=== PATIENT | female | born 1970 | race Caucasian/White ===

== ENCOUNTER → 2016-09-13 | Outpatient (CLI) | payer OTHER ==
--- NOTE | 2016-09-14 08:34 | MM ---
Reason for exam: clinical finding. Last mammogram was performed 2 years and 11 months ago. History: Patient had first child at age 29. Family history of breast cancer in mother at age 50 and breast cancer in aunt. Took hormonal contraceptives for 1 year beginning at age 38. Indicated problem(s): palpable abnormality in the right breast. Physical Findings: Nurse Summary: a 1cm nodule in the right breast at 11 o'clock (nurse rm). MG 3D Diag Mammo W/Cad MEGHANA Bilateral CC and MLO view(s) were taken. Prior study comparison: October 15, 2013, bilateral MG screening mammo w CAD. November 07, 2012, right diagnostic mammogram w/CAD. There are scattered fibroglandular densities. There is no discrete abnormality including area of concern. No significant new findings when compared with previous films. These results were verbally communicated with the patient and result sheet given to the patient on 09/13/16. ASSESSMENT: Incomplete: need additional imaging evaluation, BI-RAD 0 RECOMMENDATION: Ultrasound of the right breast. Manage patient on a clinical basis.
--- NOTE | 2016-09-14 09:37 | USB ---
Reason for exam: additional evaluation requested from abnormal screening. History: Patient had first child at age 29. Family history of breast cancer in mother at age 50 and breast cancer in aunt. Took hormonal contraceptives for 1 year beginning at age 38. US Breast Limited RT Right breast ultrasound indicates a 0.7 x 0.4 x 0.4cm oval, hyperechoic superiorly with hypoechoic posteriorly lesion at 10 o'clock. These results were verbally communicated with the patient and result sheet given to the patient on 09/13/16. ASSESSMENT: Suspicious, BI-RAD 4 RECOMMENDATION: Ultrasound core biopsy of the right breast. Called Dr. Amador with mammographic findings and has scheduled an appointment for the patient for 10/14/16 at 10:[address] Presley. Ultrasound core biopsy scheduled for 09/22/16 at 1 o'clock. PRELIMINARY REPORT CALLED AND FAXED TO DR. PRESLEY ON 09/14/16 AT 300/TP.
== END | disposition home or self-care (01) ==
LOC: RADMAMWWP 14:43
PROVIDERS: ATTEND Family Medicine
DX: N63 Unspecified lump in breast (principal); R92.8 Other abnormal and inconclusive findings on diagnostic imaging of breast
CPT/HCPCS: 76642; G0204; G0279

== ENCOUNTER → 2016-09-22 | Day surgery (SDC) | payer OTHER ==
[~2016-09-22] MED LIST: ALPRAZolam 0.25 MG TAB ONE; BACITRACIN OINT 1 EACH PACKET TOPICAL ONE; LIDOCAINE 1% INJ 10MG/ML (20 ML MDV) ONE; LIDOCAINE 1%-EPI 1:100,000 20 ML VIAL ONE
--- NOTE | 2016-09-22 14:53 | USB ---
EXAMINATION TYPE: US biopsy breast VAD RT, MG diagnostic mammo RT wo CAD DATE OF EXAM: 09/22/2016 1:56 PM CLINICAL HISTORY: R92.8 Abn ultrasound. Palpable abnormality. TECHNIQUE: Ultrasound guided core biopsy of right breast with clip placement and follow-up two-view mammogram. COMPARISON: Right breast ultrasound and mammogram September 2016 FINDINGS: The procedure of ultrasound guided core biopsy was explained to the patient. Benefits, alternatives, and risks were discussed. An informed consent was then obtained. The patient was placed in supine positioning for imaging and for the procedure. Preprocedure ultrasound redemonstrates vague slightly shadowing hypoechoic area 10:00 position in right breast measuring up to 1.1 cm. The overlying skin was prepped and draped in usual sterile fashion. Lidocaine was used as anesthetic into the skin and subcutaneous tissue up to area of concern in the right breast. Lidocaine with epinephrine is used into the deeper tissue. Under ultrasound guidance, a 12-gauge vacuum assisted biopsy gun device was used to obtain 3 core samples. Following this, a biopsy clip was left in lesion. The patient tolerated the procedure well without any immediate complication. The patient was kept in the radiology department for short stay after the procedure and then discharged home in stable condition. Postprocedure mammogram shows successful deployment of clip correlating to level of palpable abnormality. IMPRESSION: Successful, uncomplicated ultrasound guided core biopsy of area of concern in the right breast, full pathology results to follow. Low to intermediate index of suspicion noted at time of procedure. Pathology Results: Benign BREAST, RIGHT, ULTRASOUND CORE BIOPSY: BENIGN BREAST WITH PROMINENT ADIPOSE TISSUE AND FOCAL FIBROCYSTIC CHANGE (STROMAL FIBROSIS AND CYST FORMATION). Recommendation Follow up ultrasound of the right breast in 6 months. HELGA
== END ==
LOC: RADUSWWP 11:45
PROVIDERS: ATTEND Surgery
DX: N60.01 Solitary cyst of right breast (principal); N60.31 Fibrosclerosis of right breast; R92.8 Other abnormal and inconclusive findings on diagnostic imaging of breast; Z88.6 Allergy status to analgesic agent; Z88.5 Allergy status to narcotic agent; Z88.0 Allergy status to penicillin
CPT/HCPCS: 88305; 19083; G0206; A4648; J2001

== ENCOUNTER 2016-12-09 16:58 | Emergency (ER) | payer OTHER ==
[2016-12-09] MEDS ORDERED: SODIUM CHLORIDE 0.9% 1,000 ML IV ONE (18:57)
--- NOTE | 2016-12-09 19:03 | ED ---
Abdominal Pain HPI - General Chief Complaint: Abdominal Pain Stated Complaint: Abd Pain Time Seen by Provider: 12/09/16 18:32 Source: patient, RN notes reviewed Mode of arrival: ambulatory Limitations: no limitations - History of Present Illness Initial Comments: Patient is a 46-year-old female presents to the emergency room for evaluation of abdominal pain. Patient states she noticed pain on the right side of her abdomen earlier this morning. Patient states she got home she noticed her abdomen appeared swollen so she came she came here to be evaluated. Patient states she had a lap band [place] [address] Presley. Patient denies nausea or vomiting. Patient denies headache or dizziness. Patient denies chest pain or shortness of breath. Patient denies any other abdominal surgical history. Patient also states that since she's been here she's had 3 episodes of diarrhea. Patient denies blood in stools or dark tarry stools. Patient denies recent travel out of the country. Patient denies new foods. Patient denies recent antibiotic use. - Related Data Home Medications Medication Instructions Recorded Confirmed Topiramate [Topamax] 50 mg PO BID 11/06/13 12/09/16 Inulin/Chromium Picolinate [Fiber 1 tab PO DAILY 12/09/16 12/09/16 Gummies Chew] Multivitamin [Multivitamins Adult 1 tab PO DAILY 12/09/16 12/09/16 Gummies] Vitamin C/Biotin [Hair, Skin and 1 tab PO DAILY 12/09/16 12/09/16 Nails] Previous Rx's Medication Instructions Recorded Dicyclomine [Bentyl] 10 mg PO TID PRN #12 capsule 12/09/16 Ondansetron Odt [Zofran Odt] 4 mg PO Q8HR PRN #12 tab 12/09/16 Sulfamethox-Tmp 800-160Mg [Bactrim 1 tab PO Q12HR 10 Days 12/09/16 DS 800-160 mg] Allergies Allergy/AdvReac Type Severity Reaction Status Date / Time codeine Allergy Swelling Verified 12/09/16 18:41 Penicillins Allergy Swelling Verified 12/09/16 18:41 aspirin AdvReac Swelling Verified 12/09/16 18:41 Review of Systems ROS Statement: Those systems with pertinent positive or pertinent negative responses have been documented in the HPI. ROS Other: All systems not noted in ROS Statement are negative. Past Medical History Past Medical History: Hypertension Additional Past Medical History / Comment(s): Migraines History of Any Multi-Drug Resistant Organisms: None Reported Past Surgical History: Uterine Ablation Additional Past Surgical History / Comment(s): gastric sleeve Past Psychological History: No Psychological Hx Reported Smoking Status: Former smoker Past Alcohol Use History: Rare Past Drug Use History: None Reported - Past Family History Mother Family Medical History: COPD (Mother is a 60-year-old has history of diabetes hypertension and emphysema), Diabetes Mellitus, Hypertension Father Family Medical History: COPD, Diabetes Mellitus, Hypertension (Father is 70-year -old has history of diabetes hypertension and COPD) Sister(s) Family Medical History: No Reported History (Patient has one sister and 3 half- sisters) Brother(s) Family Medical History: No Reported History (Patient has 2 brothers and 2 half- brothers no major medical problems) Son(s) Family Medical History: No Reported History (Patient had one stillborn at 6 months gestation, she has an adopted son.) General Exam - General Exam Comments Initial Comments: sitting in exam room, no acute distress. Limitations: no limitations General appearance: alert, in no apparent distress Head exam: Present: atraumatic, normocephalic, normal inspection Eye exam: Present: normal appearance ENT exam: Present: normal exam Neck exam: Present: normal inspection Respiratory exam: Present: normal lung sounds bilaterally. Absent: respiratory distress Cardiovascular Exam: Present: regular rate, normal rhythm, normal heart sounds GI/Abdominal exam: Present: soft, normal bowel sounds. Absent: distended, tenderness, guarding, rebound, rigid Extremities exam: Present: normal inspection Back exam: Present: normal inspection Neurological exam: Present: alert, oriented X3, CN II-XII intact, normal gait Psychiatric exam: Present: normal affect, normal mood Skin exam: Present: warm, dry, intact, normal color. Absent: rash Course Vital Signs 12/09/16 12/09/16 12/09/16 17:06 19:43 22:38 Temperature 98.5 F 97.2 F L Pulse Rate 70 63 66 Respiratory 20 18 Rate Blood Pressure 161/97 140/63 175/84 O2 Sat by Pulse 99 96 97 Oximetry 12/09/16 12/09/16 23:35 23:56 Temperature 97.9 F Pulse Rate 70 Respiratory 16 Rate Blood Pressure 153/92 O2 Sat by Pulse 99 Oximetry Medical Decision Making - Medical Decision Making Patient is a 46-year-old female since emergency room for evaluation of abdominal pain. Abdomen/pelvis CT: Wall thickening or inflammatory hoarseness of the duodenum and proximal jejunum. Differential considerations include enteritis due to infectious or inflammatory bowel disease.patient be placed on antibiotics to treat pharyngitis. Patient is sent home with Zofran and Bentyl for pain. Advised patient to follow-up with her primary care provider or general surgeon for reevaluation. Patient states she understands everything that was discussed with her. Return parameters discussed. Case discussed with Dr. Olivas. - Lab Data Result diagrams: 12/09/16 19:13 12/09/16 19:13 Lab Results 12/09/16 12/09/16 12/09/16 Range/Units 18:49 18:49 19:04 WBC (3.8-10.6) k/uL RBC (3.80-5.40) m/uL Hgb (11.4-16.0) gm/dL Hct (34.0-46.0) % MCV (80.0-100.0) fL MCH (25.0-35.0) pg MCHC (31.0-37.0) g/dL RDW (11.5-15.5) % Plt Count (150-450) k/uL Neutrophils % % Lymphocytes % % Monocytes % % Eosinophils % % Basophils % % Neutrophils # (1.3-7.7) k/uL Lymphocytes # (1.0-4.8) k/uL Monocytes # (0-1.0) k/uL Eosinophils # (0-0.7) k/uL Basophils # (0-0.2) k/uL Sodium (137-145) mmol/L Potassium (3.5-5.1) mmol/L Chloride (98-107) mmol/L Carbon Dioxide (22-30) mmol/L Anion Gap mmol/L BUN (7-17) mg/dL Creatinine (0.52-1.04) mg/dL Est GFR (MDRD) Af Amer (>60 ml/min/1.73 sqM) Est GFR (MDRD) Non-Af (>60 ml/min/1.73 sqM) Glucose (74-99) mg/dL Calcium (8.4-10.2) mg/dL Magnesium (1.6-2.3) mg/dL Total Bilirubin (0.2-1.3) mg/dL AST (14-36) U/L ALT (9-52) U/L Alkaline Phosphatase (38-126) U/L Total Protein (6.3-8.2) g/dL Albumin (3.5-5.0) g/dL Amylase (30-110) U/L Lipase (23-300) U/L Urine Color Yellow Urine Appearance Cloudy H (Clear) Urine pH 5.5 (5.0-8.0) Ur Specific [place] 1.021 (1.001-1.035) Urine Protein Negative (Negative) Urine Glucose (UA) Negative (Negative) Urine Ketones Negative (Negative) Urine Blood Trace H (Negative) Urine Nitrite Negative (Negative) Urine Bilirubin Negative (Negative) Urine Urobilinogen <2.0 (<2.0) mg/dL Ur Leukocyte Esterase Negative (Negative) Urine RBC 6 H (0-5) /hpf Urine WBC 1 (0-5) /hpf Ur Squamous Epith Cells 2 (0-4) /hpf Urine Mucus Rare H (None) /hpf Stool Occult Blood Negative (Negative) C. difficile (EIA) Intrp Negative (Negative) 12/09/16 12/09/16 Range/Units 19:13 19:13 WBC 8.3 (3.8-10.6) k/uL RBC 4.87 (3.80-5.40) m/uL Hgb 14.9 (11.4-16.0) gm/dL Hct 44.0 (34.0-46.0) % MCV 90.3 (80.0-100.0) fL MCH 30.6 (25.0-35.0) pg MCHC 33.8 (31.0-37.0) g/dL RDW 12.9 (11.5-15.5) % Plt Count 206 (150-450) k/uL Neutrophils % 56 % Lymphocytes % 36 % Monocytes % 5 % Eosinophils % 1 % Basophils % 0 % Neutrophils # 4.6 (1.3-7.7) k/uL Lymphocytes # 3.0 (1.0-4.8) k/uL Monocytes # 0.4 (0-1.0) k/uL Eosinophils # 0.1 (0-0.7) k/uL Basophils # 0.0 (0-0.2) k/uL Sodium 142 (137-145) mmol/L Potassium 4.2 (3.5-5.1) mmol/L Chloride 106 (98-107) mmol/L Carbon Dioxide 24 (22-30) mmol/L Anion Gap 12 mmol/L BUN 19 H (7-17) mg/dL Creatinine 0.80 (0.52-1.04) mg/dL Est GFR (MDRD) Af Amer >60 (>60 ml/min/1.73 sqM) Est GFR (MDRD) Non-Af >60 (>60 ml/min/1.73 sqM) Glucose 87 (74-99) mg/dL Calcium 9.2 (8.4-10.2) mg/dL Magnesium 2.0 (1.6-2.3) mg/dL Total Bilirubin 0.3 (0.2-1.3) mg/dL AST 19 (14-36) U/L ALT 31 (9-52) U/L Alkaline Phosphatase 72 (38-126) U/L Total Protein 6.8 (6.3-8.2) g/dL Albumin 4.2 (3.5-5.0) g/dL Amylase 88 (30-110) U/L Lipase 193 (23-300) U/L Urine Color Urine Appearance (Clear) Urine pH (5.0-8.0) Ur Specific [place] (1.001-1.035) Urine Protein (Negative) Urine Glucose (UA) (Negative) Urine Ketones (Negative) Urine Blood (Negative) Urine Nitrite (Negative) Urine Bilirubin (Negative) Urine Urobilinogen (<2.0) mg/dL Ur Leukocyte Esterase (Negative) Urine RBC (0-5) /hpf Urine WBC (0-5) /hpf Ur Squamous Epith Cells (0-4) /hpf Urine Mucus (None) /hpf Stool Occult Blood (Negative) C. difficile (EIA) Intrp (Negative) - Radiology Data Radiology results: report reviewed, image reviewed Disposition Clinical Impression: Enteritis Disposition: HOME SELF-CARE Condition: Good Instructions: Enteritis (ED) Additional Instructions: Taking antibiotics as directed. Take Bentyl as needed for pain. Take Zofran as needed for nausea. Please follow-up with primary care provider or general surgeon. If any new symptom arises or symptoms worsen, return to ER as soon as possible. Prescriptions: Ondansetron Odt [Zofran Odt] 4 mg PO Q8HR PRN #12 tab PRN Reason: Nausea Sulfamethox-Tmp 800-160Mg [Bactrim DS 800-160 mg] 1 tab PO Q12HR 10 Days Dicyclomine [Bentyl] 10 mg PO TID PRN #12 capsule PRN Reason: Nausea Referrals: Chino Amador MD [Primary Care Provider] - 1-2 days Time of Disposition: 23:38
[2016-12-09 19:11] LABS: Appearance,Urine Cloudy (Clear); Bilirubin,Urine Negative (Negative); Glucose,Urine (UA) Negative (Negative); Ketones,Urine Negative (Negative); Leukocyte Esterase,Urine Negative (Negative); Mucus,Urine Rare /hpf; Nitrite,Urine Negative (Negative); PH, Urine 5.5 (5.0-8.0); Particle Count 1429; Protein,Urine Negative (Negative); RBC,Urine 6 /hpf (0-5); Specific Gravity,Urine 1.021 (1.001-1.035); Squamous Epithelial Cell,Urine 2 /hpf (0-4); UA Billing (MACRO vs. MICRO) MICRO; Urobilinogen,Urine <2.0 mg/dL (<2.0); WBC,Urine 1 /hpf (0-5)
[2016-12-09 19:25] LABS: Basophils % (A) 0 %; CH 31.1; CHCM 34.5; Eosinophils # (A) 0.1 k/uL (0-0.7); Eosinophils % (A) 1 %; HDW 2.46; HGB 14.9 gm/dL (11.4-16.0); Luc # (Auto) 0.12; Luc % (Auto) 2; Lymphocytes % (A) 36 %; MCH 30.6 pg (25.0-35.0); MCHC 33.8 g/dL (31.0-37.0); MCV 90.3 fL (80.0-100.0); Mean Platelet Volume 7.7; Monocytes # (A) 0.4 k/uL (0-1.0); Monocytes % (A) 5 %; Neutrophils # (A) 4.6 k/uL (1.3-7.7); Neutrophils % (A) 56 %; RBC 4.87 m/uL (3.80-5.40); RDW 12.9 % (11.5-15.5); WBC 8.3 k/uL (3.8-10.6); WBC (Perox) 8.16
[2016-12-09 19:35] LABS: ALT 31 U/L (9-52); AST 19 U/L (14-36); Alkaline Phosphatase 72 U/L (38-126); Amylase 88 U/L (30-110); Anion Gap 12 mmol/L; Blood Urea Nitrogen 19 mg/dL (7-17); Calcium 9.2 mg/dL (8.4-10.2); Carbon Dioxide 24 mmol/L (22-30); Chloride 106 mmol/L (98-107); Glucose 87 mg/dL (74-99); Non-African American GFR(MDRD) >60 (>60 ml/min/1.73 sqM); Potassium 4.2 mmol/L (3.5-5.1); Sodium 142 mmol/L (137-145); Total Bilirubin 0.3 mg/dL (0.2-1.3); Total Protein 6.8 g/dL (6.3-8.2)
[2016-12-09] MEDS ORDERED: RX INFO: IV CONTRAST WAS GIVEN 1 EACH MISC MISCELLANE PRN (20:29)
[2016-12-09] MEDS ORDERED: IOHEXOL 350 MG/ML 25 ML BOTTLE (ORAL USE) PO PRN (20:29)
[2016-12-09] MEDS ORDERED: MORPHINE SULFATE 4 MG/ML SYRINGE IVP STA ×2 (20:31→23:31)
--- NOTE | 2016-12-09 23:10 | CT ---
EXAM: CT Abdomen and Pelvis With Intravenous Contrast CLINICAL HISTORY: Reason: Pain TECHNIQUE: Axial computed tomography images of the abdomen and pelvis with intravenous contrast. CTDI is 19.71 mGy and DLP is 1461 mGy-cm. This CT exam was performed using one or more of the following dose reduction techniques: automated exposure control, adjustment of the mA and/or kV according to patient size, and/or use of iterative reconstruction technique. COMPARISON: Noncontrast CT abdomen-pelvis 03/24/2016. FINDINGS: Lower thorax: No acute findings. ABDOMEN: Liver: Mild fatty infiltration of liver without focal lesion. Gallbladder and bile ducts: Unremarkable. No calcified stones. No ductal dilation. Pancreas: Unremarkable. No mass. No ductal dilation. Spleen: Unremarkable. No splenomegaly. Adrenals: Unremarkable. No mass. Kidneys and ureters: Unremarkable. No renal mass. No hydronephrosis. Stomach and bowel: Mild wall thickening third and fourth portions of the duodenum and proximal jejunum. Borderline wall thickening of the hepatic flexure, possibly related to underdistention. Mild sigmoid diverticulosis without evidence of acute diverticulitis. Gastric postsurgical changes. No evidence of bowel obstruction or perforation. Contrast in distal esophagus which may be related to delayed esophageal clearing or gastroesophageal reflux. Appendix: No findings to suggest acute appendicitis. PELVIS: Bladder: Unremarkable. Reproductive: Unremarkable as visualized. ABDOMEN and PELVIS: Intraperitoneal space: Unremarkable. No free air. No abnormal fluid collection. Bones/joints: No acute bony abnormalities Soft tissues: Unremarkable. Vasculature: No abdominal aortic aneurysm. Lymph nodes: No pathologically enlarged lymphadenopathy identified IMPRESSION: Mild wall thickening third and fourth portions of the duodenum and proximal jejunum. Differential considerations would include enteritis due to infectious or inflammatory bowel disease. Apparent wall thickening of the hepatic flexure, possibly related to underdistention. No evidence of bowel obstruction. Mild sigmoid diverticulosis without evidence of acute diverticulitis. Hepatic steatosis.
[2016-12-09 23:37] VITALS: BP 153/92; PULSE 70; RESP 16
[2016-12-09 23:57] VITALS: TEMP 97.9
== END 2016-12-09 23:57 | disposition home or self-care (01) ==
LOC: EC 16:58
DX: K52.9 Noninfective gastroenteritis and colitis, unspecified (principal); Z87.891 Personal history of nicotine dependence; Z79.899 Other long term (current) drug therapy; Z88.0 Allergy status to penicillin; Z88.5 Allergy status to narcotic agent; Z88.6 Allergy status to analgesic agent; Z98.84 Bariatric surgery status; Z98.890 Other specified postprocedural states
CPT/HCPCS: 99284; 96374; 96376; 96361; 36415; 80053; 82150; 83690; 83735; 85025; 82272; 81001; 87324; 87086; 89055; 74177; J2270; Q9967

== ENCOUNTER → 2017-04-29 | Outpatient (CLI) | payer OTHER ==
--- NOTE | 2017-05-03 08:10 | USB ---
Reason for exam: follow-up at short interval from prior study. History: Patient had first child at age 29. Family history of breast cancer in mother at age 50 and breast cancer in aunt. Benign US biopsy breast VAD RT of the right breast, September 22, 2016. Took hormonal contraceptives for 1 year beginning at age 38. Physical Findings: Nurse Summary:There is a 1cm round movable nodule in the right breast at 12 o'clock, and a 1cm soft lump questionable lipoma in the right breast at 2 o'clock (nurse mj). US Breast RT Right breast ultrasound includes all four quadrants, the retroareolar region and axilla. Finding demonstrates no cystic or solid lesion seen. These results were verbally communicated with the patient and result sheet given to the patient on 04/29/17. ASSESSMENT: Negative, BI-RAD 1 RECOMMENDATION: Follow-up diagnostic mammogram of both breasts in 6 months. Back on schedule.
== END | disposition home or self-care (01) ==
LOC: RADUSWWP 10:20
PROVIDERS: ATTEND Surgery
DX: R92.8 Other abnormal and inconclusive findings on diagnostic imaging of breast (principal)

== ENCOUNTER 2017-06-15 22:12 | Emergency (ER) | payer OTHER ==
[2017-06-15] MEDS ORDERED: ONDANSETRON 4 MG/2 ML VIAL IVP STA (23:06)
[2017-06-15] MEDS ORDERED: HYDROmorphone 0.5 MG/0.5 ML SYRINGE IVP STA (23:06)
[2017-06-15] MEDS ORDERED: RX INFO: IV CONTRAST WAS GIVEN 1 EACH MISC MISCELLANE PRN (23:08)
[2017-06-15 23:41] LABS: Basophils % (A) 0 %; Eosinophils # (A) 0.1 k/uL (0-0.7); Eosinophils % (A) 1 %; HCT 42.1 % (34.0-46.0); HGB 13.8 gm/dL (11.4-16.0); Lymphocytes # (A) 1.9 k/uL (1.0-4.8); Lymphocytes % (A) 27 %; MCH 29.8 pg (25.0-35.0); MCHC 32.8 g/dL (31.0-37.0); Mean Platelet Volume 7.2; Monocytes # (A) 0.4 k/uL (0-1.0); Monocytes % (A) 6 %; Neutrophils # (A) 4.4 k/uL (1.3-7.7); Neutrophils % (A) 64 %; Platelet Count 219 k/uL (150-450); RBC 4.63 m/uL (3.80-5.40); RDW 12.3 % (11.5-15.5); WBC 6.9 k/uL (3.8-10.6)
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
[2017-06-15 23:55] LABS: ALT 21 U/L (9-52); AST 16 U/L (14-36); Alcohol <10 mg/dL; Alkaline Phosphatase 66 U/L (38-126); Anion Gap 10 mmol/L; Blood Urea Nitrogen 18 mg/dL (7-17); Calcium 9.3 mg/dL (8.4-10.2); Carbon Dioxide 28 mmol/L (22-30); Chloride 102 mmol/L (98-107); Glucose 114 mg/dL (74-99); Potassium 4.3 mmol/L (3.5-5.1); Sodium 140 mmol/L (137-145); Total Bilirubin 0.3 mg/dL (0.2-1.3); Total Protein 6.6 g/dL (6.3-8.2)
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
--- NOTE | 2017-06-16 00:17 | XR ---
EXAMINATION TYPE: XR pelvis AP view DATE OF EXAM: 06/16/2017 COMPARISON: NONE HISTORY: Pain after injury TECHNIQUE: Single view FINDINGS: Pelvic ring is intact. Proximal femurs and hip joints are intact. Sacroiliac joints appear normal. IMPRESSION: Negative pelvis exam.
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
[2017-06-16 00:39] LABS: Appearance,Urine Clear (Clear); Bilirubin,Urine Negative (Negative); Blood,Urine Negative (Negative); Color,Urine Light Yellow; Glucose,Urine (UA) Negative (Negative); Ketones,Urine Negative (Negative); Leukocyte Esterase,Urine Negative (Negative); Nitrite,Urine Negative (Negative); PH, Urine 6.5 (5.0-8.0); Protein,Urine Negative (Negative); Specific Gravity,Urine 1.015 (1.001-1.035); Urobilinogen,Urine <2.0 mg/dL (<2.0)
[2017-06-16] MEDS ORDERED: ACETAMINOPHEN TAB 500 MG TAB PO STA (00:42)
[2017-06-16 00:49] LABS: Amphetamine Screen,Urine Not Detected (NotDetected); Barbiturate Screen,Urine Not Detected (NotDetected); Benzodiazepines Screen,Urine Not Detected (NotDetected); Cocaine Screen,Urine Not Detected (NotDetected); Methadone Screen, Urine Not Detected (NotDetected); Opiate Screen,Urine Not Detected (NotDetected); Oxycodone Screen, Urine Not Detected (NotDetected); Phencyclidine Screen,Urine Not Detected (NotDetected); Tricyclic Antidepressant,Urine Not Detected (NotDetected); Urn Cannabinoid Scrn Not Detected (NotDetected)
[2017-06-16 01:05] VITALS: BP 134/74; PULSE 68; RESP 18; TEMP 97.7
== END 2017-06-16 01:03 | disposition home or self-care (01) ==
LOC: EC 22:12
DX: M54.5 Low back pain (principal); M54.6 Pain in thoracic spine; M54.2 Cervicalgia; R51 Headache; R10.11 Right upper quadrant pain; Z87.891 Personal history of nicotine dependence; Z79.899 Other long term (current) drug therapy; Z88.0 Allergy status to penicillin; Z88.5 Allergy status to narcotic agent; Z88.6 Allergy status to analgesic agent; V49.49XA Driver injured in collision with other motor vehicles in traffic accident, initial encounter; Y92.410 Unspecified street and highway as the place of occurrence of the external cause
CPT/HCPCS: 36415; 93005; 80053; 85025; 80320; 99285; 96374; 96375; J2405; J1170; 70450; 71045; 71260; 72125; 72170; 74177; 80306; 81003; 86850; 86900; 86901

== ENCOUNTER 2017-10-10 21:14 | Observation (INO) | payer OTHER ==
[2017-10-10 21:39] LABS: Glucose,Whole Blood 97 mg/dL (75-99)
[2017-10-10] MEDS ORDERED: SODIUM CHLORIDE 0.9% 1,000 ML IV STA (22:06)
[2017-10-10] MEDS ORDERED: SODIUM CHLORIDE 0.9% 500 ML IV STA (22:06)
[2017-10-10] MEDS ORDERED: hydrALAZINE HCL 20 MG/ML 1 ML VIAL IVP STA (22:08)
--- NOTE | 2017-10-10 22:13 | ED ---
Syncope HPI - General Chief Complaint: Syncope Stated Complaint: syncope/head injury Time Seen by Provider: 10/10/17 21:59 Source: patient Mode of arrival: wheelchair Limitations: altered mental status - History of Present Illness Initial Comments: This 46-year-old white female presents with family with the complaint of a syncopal episode. Her nephew was present when this occurred. She apparently had an argument with one of her kids and was severely stressed out. She walked into the other room and the nephew heard her fall and hit the ground. He states that she was unconscious when he found her. She was unconscious for approximately 2 minutes. She seemed quite slow to respond afterwards so they called EMS. She apparently likely hit her head. She is complaining of a headache. She also complains of some pain to her left ankle laterally. She later relates some pain into her left knee as well. She denies any other injuries. She does not have any neck pain. She is still fairly slow to respond and her family states that she normally is fairly quick to respond. She did take some acetaminophen earlier but denies any other recent drugs. She denies any previous similar incidents. She denies feeling anxious currently. No other modifying factors. She relates that she felt dizzy prior to the incident but otherwise does not remember what happened. The nephew did not see any seizure-like activity. - Related Data Home Medications Medication Instructions Recorded Confirmed No Known Home Medications [No 10/10/17 10/10/17 Known Home Medications] Allergies Allergy/AdvReac Type Severity Reaction Status Date / Time codeine Allergy Swelling Verified 10/10/17 21:55 Penicillins Allergy Swelling Verified 10/10/17 21:55 aspirin AdvReac Swelling Verified 10/10/17 21:55 Review of Systems ROS Statement: Those systems with pertinent positive or pertinent negative responses have been documented in the HPI. ROS Other: All systems not noted in ROS Statement are negative. Past Medical History Past Medical History: Hypertension Additional Past Medical History / Comment(s): Migraines History of Any Multi-Drug Resistant Organisms: None Reported Past Surgical History: Uterine Ablation Additional Past Surgical History / Comment(s): gastric sleeve Past Psychological History: No Psychological Hx Reported Smoking Status: Former smoker Past Alcohol Use History: Rare Past Drug Use History: None Reported - Past Family History Mother Family Medical History: COPD (Mother is a 60-year-old has history of diabetes hypertension and emphysema), Diabetes Mellitus, Hypertension Father Family Medical History: COPD, Diabetes Mellitus, Hypertension (Father is 70-year -old has history of diabetes hypertension and COPD) Sister(s) Family Medical History: No Reported History (Patient has one sister and 3 half- sisters) Brother(s) Family Medical History: No Reported History (Patient has 2 brothers and 2 half- brothers no major medical problems) Son(s) Family Medical History: No Reported History (Patient had one stillborn at 6 months gestation, she has an adopted son.) General Exam - General Exam Comments Initial Comments: GENERAL: The patient is well nourished and well hydrated. VITAL SIGNS: Heart rate, blood pressure, respiratory rate reviewed as recorded in nurse's notes. EYES: Pupils are round and reactive. Extraocular movements are intact. No conjunctival / lid redness or swelling. ENT: No external evidence of injury, swelling, or ecchymosis. Airway is patent. Throat is clear. NECK: Nontender. No swelling or evidence of injury. No subcutaneous emphysema. Trachea is midline. No thyroid mass. HEART: Regular rate and rhythm. Good peripheral pulses. LUNGS/CHEST: Breath sounds clear and equal bilaterally. No rales, rhonchi, or wheezes. No ecchymosis, subcutaneous emphysema, or tenderness. ABDOMEN: Abdomen soft without tenderness. No palpable masses or organomegaly. No peritoneal signs. No abdominal wall swelling or ecchymosis. EXTREMITIES: Tenderness and mild swelling noted to the lateral aspect of the left ankle. There is mild diffuse tenderness to the left knee. Normal muscle tone and function. No thoracolumbar tenderness. NEUROLOGIC: Sensation is grossly intact. Cranial nerve exam reveals face is symmetrical, tongue is midline, speech is clear. She is slow to respond. SKIN: No abrasions or ecchymosis is noted. No induration or masses noted. PSYCHIATRIC: Alert and oriented. Appropriate behavior and judgment. Limitations: altered mental status Course Vital Signs 10/10/17 10/10/17 10/10/17 21:19 21:55 22:20 Temperature 97.8 F Pulse Rate 68 68 66 Respiratory 18 18 18 Rate Blood Pressure 217/118 182/105 174/99 O2 Sat by Pulse 97 95 95 Oximetry 10/10/17 23:44 Temperature Pulse Rate 78 Respiratory 18 Rate Blood Pressure 147/87 O2 Sat by Pulse 98 Oximetry Medical Decision Making - Medical Decision Making The patient was seen and examined. All diagnostics were reviewed. She is placed on a cardiac technologist no ectopy is identified. An IV is established. The EKG shows a normal sinus rhythm at a rate of 68. There is no acute ST-T wave changes noted. The PA intervals 158, QRS duration is 82, and the QTC intervals 444. She is mildly hydrated. She is significantly hypertensive and does receive 10 mg of hydralazine intravenously. The laboratories reviewed and is unremarkable. The left knee and left ankle x-ray are negative for any fracture. The patient also had a computed tomography scan of the brain as well as the cervical spine and this is negative for any acute process. She is doing remarkably improved on recheck. She now he is back to have a normal speech. The exact cause for syncope is not definitively determine but it is felt as though she benefit from additional observation in regard to the syncope, delayed speech, and hypertensive crisis. The case is discussed with Dr. Sexton and he is agreeable with admission. - Lab Data Result diagrams: 10/10/17 21:53 10/10/17 21:53 Lab Results 10/10/17 10/10/17 10/10/17 Range/Units 21:38 21:53 21:53 WBC 7.5 (3.8-10.6) k/uL RBC 4.96 (3.80-5.40) m/uL Hgb 14.5 (11.4-16.0) gm/dL Hct 43.5 (34.0-46.0) % MCV 87.6 (80.0-100.0) fL MCH 29.3 (25.0-35.0) pg MCHC 33.4 (31.0-37.0) g/dL RDW 12.5 (11.5-15.5) % Plt Count 197 (150-450) k/uL Neutrophils % 56 % Lymphocytes % 34 % Monocytes % 6 % Eosinophils % 1 % Basophils % 0 % Neutrophils # 4.2 (1.3-7.7) k/uL Lymphocytes # 2.5 (1.0-4.8) k/uL Monocytes # 0.5 (0-1.0) k/uL Eosinophils # 0.1 (0-0.7) k/uL Basophils # 0.0 (0-0.2) k/uL PT (9.0-12.0) sec INR (<1.2) APTT (22.0-30.0) sec Sodium (137-145) mmol/L Potassium (3.5-5.1) mmol/L Chloride (98-107) mmol/L Carbon Dioxide (22-30) mmol/L Anion Gap mmol/L BUN (7-17) mg/dL Creatinine (0.52-1.04) mg/dL Est GFR (CKD-EPI)AfAm (>60 ml/min/1.73 sqM) Est GFR (CKD-EPI)NonAf (>60 ml/min/1.73 sqM) Glucose (74-99) mg/dL POC Glucose (mg/dL) 97 (75-99) mg/dL POC Glu Ends Down Checker Betsey Mason Calcium (8.4-10.2) mg/dL Total Bilirubin (0.2-1.3) mg/dL AST (14-36) U/L ALT (9-52) U/L Alkaline Phosphatase (38-126) U/L Total Creatine Kinase 40 (30-135) U/L CK-MB (CK-2) 0.6 (0.0-2.4) ng/mL CK-MB (CK-2) Rel Index 1.5 Troponin I <0.012 (0.000-0.034) ng/mL Total Protein (6.3-8.2) g/dL Albumin (3.5-5.0) g/dL Urine Color Urine Appearance (Clear) Urine pH (5.0-8.0) Ur Specific [place] (1.001-1.035) Urine Protein (Negative) Urine Glucose (UA) (Negative) Urine Ketones (Negative) Urine Blood (Negative) Urine Nitrite (Negative) Urine Bilirubin (Negative) Urine Urobilinogen (<2.0) mg/dL Ur Leukocyte Esterase (Negative) Serum Alcohol mg/dL 10/10/17 10/10/17 10/10/17 Range/Units 21:53 21:53 23:32 WBC (3.8-10.6) k/uL RBC (3.80-5.40) m/uL Hgb (11.4-16.0) gm/dL Hct (34.0-46.0) % MCV (80.0-100.0) fL MCH (25.0-35.0) pg MCHC (31.0-37.0) g/dL RDW (11.5-15.5) % Plt Count (150-450) k/uL Neutrophils % % Lymphocytes % % Monocytes % % Eosinophils % % Basophils % % Neutrophils # (1.3-7.7) k/uL Lymphocytes # (1.0-4.8) k/uL Monocytes # (0-1.0) k/uL Eosinophils # (0-0.7) k/uL Basophils # (0-0.2) k/uL PT 9.9 (9.0-12.0) sec INR 1.0 (<1.2) APTT 21.9 L (22.0-30.0) sec Sodium 140 (137-145) mmol/L Potassium 4.4 (3.5-5.1) mmol/L Chloride 104 (98-107) mmol/L Carbon Dioxide 24 (22-30) mmol/L Anion Gap 12 mmol/L BUN 20 H (7-17) mg/dL Creatinine 0.60 (0.52-1.04) mg/dL Est GFR (CKD-EPI)AfAm >90 (>60 ml/min/1.73 sqM) Est GFR (CKD-EPI)NonAf >90 (>60 ml/min/1.73 sqM) Glucose 97 (74-99) mg/dL POC Glucose (mg/dL) (75-99) mg/dL POC Glu Ends Down Checker ID Calcium 9.4 (8.4-10.2) mg/dL Total Bilirubin 0.3 (0.2-1.3) mg/dL AST 20 (14-36) U/L ALT 27 (9-52) U/L Alkaline Phosphatase 67 (38-126) U/L Total Creatine Kinase (30-135) U/L CK-MB (CK-2) (0.0-2.4) ng/mL CK-MB (CK-2) Rel Index Troponin I (0.000-0.034) ng/mL Total Protein 6.7 (6.3-8.2) g/dL Albumin 4.2 (3.5-5.0) g/dL Urine Color Colorless Urine Appearance Clear (Clear) Urine pH 7.0 (5.0-8.0) Ur Specific [place] 1.008 (1.001-1.035) Urine Protein Negative (Negative) Urine Glucose (UA) Negative (Negative) Urine Ketones Negative (Negative) Urine Blood Negative (Negative) Urine Nitrite Negative (Negative) Urine Bilirubin Negative (Negative) Urine Urobilinogen <2.0 (<2.0) mg/dL Ur Leukocyte Esterase Negative (Negative) Serum Alcohol <10 mg/dL Disposition Clinical Impression: Syncope, Head injury, Ankle sprain, Fall from standing, Hypertensive crisis, Knee sprain, Delayed speech, Anxiety Disposition: ADMITTED IP TO THIS HOSP Condition: Fair Is patient prescribed a controlled substance at d/c from ED?: No Referrals: Chino Amador MD [Primary Care Provider] - 1-2 days Time of Disposition: 00:27 Decision Date: 10/11/17 Decision Time: 00:27
[2017-10-10 22:23] LABS: Basophils % (A) 0 %; Eosinophils # (A) 0.1 k/uL (0-0.7); Eosinophils % (A) 1 %; HCT 43.5 % (34.0-46.0); HGB 14.5 gm/dL (11.4-16.0); Lymphocytes # (A) 2.5 k/uL (1.0-4.8); Lymphocytes % (A) 34 %; MCH 29.3 pg (25.0-35.0); MCHC 33.4 g/dL (31.0-37.0); MCV 87.6 fL (80.0-100.0); Mean Platelet Volume 7.3; Monocytes # (A) 0.5 k/uL (0-1.0); Monocytes % (A) 6 %; Neutrophils # (A) 4.2 k/uL (1.3-7.7); Neutrophils % (A) 56 %; Platelet Count 197 k/uL (150-450); RBC 4.96 m/uL (3.80-5.40); RDW 12.5 % (11.5-15.5); WBC 7.5 k/uL (3.8-10.6)
[2017-10-10 22:30] LABS: ALT 27 U/L (9-52); AST 20 U/L (14-36); Albumin 4.2 g/dL (3.5-5.0); Alcohol <10 mg/dL; Alkaline Phosphatase 67 U/L (38-126); Anion Gap 12 mmol/L; Blood Urea Nitrogen 20 mg/dL (7-17); Calcium 9.4 mg/dL (8.4-10.2); Carbon Dioxide 24 mmol/L (22-30); Chloride 104 mmol/L (98-107); Glucose 97 mg/dL (74-99); Potassium 4.4 mmol/L (3.5-5.1); Sodium 140 mmol/L (137-145); Total Bilirubin 0.3 mg/dL (0.2-1.3); Total Protein 6.7 g/dL (6.3-8.2)
[2017-10-10 22:38] LABS: Partial Thromboplastin Time 21.9 sec (22.0-30.0); Prothrombin Time 9.9 sec (9.0-12.0)
[2017-10-10 22:39] LABS: Creatine Kinase 40 U/L (30-135)
[2017-10-10 22:51] LABS: Creatine Kinase MB 0.6 ng/mL (0.0-2.4); Troponin I <0.012 ng/mL (0.000-0.034)
--- NOTE | 2017-10-10 23:15 | CT ---
EXAMINATION TYPE: CT brain radha wo con DATE OF EXAM: 10/10/2017 COMPARISON: To 718 HISTORY: Syncope with head injury today CT DLP: 1306.7 mGycm Automated exposure control for dose reduction was used. TECHNIQUE: CT scan of the head and cervical spine are performed without contrast. FINDINGS: Ventricles and sulci appear normal. There is no mass effect nor midline shift. There is n o sign of intracranial hemorrhage. The calvarium is intact. Cervical vertebra have normal spacing and alignment. Posterior elements are intact. The facet joints appear normal. I see no bony destructive process. IMPRESSION: Negative CT scan of the brain. Negative CT scan of the cervical spine. No change.
[2017-10-11] LABS: Appearance,Urine Clear (Clear); Bilirubin,Urine Negative (Negative); Blood,Urine Negative (Negative); Color,Urine Colorless; Glucose,Urine (UA) Negative (Negative); Ketones,Urine Negative (Negative); Leukocyte Esterase,Urine Negative (Negative); Nitrite,Urine Negative (Negative); Protein,Urine Negative (Negative); Specific Gravity,Urine 1.008 (1.001-1.035); Urobilinogen,Urine <2.0 mg/dL (<2.0)
--- NOTE | 2017-10-11 00:03 | XR ---
EXAMINATION TYPE: XR ankle complete LT DATE OF EXAM: 10/10/2017 COMPARISON: NONE HISTORY: Ankle pain TECHNIQUE: 3 views FINDINGS: I see no fracture nor dislocation. Ankle mortise is anatomic. There are plantar and Woodrow s calcaneal spurs. IMPRESSION: Calcaneal spurring. No fracture.
--- NOTE | 2017-10-11 00:04 | XR ---
EXAMINATION TYPE: XR knee complete LT DATE OF EXAM: 10/10/2017 COMPARISON: NONE HISTORY: Knee pain TECHNIQUE: 3 views FINDINGS: I see no fracture nor dislocation. Joint spaces are normal. There is no sign of joint effus ion. IMPRESSION: Negative left knee exam.
[2017-10-11] MEDS ORDERED: ONDANSETRON 4 MG/2 ML VIAL IVP PRN (00:28)
[2017-10-11] MEDS ORDERED: NALOXONE 0.4 MG/ML 1 ML VIAL IV PRN (00:28)
[2017-10-11] MEDS ORDERED: ACETAMINOPHEN TAB 325 MG TAB PO PRN (00:28)
[2017-10-11 00:29] LABS: Amphetamine Screen,Urine Not Detected (NotDetected); Barbiturate Screen,Urine Not Detected (NotDetected); Benzodiazepines Screen,Urine Not Detected (NotDetected); Cocaine Screen,Urine Not Detected (NotDetected); Methadone Screen, Urine Not Detected (NotDetected); Opiate Screen,Urine Not Detected (NotDetected); Oxycodone Screen, Urine Not Detected (NotDetected); Phencyclidine Screen,Urine Not Detected (NotDetected); Tricyclic Antidepressant,Urine Not Detected (NotDetected); Urn Cannabinoid Scrn Not Detected (NotDetected)
[2017-10-11] MEDS ORDERED: hydrALAZINE HCL 20 MG/ML 1 ML VIAL IVP PRN (00:31)
[2017-10-11 02:02] VITALS: BMI 33.8
[2017-10-11 06:49] LABS: Creatine Kinase 39 U/L (30-135)
[2017-10-11 07:01] LABS: Creatine Kinase MB 0.4 ng/mL (0.0-2.4); Troponin I <0.012 ng/mL (0.000-0.034)
[2017-10-11] MEDS: ENOXAPARIN 40 MG/0.4 ML SYRINGE SQ SCH (08:41)
[2017-10-11] MEDS ORDERED: PANTOPRAZOLE 40 MG/10 ML VIAL IV SCH (09:00)
[2017-10-11 11:08] LABS: Basophils % (A) 0 %; Eosinophils # (A) 0.1 k/uL (0-0.7); Eosinophils % (A) 1 %; HCT 40.5 % (34.0-46.0); HGB 13.9 gm/dL (11.4-16.0); Lymphocytes # (A) 2.1 k/uL (1.0-4.8); Lymphocytes % (A) 33 %; MCH 30.2 pg (25.0-35.0); MCHC 34.2 g/dL (31.0-37.0); MCV 88.3 fL (80.0-100.0); Mean Platelet Volume 7.4; Monocytes # (A) 0.4 k/uL (0-1.0); Monocytes % (A) 7 %; Neutrophils # (A) 3.6 k/uL (1.3-7.7); Neutrophils % (A) 57 %; Platelet Count 201 k/uL (150-450); RBC 4.58 m/uL (3.80-5.40); RDW 12.6 % (11.5-15.5); WBC 6.3 k/uL (3.8-10.6)
[2017-10-11 11:25] LABS: ALT 27 U/L (9-52); AST 17 U/L (14-36); Albumin 3.7 g/dL (3.5-5.0); Alkaline Phosphatase 66 U/L (38-126); Anion Gap 9 mmol/L; Blood Urea Nitrogen 14 mg/dL (7-17); Calcium 9.2 mg/dL (8.4-10.2); Carbon Dioxide 27 mmol/L (22-30); Chloride 104 mmol/L (98-107); Glucose 100 mg/dL (74-99); Magnesium 1.9 mg/dL (1.6-2.3); Potassium 4.8 mmol/L (3.5-5.1); Sodium 140 mmol/L (137-145); Total Bilirubin 0.4 mg/dL (0.2-1.3); Total Protein 6.1 g/dL (6.3-8.2)
[2017-10-11 11:38] LABS: Creatine Kinase 37 U/L (30-135)
--- NOTE | 2017-10-11 11:38 | P.CNOR ---
History of Present Illness - [facility] Consult date: 10/11/17 Consult reason: joint pain History of present illness: Patient is a 38-year-old female who was admitted to [facility] late last night. Patient came to the ER after a syncopal episode while at home. This was not visualized episode, her nephew found her in her room. Apparently this is the first on the patient's upper had an incidence like this. She is currently admitted to the selective care unit, there are multiple medical specialties on consult. Our orthopedic services consult at with regards to left ankle and left knee pain. Patient is examined today at bedside, she is resting comfortably. She notes pain involving both left knee and ankle. She denies any pain involving the right lower extremity, bilateral upper extremities, new onset cervical, thoracic or lumbar pain. She denies any paresthesias or weakness of either the upper or lower extremities. She denies any previous orthopedic surgery, more specifically of the left lower extremity. Review of Systems Constitutional: Reports as per [facility] Past Medical History Past Medical History: Hypertension Additional Past Medical History / Comment(s): Migraines History of Any Multi-Drug Resistant Organisms: None Reported Past Surgical History: Uterine Ablation Additional Past Surgical History / Comment(s): gastric sleeve Past Psychological History: No Psychological Hx Reported Smoking Status: Former smoker Past Alcohol Use History: Rare Past Drug Use History: None Reported - Past Family History Mother Family Medical History: Chest Pain / Angina, Congestive Heart Failure (CHF), COPD, Diabetes Mellitus, Hypertension Father Family Medical History: Congestive Heart Failure (CHF), COPD, Coronary Artery Disease (CAD), Diabetes Mellitus, Hypertension, Renal Disease Sister(s) Family Medical History: No Reported History Brother(s) Family Medical History: No Reported History Son(s) Family Medical History: No Reported History Medications and Allergies Home Medications Medication Instructions Recorded Confirmed Type No Known Home Medications [No 10/10/17 10/10/17 History Known Home Medications] Allergies Allergy/AdvReac Type Severity Reaction Status Date / Time codeine Allergy Swelling Verified 10/10/17 21:55 Penicillins Allergy Swelling Verified 10/10/17 21:55 aspirin AdvReac Swelling Verified 10/10/17 21:55 Physical Examination Left ankle: No obvious open lesions or areas of ecchymosis There is mild soft tissue swelling over the lateral malleolus No obvious deformity present in the ankle She is able to wiggle the toes is minimal difficulty, plantar flexion, dorsiflexion, EHL, FHL are intact She's tender with palpation over the lateral anterior talofibular ligament, no tenderness with palpation over the dorsum or plantar aspect of the foot, including the base of the fifth metatarsal, calcaneus, or medial malleolus Her strength intact with regards to dorsiflexion, plantarflexion, inversion and eversion. Left knee: No obvious erythema, ecchymosis, soft tissue lesions or effusion There is minimal tenderness with palpation over the anterior aspect of the knee , more specifically the lateral patellar facet No tenderness along the medial lateral joint line with palpation, her valgus and varus stress tests are stable Yusef reproduces no significant instability She is able to extend and flex the knee with minimal difficulty Logroll maneuver the hip reproduces no pain Her sensation to light touch throughout the lower extremities intact, her dorsal pedis pulses 2+ Results - Labs Labs: Abnormal Lab Results - Last 24 Hours (Table) 10/10/17 10/10/17 10/11/17 Range/Units 21:53 21:53 10:48 APTT 21.9 L (22.0-30.0) sec BUN 20 H (7-17) mg/dL Glucose 100 H (74-99) mg/dL Total Protein 6.1 L (6.3-8.2) g/dL H & H 10/10/17 10/11/17 Range/Units 21:53 10:48 Hgb 14.5 13.9 (11.4-16.0) gm/dL Hct 43.5 40.5 (34.0-46.0) % Coagulation 10/10/17 Range/Units 21:53 INR 1.0 (<1.2) Result Diagrams: 10/11/17 10:48 10/11/17 10:48 - Diagnostic results Knee x-ray: report reviewed, image reviewed (No acute fractures or dislocations present, no other osseous abnormality is visualized) Ankle/Foot x-ray: report reviewed, image reviewed (No acute fractures or dislocations visualized, no other osseous abnormalities) Assessment and Plan Assessment: 1. Left lateral ankle sprain 2. Left knee contusion 3. Syncopal episode Plan: Discussed with the patient treatment options for both the left knee and ankle sprain and left knee contusion. I recommend icing, elevating and use of an anti -inflammatory for both. I advised her to continue with basic ambulation, avoiding strenuous use over the next week or so I recommended a good supportive shoe with regards to the ankle, she may also utilize an Elmer wrap or [id number] brace I recommended follow-up in the outpatient setting in the next 2-3 weeks for reevaluation, R office information will be placed in the chart We'll be available for any further recommendations, no orthopedic surgical intervention needed at this time Time with Patient: Less than 30
[2017-10-11] MEDS: traMADol 50 MG TAB PO PRN ×2 (11:40→17:52)
[2017-10-11 11:46] LABS: Creatine Kinase MB 0.4 ng/mL (0.0-2.4); Troponin I <0.012 ng/mL (0.000-0.034)
[2017-10-11] MEDS: IBUPROFEN 600 MG TAB PO PRN ×2 (12:22→20:25)
--- NOTE | 2017-10-11 15:08 | P.HPIM ---
History of Present Illness H&P Date: 10/11/17 Chief Complaint: Syncope 46-year-old female who presented to the emergency room after she had a syncopal episode at home. Patient reports that she had an argument with one of her children. Apparently the patient then walked away into another room where she passed out. She was found by her nephew who reported that she was not responsive initially. After about 1 minute the patient began to come around but her speech appeared delayed. EMS was called and the patient was transferred to the hospital for further evaluation. The patient denies chest pain or pressure. Denies shortness of breath or cough. Denies fever or chills. She denies lightheadedness or dizziness prior to her fall. The patient did complain of left knee and left ankle pain in the emergency room. Left ankle x-ray was completed which was negative for fracture or dislocation. X-ray of left knee was completed which was negative for fracture or dislocation. CT brain: Negative for acute process CT cervical spine: Negative for acute process The patient has a history of hypertension and migraines. She is a surgical history of gastric sleeve and uterine ablation. She is a former cigarette smoker. The patient states she was on medication for hypertension at one time but is unable to recall the name of the medication and does not remember why she stopped taking it. The patient's blood pressure was significantly elevated in the emergency room with a reading of 217/118. She received IV Apresoline with noted improvement in her blood pressure. Orthostatic blood pressures performed this morning reveals a blood pressure of 138/78 sitting, 112/85 standing, and 119/66 supine. Laboratory data: WBC 7.5. Hemoglobin 14.5. Platelet count 197. Sodium 140. Potassium 4.4. BUN 20. Creatinine 0.60. Troponin: Negative 3 Urinalysis was unremarkable Toxicology screen was negative. Serum alcohol less than 10 The patient was admitted to the hospital under the care of Dr. Amador. Review of Systems GENERAL: Patient denies fever. Denies chills. EYES: Denies blurred vision. Denies vision changes. Denies eye pain. EARS, NOSE, MOUTH, & THROAT: Denies headache. Denies sore throat. Denies ear pain. RESPIRATORY: Denies cough. Denies shortness of breath. Denies sputum production. Denies hemoptysis. CARDIOVASCULAR: Denies chest pain or pressure. Denies palpitations. Denies arrhythmias. GASTROINTESTINAL: Denies abdominal pain. Denies diarrhea. Denies constipation. Denies nausea. Denies vomiting. Denies heartburn. Denies blood in the stool. GENITOURINARY: Denies urinary frequency. Denies burning. Denies dysuria. Denies cloudy urine. Denies blood in the urine. MUSCULOSKELETAL: Positive for left knee and left ankle pain. INTEGUMENTARY: Denies pruitis. Denies rash. PSYCHIATRIC: Denies suicidal or homicial ideations. ENDOCRINE: Denies weight change. Denies polydipsia. Denies polyuria. HEMATOLOGIC: Denies bleeding disorders. Past Medical History Past Medical History: Hypertension Additional Past Medical History / Comment(s): Migraines History of Any Multi-Drug Resistant Organisms: None Reported Past Surgical History: Uterine Ablation Additional Past Surgical History / Comment(s): gastric sleeve Past Psychological History: No Psychological Hx Reported Smoking Status: Former smoker Past Alcohol Use History: Rare Past Drug Use History: None Reported - Past Family History Mother Family Medical History: Chest Pain / Angina, Congestive Heart Failure (CHF), COPD, Diabetes Mellitus, Hypertension Father Family Medical History: Congestive Heart Failure (CHF), COPD, Coronary Artery Disease (CAD), Diabetes Mellitus, Hypertension, Renal Disease Sister(s) Family Medical History: No Reported History Brother(s) Family Medical History: No Reported History Son(s) Family Medical History: No Reported History Medications and Allergies Home Medications Medication Instructions Recorded Confirmed Type No Known Home Medications [No 10/10/17 10/10/17 History Known Home Medications] Allergies Allergy/AdvReac Type Severity Reaction Status Date / Time codeine Allergy Swelling Verified 10/10/17 21:55 Penicillins Allergy Swelling Verified 10/10/17 21:55 aspirin AdvReac Swelling Verified 10/10/17 21:55 Physical Exam Vitals: Vital Signs Temp Pulse Pulse Pulse Pulse Resp BP 10/11/17 11:32 67 16 10/11/17 08:40 97.9 F 10/11/17 08:30 72 90 64 16 10/11/17 04:00 97.0 F L 77 77 18 10/11/17 02:17 74 93 18 10/11/17 01:54 97.6 F 68 18 10/11/17 01:03 97.9 F 82 18 135/70 06/04/18 23:44 78 18 147/87 10/10/17 22:20 66 18 174/99 10/10/17 21:55 68 18 182/105 10/10/17 21:19 97.8 F 68 18 217/118 BP BP BP Pulse Ox 10/11/17 11:32 115/72 97 10/11/17 08:40 10/11/17 08:30 138/78 112/85 119/66 95 10/11/17 04:00 117/62 95 10/11/17 02:17 161/94 133/90 96 10/11/17 01:54 161/94 133/90 147/76 95 10/11/17 01:03 96 10/10/17 23:44 98 10/10/17 22:20 95 10/10/17 21:55 95 10/10/17 21:19 97 Intake and Output 10/10/17 10/11/17 10/11/17 22:59 06:59 14:59 Intake Total 240 Balance 240 Intake: Oral 240 Other: Voiding Method Toilet Weight 83.915 kg 96 kg GENERAL: This is a 46-year-old female in no apparent distress at the time of examination. Pleasant and cooperative. HEENT: Head is atraumatic, normocephalic. Pupils are equal, round, and reactive to light. Sclerae anicteric. Conjunctivae are clear. Mucus membranes of the mouth are moist. Neck is supple. RESPIRATORY: Clear to ausculation. No wheezes, rales, or rhonchi. No use of accessory muscles. Patient maintaining oxygen saturation greater than 92%. No chest wall tenderness is noted on palpation or with deep breathing. CARDIOVASCULAR: Regular rate and rhythm. S1 and S2 noted. No systolic or diastolic murmur auscultated. No JVD noted. No S3 or S4 noted. GASTROINTESTINAL: No distention noted. Abdomen soft and round. Normal active bowel sounds auscultated x 4 quadrants. No pain or tenderness noted upon palpation. INTEGUMENTARY: No cyanosis. No jaundice. No rashes noted. No cellulitis noted. EXTREMITIES: Mild swelling to left knee and left ankle. Tenderness upon palpation. 2+ peripheral pulses. No calf tenderness noted. NEUROLOGIC: Cranial nerves II-XII intact. PSYCHIATRIC: Awake, alert, and oriented X 3. Appropriate affect. Intact judgement and insight. Results CBC & Chem 7: 10/11/17 10:48 10/11/17 10:48 Labs: Abnormal Lab Results - Last 24 Hours (Table) 10/10/17 10/10/17 10/11/17 Range/Units 21:53 21:53 10:48 APTT 21.9 L (22.0-30.0) sec BUN 20 H (7-17) mg/dL Glucose 100 H (74-99) mg/dL Total Protein 6.1 L (6.3-8.2) g/dL Thrombosis Risk Factor Assmnt - Choose All That Apply Any of the Below Risk Factors Present?: Yes Each Factor Represents 1 point: Age 41-60 years, Obesity (BMI >25) Thrombosis Risk Factor Assessment Total Risk Factor Score: 2 Thrombosis Risk Factor Assessment Level: Low Risk Assessment and Plan Plan: ASSESSMENT: Syncope with loss of consciousness, etiology unclear Hypertensive urgency, BP 217/118 in ER, improved History of hypertension Left lateral ankle sprain and left knee contusion, s/p syncopal episode PLAN: Consult cardiology to evaluate syncope Consult orthopedics secondary to left knee and ankle pain Pain control. Elevate left lower extremity. Echocardiogram ordered. Await results Home meds as appropriate Monitor labs GI prophylaxis: Protonix 40 mg PO Daily DVT prophylaxis: Lovenox 40 mg subcu daily Monitor vital signs and address as appropriate Discharge planning: Patient to return home when stable Further recommendations pending patient's course Nurse practitioner note has been reviewed by physician. Signing provider agrees with the documented findings, assessment, and plan of care.
--- NOTE | 2017-10-11 15:44 | P.CRDCN ---
History of Present Illness History of present illness: Mrs. Noel is a pleasant 46-year-old female past medical history significant for hypertension and migraine headaches. She states she was diagnosed with hypertension at one time but no longer takes any medications. She denies history of coronary artery disease, dyslipidemia or diabetes mellitus. 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 We've been asked to see her in consultation for symptoms of syncope. She states she had an argument with her son and walked into another room where she became very dizzy and then since that she passed out. Her nephew witnessed the event and says she was initially unresponsive for approximately 1 minute. When she came to she had some mild speech abnormalities and she said she had tingling in bilateral hands. She denies symptoms of chest pain or pressure, shortness of breath, palpitations, nausea, vomiting or diaphoresis. She has had no further episodes of syncope since arriving at the hospital. Telemetry tracings have been unremarkable and reveal sinus mechanism. When she arrived at the hospital her blood pressure was 217/118, 182/105. She received IV hydralazine and her blood pressure has been controlled since. EKG reveals sinus mechanism with no acute ST or T-wave abnormalities. Laboratory data reviewed, hemoglobin 13.9, platelets 201, sodium 140, potassium 4.8, creatinine 0.6, cardiac enzymes negative 3. She takes no daily medications. Review of Systems At the time of my exam: CONSTITUTIONAL: Denies fever. Denies chills. EYES: Denies blurred vision. Denies vision changes. Denies eye pain. EARS, NOSE, MOUTH & THROAT: Denies headache. Denies sore throat. Denies ear pain. CARDIOVASCULAR: Denies chest pain. Denies shortness of breath. Denies orthopnea. Denies PND. Denies palpitations. RESPIRATORY: Denies cough. GASTROINTESTINAL: Denies abdominal pain. Denies diarrhea. Denies constipation. Denies nausea. Denies vomiting. MUSCULOSKELETAL: Denies myalgias. INTEGUMENTARY: Denies pruitis. Denies rash. NEUROLOGIC: Denies numbness. Denies tingling. Denies weakness. PSYCHIATRIC: Denies anxiety. Denies depression. ENDOCRINE: Denies fatigue. Denies weight change. Denies polydipsia. Denies polyurina. GENITOURINARY: Denies burning, hematuria or urgency with micturation. HEMATOLOGIC: Denies history of anemia. Denies bleeding. Past Medical History Past Medical History: Hypertension Additional Past Medical History / Comment(s): Migraines History of Any Multi-Drug Resistant Organisms: None Reported Past Surgical History: Uterine Ablation Additional Past Surgical History / Comment(s): gastric sleeve Past Psychological History: No Psychological Hx Reported Smoking Status: Former smoker Past Alcohol Use History: Rare Past Drug Use History: None Reported - Past Family History Mother Family Medical History: Chest Pain / Angina, Congestive Heart Failure (CHF), COPD, Diabetes Mellitus, Hypertension Father Family Medical History: Congestive Heart Failure (CHF), COPD, Coronary Artery Disease (CAD), Diabetes Mellitus, Hypertension, Renal Disease Sister(s) Family Medical History: No Reported History Brother(s) Family Medical History: No Reported History Son(s) Family Medical History: No Reported History Medications and Allergies Home Medications Medication Instructions Recorded Confirmed Type No Known Home Medications [No 10/10/17 10/10/17 History Known Home Medications] Allergies Allergy/AdvReac Type Severity Reaction Status Date / Time codeine Allergy Swelling Verified 10/10/17 21:55 Penicillins Allergy Swelling Verified 10/10/17 21:55 aspirin AdvReac Swelling Verified 10/10/17 21:55 Physical Exam Vitals: Vital Signs Temp Pulse Pulse Pulse Pulse Resp BP 10/11/17 11:32 67 16 10/11/17 11:30 16 10/11/17 08:40 97.9 F 10/11/17 08:30 72 90 64 16 10/11/17 04:00 97.0 F L 77 77 18 10/11/17 02:17 74 93 18 10/11/17 01:54 97.6 F 68 18 10/11/17 01:03 97.9 F 82 18 135/70 10/10/17 23:44 78 18 147/87 10/10/17 22:20 66 18 174/99 10/10/17 21:55 68 18 182/105 10/10/17 21:19 97.8 F 68 18 217/118 BP BP BP Pulse Ox 10/11/17 11:32 115/72 97 10/11/17 11:30 10/11/17 08:40 10/11/17 08:30 138/78 112/85 119/66 95 10/11/17 04:00 117/62 95 10/11/17 02:17 161/94 133/90 96 10/11/17 01:54 161/94 133/90 147/76 95 10/11/17 01:03 96 10/10/17 23:44 98 10/10/17 22:20 95 10/10/17 21:55 95 10/10/17 21:19 97 Intake and Output 10/11/17 10/11/17 10/11/17 06:59 14:59 22:59 Intake Total 600 Balance 600 Intake: Oral 600 Other: Voiding Method Toilet Toilet Weight 96 kg Blood pressure 115/72 heart rate 67 afebrile maintaining oxygen saturation on room air GENERAL: This is a 46-year-old female in no apparent distress at the time of my examination. HEENT: Head is atraumatic, normocephalic. Pupils are equal, round. Sclerae anicteric. Conjunctivae are clear. Mucous membranes of the mouth are moist. Neck is supple. There is no jugular venous distention. No carotid bruit is heard. LUNGS: Clear to auscultation no wheezes, rales or rhonchi. No chest wall tenderness is noted on palpation or with deep breathing. HEART: Regular rate and rhythm without murmurs, rubs or gallops. S1 and S2 heard. ABDOMEN: Soft, nontender. Bowel sounds are heard. No organomegaly noted. EXTREMITIES: No evidence of peripheral edema and no calf tenderness noted. VASCULAR: Radial and dorsalis pedis pulses palpated, no evidence of clubbing. NEUROLOGIC: Patient is awake, alert and oriented x3. Results 10/11/17 10:48 10/11/17 10:48 Cardiac Enzymes 10/10/17 10/10/17 10/11/17 Range/Units 21:53 21:53 05:33 AST 20 (14-36) U/L CK-MB (CK-2) 0.6 0.4 (0.0-2.4) ng/mL Troponin I <0.012 <0.012 (0.000-0.034) ng/mL 10/11/17 10/11/17 Range/Units 10:48 10:48 AST 17 (14-36) U/L CK-MB (CK-2) 0.4 (0.0-2.4) ng/mL Troponin I <0.012 (0.000-0.034) ng/mL Coagulation 10/10/17 Range/Units 21:53 PT 9.9 (9.0-12.0) sec APTT 21.9 L (22.0-30.0) sec CBC 10/10/17 10/11/17 Range/Units 21:53 10:48 WBC 7.5 6.3 (3.8-10.6) k/uL RBC 4.96 4.58 (3.80-5.40) m/uL Hgb 14.5 13.9 (11.4-16.0) gm/dL Hct 43.5 40.5 (34.0-46.0) % Plt Count 197 201 (150-450) k/uL Comprehensive Metabolic Panel 10/10/17 10/11/17 Range/Units 21:53 10:48 Sodium 140 140 (137-145) mmol/L Potassium 4.4 4.8 (3.5-5.1) mmol/L Chloride 104 104 (98-107) mmol/L Carbon Dioxide 24 27 (22-30) mmol/L BUN 20 H 14 (7-17) mg/dL Creatinine 0.60 0.61 (0.52-1.04) mg/dL Glucose 97 100 H (74-99) mg/dL Calcium 9.4 9.2 (8.4-10.2) mg/dL AST 20 17 (14-36) U/L ALT 27 27 (9-52) U/L Alkaline Phosphatase 67 66 (38-126) U/L Total Protein 6.7 6.1 L (6.3-8.2) g/dL Albumin 4.2 3.7 (3.5-5.0) g/dL Current Medications Generic Name Dose Route Start Last Admin Trade Name Freq PRN Reason Stop Dose Admin Acetaminophen 650 mg 10/11/17 00:28 Tylenol Tab PO Q6HR PRN Mild Pain or Fever > 100.5 Enoxaparin Sodium 40 mg 10/11/17 09:00 10/11/17 08:41 Lovenox SQ 40 mg DAILY BRUNA Administration Hydralazine HCl 10 mg 10/11/17 00:31 Apresoline IVP Q4H PRN Hypertension Ibuprofen 600 mg 10/11/17 11:37 10/11/17 12:22 Motrin PO 600 mg TID PRN Administration MILD Pain Naloxone HCl 0.2 mg 10/11/17 00:28 Narcan IV Q2M PRN Opioid Reversal Ondansetron HCl 4 mg 10/11/17 00:28 Zofran IVP Q8HR PRN Nausea And Vomiting Pantoprazole Sodium 40 mg 10/12/17 07:30 Protonix PO AC-BRKFST BRUNA Tramadol HCl 50 mg 10/11/17 00:28 10/11/17 11:40 Ultram PO 50 mg Q6H PRN Administration Moderate Pain Intake and Output 10/11/17 10/11/17 10/11/17 06:59 14:59 22:59 Intake Total 600 Balance 600 Intake: Oral 600 Other: Voiding Method Toilet Toilet Weight 96 kg 10/11/17 10:48 10/11/17 10:48 Assessment and Plan Assessment: ASSESSMENT 1. Syncope 2. Hypertension, uncontrolled not on current medical therapy PLAN 2-D echocardiogram and Doppler study has been obtained and will be reviewed. Continue to monitor on telemetry for another 24 hours to assess for an acute arrhythmia. Discontinue when necessary antihypertensives to accurately assess blood pressure. Further recommendations to follow based upon clinical course. Nurse Practitioner note has been reviewed, I agree with a documented findings and plan of care. Patient was seen and examined.
[2017-10-11 23:08] VITALS: RESP 18
[2017-10-12] MEDS ORDERED: PANTOPRAZOLE 40 MG TABLET PO SCH (07:30)
[2017-10-12 08:28] VITALS: BP 117/70; PULSE 70; TEMP 97
[2017-10-12] MEDS: ENOXAPARIN 40 MG/0.4 ML SYRINGE SQ SCH (08:29)
[2017-10-12] MEDS: traMADol 50 MG TAB PO PRN (11:39)
--- NOTE | 2017-10-12 11:53 | P.PN ---
Subjective Mrs. Noel is a pleasant 46-year-old female past medical history significant for hypertension and migraine headaches. She states she was diagnosed with hypertension at one time but no longer takes any medications. She denies history of coronary artery disease, dyslipidemia or diabetes mellitus. 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 We've been asked to see her in consultation for symptoms of syncope. She states she had an argument with her son and walked into another room where she became very dizzy and then since that she passed out. Her nephew witnessed the event and says she was initially unresponsive for approximately 1 minute. When she came to she had some mild speech abnormalities and she said she had tingling in bilateral hands. She denies symptoms of chest pain or pressure, shortness of breath, palpitations, nausea, vomiting or diaphoresis. She has had no further episodes of syncope since arriving at the hospital. Telemetry tracings have been unremarkable and reveal sinus mechanism. When she arrived at the hospital her blood pressure was 217/118, 182/105. She received IV hydralazine and her blood pressure has been controlled since. EKG reveals sinus mechanism with no acute ST or T-wave abnormalities. Laboratory data reviewed, hemoglobin 13.9, platelets 201, sodium 140, potassium 4.8, creatinine 0.6, cardiac enzymes negative 3. She takes no daily medications. 10/12/2017 Mrs. Noel is seen and examined resting comfortably in bed. She has been up ambulating with no further symptoms of dizziness or syncope. Telemetry tracings have been unremarkable indicating sinus mechanism. Blood pressure 127/80 heart rate 60 afebrile. Objective - Vital Signs Vital signs: Vital Signs Temp 97.3 F L 10/12/17 04:00 Pulse 66 10/12/17 04:00 Resp 18 10/12/17 04:00 BP 127/80 10/12/17 04:00 Pulse Ox 96 10/12/17 04:00 Intake & Output 10/11/17 10/12/17 10/12/17 18:59 06:59 18:59 Intake Total 840 Balance 840 Weight 95.6 kg Intake: Oral 840 Other: Voiding Method Toilet Toilet # Voids 1 1 - Exam GENERAL: Well-appearing, well-nourished and in no acute distress. NECK: Supple without JVD or thyromegaly. LUNGS: Breath sounds clear to auscultation bilaterally. Respiration equal and unlabored. No wheezes, rales or rhonchi. HEART: Regular rate and rhythm without murmurs, rubs or gallops. S1 and S2 heard. EXTREMITIES: Normal range of motion, no edema. No clubbing or cyanosis. Peripheral pulses intact and strong. - Labs CBC & Chem 7: 10/11/17 10:48 10/11/17 10:48 Labs: Abnormal Lab Results - Last 24 Hours (Table) 10/11/17 Range/Units 10:48 Glucose 100 H (74-99) mg/dL Total Protein 6.1 L (6.3-8.2) g/dL Assessment and Plan Assessment: ASSESSMENT 1. Syncope 2. Hypertension, uncontrolled not on current medical therapy PLAN No cardiac etiology found for syncope. Stable from a cardiac perspective. Follow up with primary care physican upon discharge. Nurse Practitioner note has been reviewed, I agree with a documented findings and plan of care. Patient was seen and examined.
--- NOTE | 2017-10-12 12:30 | P.DS ---
Providers Date of admission: 10/11/17 00:29 Expected date of discharge: 10/12/17 Attending physician: Neymar Cleveland Consults: 10/11/17 09:26 Consult Physician Routine Consulting Provider: Easton Emerson Consult Reason/Comments: syncope Do you want consulting provider notified?: Yes 10/11/17 09:27 Consult Physician Routine Consulting Provider: Azar Cain Consult Reason/Comments: left knee pain Do you want consulting provider notified?: Yes Primary care physician: [facility] Course: 46-year-old female who presented to the emergency room after she had a syncopal episode at home. Patient reports that she had an argument with one of her children. Apparently the patient then walked away into another room where she passed out. She was found by her nephew who reported that she was not responsive initially. After about 1 minute the patient began to come around but her speech appeared delayed. EMS was called and the patient was transferred to the hospital for further evaluation. The patient denies chest pain or pressure. Denies shortness of breath or cough. Denies fever or chills. She denies lightheadedness or dizziness prior to her fall. The patient did complain of left knee and left ankle pain in the emergency room. Left ankle x-ray was completed which was negative for fracture or dislocation. X-ray of left knee was completed which was negative for fracture or dislocation. CT brain: Negative for acute process CT cervical spine: Negative for acute process The patient has a history of hypertension and migraines. She is a surgical history of gastric sleeve and uterine ablation. She is a former cigarette smoker. The patient states she was on medication for hypertension at one time but is unable to recall the name of the medication and does not remember why she stopped taking it. The patient's blood pressure was significantly elevated in the emergency room with a reading of 217/118. She received IV Apresoline with noted improvement in her blood pressure. Orthostatic blood pressures performed this morning reveals a blood pressure of 138/78 sitting, 112/85 standing, and 119/66 supine. Laboratory data: WBC 7.5. Hemoglobin 14.5. Platelet count 197. Sodium 140. Potassium 4.4. BUN 20. Creatinine 0.60. Troponin: Negative 3 Urinalysis was unremarkable Toxicology screen was negative. Serum alcohol less than 10 The patient was admitted to the hospital under the care of Dr. Amador. The patient was evaluated by cardiology. They recommended 24 hours of telemetry monitoring. Telemetry tracings have been unremarkable. She remains in sinus rhythm. Her blood pressure has remained stable in the 120s and 130s. She was cleared for discharge from a cardiology standpoint. She is to follow up with Dr. Emerson in 2 weeks. 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 No acute intervention per orthopedics. The patient is to follow up on an outpatient basis. The patient was deemed stable for discharge per Dr. Amador. She is to follow up on an outpatient basis with her primary care physician and all consulting providers. DISCHARGE DIAGNOSIS: Syncope with loss of consciousness, etiology unclear Hypertensive urgency, BP 217/118 in ER, improved History of hypertension Left lateral ankle sprain and left knee contusion, s/p syncopal episode Nurse practitioner note has been reviewed by physician. Signing provider agrees with the documented findings, assessment, and plan of care. Patient Condition at Discharge: Stable Plan - Discharge Summary New Discharge Prescriptions: No Action No Known Home Medications [No Known Home Medications] Discharge Medication List No Known Home Medications [No Known Home Medications] 10/10/17 [History] Follow up Appointment(s)/Referral(s): [place] Amador MD [Primary Care Provider] - 10/18/17 1:00 pm (Tuesday) Devang Iyer MD [STAFF PHYSICIAN] - 2 Weeks
--- NOTE | 2017-10-12 14:11 | ECHOF ---
Referral Reason:syncope MEASUREMENTS -------- HEIGHT: 157.5 cm WEIGHT: 95.7 kg BP: 117/62 RVIDd: 2.6 cm (< 3.3) IVSd: 1.1 cm (0.6 - 1.1) LVIDd: 3.9 cm (3.9 - 5.3) LVPWd: 1.2 cm (0.6 - 1.1) IVSs: 1.6 cm LVIDs: 2.6 cm LVPWs: 1.7 cm LAESV Index (A-L): 15.90 ml/m Ao Diam: 3.2 cm (2.0 - 3.7) AV Cusp: 1.5 cm (1.5 - 2.6) LA Diam: 3.2 cm (2.7 - 3.8) EPSS: 0.8 cm MV E Jonathan: 0.80 m/s MV DecT: 160 ms MV A Jonathan: 0.52 m/s MV E/A Ratio: 1.55 AV maxP.10 mmHg AV meanP.74 mmHg RAP: 5.00 mmHg RVSP: 16.49 mmHg MV EF SLOPE: 88.37 mm/s (70 - 150) MV EXCURSION: 1.64 cm (> 18.000) FINDINGS -------- Sinus rhythm. This was a technically adequate study. The left ventricular size is normal. There is borderline concentric left ventricular hypertrophy. Overall left ventricular systolic function is normal with, an EF between 55 - 60 %. The right ventricle is normal in size and function. Normal LA size by volume 22+/-6 ml/m2. The right atrium is normal in size. The aortic valve is trileaflet, and appears structurally normal. No aortic stenosis or regurgitation. The mitral valve is normal. There is trace to mild mitral regurgitation. Trace tricuspid regurgitation present. Right ventricular systolic pressure is normal at < 35 mmHg. There is no evidence of pulmonary hypertension. Trace/mild (physiologic) pulmonic regurgitation. The aortic root size is normal. Normal inferior vena cava with normal inspiratory collapse consistent with estimated right atrial pre ssure of 5 mmHg. There is no pericardial effusion. CONCLUSIONS -------- 1. Sinus rhythm. 2. This was a technically adequate study. 3. The left ventricular size is normal. 4. There is borderline concentric left ventricular hypertrophy. 5. Overall left ventricular systolic function is normal with, an EF between 55 - 60 %. 6. Normal LA size by volume 22+/-6 ml/m2. 7. The aortic valve is trileaflet, and appears structurally normal. No aortic stenosis or regurgitati on. 8. There is trace to mild mitral regurgitation. 9. Trace tricuspid regurgitation present. 10. Right ventricular systolic pressure is normal at < 35 mmHg. 11. Trace/mild (physiologic) pulmonic regurgitation. 12. The aortic root size is normal. 13. There is no pericardial effusion. REPAIRER KILN CAR: Kj Johnson RDCS
== END 2017-10-12 14:25 | disposition home or self-care (01) ==
LOC: EC 21:14 → 6SEL 10-11 00:29 → 3OBS 10-12 08:35
PROVIDERS: ADMIT Family Medicine; ATTEND Family Medicine
DX: R55 Syncope and collapse (principal); I16.0 Hypertensive urgency; G43.909 Migraine, unspecified, not intractable, without status migrainosus; S93.402A Sprain of unspecified ligament of left ankle, initial encounter; S80.02XA Contusion of left knee, initial encounter; Z98.84 Bariatric surgery status; Z87.891 Personal history of nicotine dependence; Z83.3 Family history of diabetes mellitus; Z82.5 Family history of asthma and other chronic lower respiratory diseases; Z82.49 Family history of ischemic heart disease and other diseases of the circulatory system; Z88.6 Allergy status to analgesic agent; Z88.5 Allergy status to narcotic agent; Z88.0 Allergy status to penicillin
CPT/HCPCS: 96375 ×2; 96361 ×3; 96372 ×2; 96374; 99285; 36415; 93005; 93306; 85379; 80053 ×2; 82550 ×2; 82553 ×2; 83735; 84484 ×2; 85025 ×2; 85610; 85730; 81003; 80306; 80320; 73562; 73610; 72125; 70450; G0378 ×3; J0360; J1650 ×2; C9113

== ENCOUNTER → 2018-01-04 | Outpatient (CLI) | payer OTHER ==
--- NOTE | 2018-01-04 10:30 | XR ---
EXAMINATION TYPE: XR thoracic spine complete DATE OF EXAM: 01/04/2018 COMPARISON: None HISTORY: Pain between shoulder blades x6 months TECHNIQUE: Three-view thoracic spine FINDINGS: There is a scoliosis present with convexity to the right. There are 12 thoracic type verteb ral bodies. The pedicles are intact. Some mid to upper thoracic spine disc space narrowing may be pre sent anteriorly. Mild spondylosis is also present. IMPRESSION: 1. Mild degenerative disc change mid thoracic spine.
[2018-01-04 10:44] LABS: Basophils % (A) 0 %; Eosinophils # (A) 0.1 k/uL (0-0.7); Eosinophils % (A) 1 %; HCT 44.5 % (34.0-46.0); HGB 14.3 gm/dL (11.4-16.0); Lymphocytes # (A) 2.9 k/uL (1.0-4.8); Lymphocytes % (A) 38 %; MCH 29.3 pg (25.0-35.0); MCHC 32.1 g/dL (31.0-37.0); MCV 91.3 fL (80.0-100.0); Mean Platelet Volume 6.9; Monocytes # (A) 0.4 k/uL (0-1.0); Monocytes % (A) 5 %; Neutrophils % (A) 53 %; Platelet Count 239 k/uL (150-450); RBC 4.88 m/uL (3.80-5.40); RDW 12.9 % (11.5-15.5); WBC 7.4 k/uL (3.8-10.6)
[2018-01-04 10:52] LABS: ALT 26 U/L (9-52); AST 21 U/L (14-36); Albumin 4.3 g/dL (3.5-5.0); Alkaline Phosphatase 72 U/L (38-126); Anion Gap 8 mmol/L; Blood Urea Nitrogen 16 mg/dL (7-17); Calcium 9.4 mg/dL (8.4-10.2); Carbon Dioxide 28 mmol/L (22-30); Chloride 103 mmol/L (98-107); Cholesterol 228 mg/dL (<200); Glucose 99 mg/dL (74-99); HDL Cholesterol 56 mg/dL (40-60); LDL Cholesterol,Calculated 147 mg/dL (0-99); Potassium 4.8 mmol/L (3.5-5.1); Sodium 139 mmol/L (137-145); Total Bilirubin 0.5 mg/dL (0.2-1.3); Total Protein 7.4 g/dL (6.3-8.2); Triglycerides 123 mg/dL (<150)
== END | disposition home or self-care (01) ==
LOC: LABWHC1 09:40
PROVIDERS: ATTEND Family Medicine
DX: Z00.00 Encounter for general adult medical examination without abnormal findings (principal); M47.814 Spondylosis without myelopathy or radiculopathy, thoracic region; I10 Essential (primary) hypertension; Z79.899 Other long term (current) drug therapy
CPT/HCPCS: 36415; 72072; 80053; 80061; 84439; 84443; 85025

== ENCOUNTER → 2018-02-14 | Outpatient (CLI) | payer OTHER ==
--- NOTE | 2018-02-14 12:28 | XR ---
EXAMINATION TYPE: XR cervical spine comp DATE OF EXAM: 02/14/2018 TECHNIQUE: Frontal, lateral, oblique, swimmers, and open mouth view of the cervical spine are obtaine d. HISTORY: M54.2 Cervicalgia neck pain. COMPARISON: CT cervical spine June 15, 2017. FINDINGS: The cervical spine is visualized in its entirety from C1 thru the top of T1 level, it is s table and straightened in alignment without evidence of acute fracture or dislocation. The pre-verte bral soft tissue appears within normal limits. The C1-C2 articulation is within normal limits on the open mouth view. Vertebral body heights and disc space heights are fairly well-maintained. Mild ante rior spurring C5 vertebra is redemonstrated. The oblique images are within normal limits. Some mild calcified plaque right carotid bulb is again seen. IMPRESSION: Straightening of cervical spine with mild mid to lower anterior spurring.
== END ==
LOC: RADXRMAIN 12:07
PROVIDERS: ATTEND Family Medicine
DX: M46.02 Spinal enthesopathy, cervical region (principal)
CPT/HCPCS: 72050

== ENCOUNTER 2018-07-07 01:03 | Emergency (ER) | payer BC, OTHER ==
--- NOTE | 2018-07-07 01:11 | ED ---
Lower Extremity Injury HPI - General Stated Complaint: L Leg Swelling/Pain Time Seen by Provider: 07/07/18 01:09 Source: RN notes reviewed, old records reviewed - History of Present Illness Initial Comments: This is a 47-year-old female the ER for evaluation. Patient resents today for multiple complaints regarding swelling and pain. States he has a long history of cramping and muscle cramps was usually are improved with hydration. Patient is noted swelling to the back of her leg the back of her neck. She has had a history of about 4 month but states is worse and left-sided titer. As well as her left leg left thigh have increased tightness and increased swelling. Patient denies shortness of breath or abdominal pain. She has been trying to go to current diuretics with no help -: days(s) Injury: Leg: Left Place: home Severity: moderate Severity scale (1-10): 5 Improves With: nothing Worsens With: weight bearing Context: other (none) Other Symptoms: other (none) Associated Symptoms: swelling - Related Data Previous Rx's Medication Instructions Recorded Acetaminophen Tab [Tylenol] 650 mg PO Q6HR PRN tab 10/12/17 Ibuprofen [Motrin] 600 mg PO TID PRN tab 10/12/17 Allergies Allergy/AdvReac Type Severity Reaction Status Date / Time codeine Allergy Swelling Verified 07/07/18 01:17 Penicillins Allergy Swelling Verified 07/07/18 01:17 aspirin AdvReac Swelling Verified 07/07/18 01:17 Review of Systems ROS Statement: Those systems with pertinent positive or pertinent negative responses have been documented in the HPI. ROS Other: All systems not noted in ROS Statement are negative. Past Medical History Past Medical History: Hypertension Additional Past Medical History / Comment(s): Migraines History of Any Multi-Drug Resistant Organisms: None Reported Past Surgical History: Uterine Ablation Additional Past Surgical History / Comment(s): gastric sleeve Past Psychological History: No Psychological Hx Reported Smoking Status: Former smoker Past Alcohol Use History: Rare Past Drug Use History: None Reported - Past Family History Mother Family Medical History: Chest Pain / Angina, Congestive Heart Failure (CHF), COPD, Diabetes Mellitus, Hypertension Father Family Medical History: Congestive Heart Failure (CHF), COPD, Coronary Artery Disease (CAD), Diabetes Mellitus, Hypertension, Renal Disease Sister(s) Family Medical History: No Reported History Brother(s) Family Medical History: No Reported History Son(s) Family Medical History: No Reported History General Exam General appearance: alert, in no apparent distress Head exam: Present: atraumatic, normocephalic, normal inspection Eye exam: Present: normal appearance, PERRL, EOMI. Absent: scleral icterus, conjunctival injection, periorbital swelling ENT exam: Present: normal exam, mucous membranes moist Neck exam: Present: normal inspection. Absent: tenderness, meningismus, lymphadenopathy Respiratory exam: Present: normal lung sounds bilaterally. Absent: respiratory distress, wheezes, rales, rhonchi, stridor Cardiovascular Exam: Present: regular rate, normal rhythm, normal heart sounds. Absent: systolic murmur, diastolic murmur, rubs, gallop, clicks GI/Abdominal exam: Present: soft, normal bowel sounds. Absent: distended, tenderness, guarding, rebound, rigid Extremities exam: Present: normal inspection, full ROM, normal capillary refill. Absent: tenderness, pedal edema, joint swelling, calf tenderness Back exam: Present: normal inspection Neurological exam: Present: alert, oriented X3, CN II-XII intact Psychiatric exam: Present: normal affect, normal mood Skin exam: Present: warm, dry, intact, normal color. Absent: rash Course Vital Signs 07/07/18 07/07/18 01:13 03:00 Temperature 97.8 F Pulse Rate 85 83 Respiratory 18 18 Rate Blood Pressure 146/97 144/76 O2 Sat by Pulse 97 98 Oximetry - Reevaluation(s) Reevaluation #1: 07/07/18 01:40 Medical record is reviewed and noncontributory Medical Decision Making - Medical Decision Making 47 female the ER with atypical swelling of left lower extremity as well as back. Labwork is normal she'll left lower extremity is negative for acute disease and patient can be discharged home - Lab Data Result diagrams: 07/07/18 02:03 07/07/18 02:03 Lab Results 07/07/18 07/07/18 07/07/18 Range/Units 02:03 02:03 02:03 WBC 7.3 (3.8-10.6) k/uL RBC 4.95 (3.80-5.40) m/uL Hgb 14.6 (11.4-16.0) gm/dL Hct 43.6 (34.0-46.0) % MCV 88.1 (80.0-100.0) fL MCH 29.5 (25.0-35.0) pg MCHC 33.5 (31.0-37.0) g/dL RDW 12.8 (11.5-15.5) % Plt Count 232 (150-450) k/uL Neutrophils % 59 % Lymphocytes % 31 % Monocytes % 7 % Eosinophils % 2 % Basophils % 0 % Neutrophils # 4.3 (1.3-7.7) k/uL Lymphocytes # 2.3 (1.0-4.8) k/uL Monocytes # 0.5 (0-1.0) k/uL Eosinophils # 0.2 (0-0.7) k/uL Basophils # 0.0 (0-0.2) k/uL PT (9.0-12.0) sec INR (<1.2) APTT (22.0-30.0) sec Sodium 139 (137-145) mmol/L Potassium 4.3 (3.5-5.1) mmol/L Chloride 108 H (98-107) mmol/L Carbon Dioxide 27 (22-30) mmol/L Anion Gap 4 mmol/L BUN 17 (7-17) mg/dL Creatinine 0.68 (0.52-1.04) mg/dL Est GFR (CKD-EPI)AfAm >90 (>60 ml/min/1.73 sqM) Est GFR (CKD-EPI)NonAf >90 (>60 ml/min/1.73 sqM) Glucose 113 H (74-99) mg/dL Calcium 8.8 (8.4-10.2) mg/dL Phosphorus 4.1 (2.5-4.5) mg/dL Magnesium 2.1 (1.6-2.3) mg/dL Total Bilirubin 0.4 (0.2-1.3) mg/dL AST 20 (14-36) U/L ALT 27 (9-52) U/L Alkaline Phosphatase 69 (38-126) U/L Creatine Kinase 58 (30-135) U/L CK-MB (CK-2) 0.8 (0.0-2.4) ng/mL Total Protein 6.1 L (6.3-8.2) g/dL Albumin 3.7 (3.5-5.0) g/dL 07/07/18 Range/Units 02:03 WBC (3.8-10.6) k/uL RBC (3.80-5.40) m/uL Hgb (11.4-16.0) gm/dL Hct (34.0-46.0) % MCV (80.0-100.0) fL MCH (25.0-35.0) pg MCHC (31.0-37.0) g/dL RDW (11.5-15.5) % Plt Count (150-450) k/uL Neutrophils % % Lymphocytes % % Monocytes % % Eosinophils % % Basophils % % Neutrophils # (1.3-7.7) k/uL Lymphocytes # (1.0-4.8) k/uL Monocytes # (0-1.0) k/uL Eosinophils # (0-0.7) k/uL Basophils # (0-0.2) k/uL PT 9.4 (9.0-12.0) sec INR 0.8 (<1.2) APTT 22.4 (22.0-30.0) sec Sodium (137-145) mmol/L Potassium (3.5-5.1) mmol/L Chloride (98-107) mmol/L Carbon Dioxide (22-30) mmol/L Anion Gap mmol/L BUN (7-17) mg/dL Creatinine (0.52-1.04) mg/dL Est GFR (CKD-EPI)AfAm (>60 ml/min/1.73 sqM) Est GFR (CKD-EPI)NonAf (>60 ml/min/1.73 sqM) Glucose (74-99) mg/dL Calcium (8.4-10.2) mg/dL Phosphorus (2.5-4.5) mg/dL Magnesium (1.6-2.3) mg/dL Total Bilirubin (0.2-1.3) mg/dL AST (14-36) U/L ALT (9-52) U/L Alkaline Phosphatase (38-126) U/L Creatine Kinase (30-135) U/L CK-MB (CK-2) (0.0-2.4) ng/mL Total Protein (6.3-8.2) g/dL Albumin (3.5-5.0) g/dL - Radiology Data Radiology results: report reviewed (Ultrasound left lower extremity negative for acute disease), image reviewed Disposition Clinical Impression: Edema, Leg edema, left Disposition: HOME SELF-CARE Condition: Good Instructions (If sedation given, give patient instructions): Leg Edema (ED) Is patient prescribed a controlled substance at d/c from ED?: No Referrals: Chino Amador MD [Primary Care Provider] - 1-2 days
[2018-07-07 01:17] VITALS: RESP 18; TEMP 97.8
[2018-07-07] MEDS: FUROSEMIDE 10 MG/ML 4 ML VIAL IV STA (02:03)
[2018-07-07] MEDS: DEXAMETHASONE SOD PHOSPHATE 10 MG/ML 1 ML VIAL IV STA (02:04)
[2018-07-07 02:31] LABS: Basophils % (A) 0 %; Eosinophils # (A) 0.2 k/uL (0-0.7); Eosinophils % (A) 2 %; HCT 43.6 % (34.0-46.0); HGB 14.6 gm/dL (11.4-16.0); Lymphocytes # (A) 2.3 k/uL (1.0-4.8); Lymphocytes % (A) 31 %; MCH 29.5 pg (25.0-35.0); MCHC 33.5 g/dL (31.0-37.0); MCV 88.1 fL (80.0-100.0); Mean Platelet Volume 7.1; Monocytes # (A) 0.5 k/uL (0-1.0); Monocytes % (A) 7 %; Neutrophils # (A) 4.3 k/uL (1.3-7.7); Neutrophils % (A) 59 %; Platelet Count 232 k/uL (150-450); RBC 4.95 m/uL (3.80-5.40); RDW 12.8 % (11.5-15.5); WBC 7.3 k/uL (3.8-10.6)
[2018-07-07 02:32] LABS: ALT 27 U/L (9-52); AST 20 U/L (14-36); Albumin 3.7 g/dL (3.5-5.0); Alkaline Phosphatase 69 U/L (38-126); Anion Gap 4 mmol/L; Blood Urea Nitrogen 17 mg/dL (7-17); Calcium 8.8 mg/dL (8.4-10.2); Carbon Dioxide 27 mmol/L (22-30); Chloride 108 mmol/L (98-107); Creatine Kinase 58 U/L (30-135); Glucose 113 mg/dL (74-99); INR 0.8 (<1.2); Magnesium 2.1 mg/dL (1.6-2.3); Partial Thromboplastin Time 22.4 sec (22.0-30.0); Phosphorus 4.1 mg/dL (2.5-4.5); Potassium 4.3 mmol/L (3.5-5.1); Prothrombin Time 9.4 sec (9.0-12.0); Sodium 139 mmol/L (137-145); Total Bilirubin 0.4 mg/dL (0.2-1.3); Total Protein 6.1 g/dL (6.3-8.2)
--- NOTE | 2018-07-07 02:58 | US ---
EXAM: US Duplex Left Lower Extremity Veins CLINICAL HISTORY: ITS.REASON US Reason: Pain TECHNIQUE: Real-time duplex ultrasound scan of the left lower extremity veins integrating B-mode two-dimensional vascular structure, Doppler spectral analysis, color flow Doppler imaging and compression. COMPARISON: No relevant prior studies available. FINDINGS: Deep veins: Unremarkable. No DVT in the visualized common femoral, femoral, proximal deep femoral or popliteal veins. The veins demonstrate normal color flow, are normally compressible, with normal phasic flow and/or augmentation response. Superficial veins: Unremarkable. No thrombus in the visualized great saphenous vein. Soft tissues: No acute findings. No popliteal cyst. IMPRESSION: Normal left lower extremity duplex venous ultrasound.
[2018-07-07 03:22] VITALS: BP 144/76; PULSE 83
== END 2018-07-07 04:08 | disposition home or self-care (01) ==
LOC: EC 01:03
DX: R60.0 Localized edema (principal); R29.898 Other symptoms and signs involving the musculoskeletal system; Z87.891 Personal history of nicotine dependence; Z88.0 Allergy status to penicillin; Z88.5 Allergy status to narcotic agent; Z88.6 Allergy status to analgesic agent; Z82.49 Family history of ischemic heart disease and other diseases of the circulatory system
CPT/HCPCS: 36415; 80053; 82550; 82553; 83735; 84100; 85025; 85610; 85730; 93971; 99284; 96374; 96375; J1100; J1940

== ENCOUNTER → 2018-07-19 | Outpatient (CLI) | payer BC ==
--- NOTE | 2018-07-19 14:36 | US ---
EXAMINATION TYPE: US venous doppler duplex LE DATE OF EXAM: 07/19/2018 2:12 PM COMPARISON: NONE CLINICAL HISTORY: R22.41 swelling r limb, R22.42 swelling L limb. cramping in legs at night and swell ing LOWER EXTREMITY VENOUS INSUFFICIENCY SIDE PERFORMED: bilateral 1) Color flow is present and patency is documented in the following vessels. No DVT or SVT is noted . EIV Common Femoral Vein Deep Femoral Vein Femoral Vein Popliteal Vein Proximal Calf Veins Greater Saph Vein Upper Small Saph Vein 2) There is venous reflux noted at the following venous levels: NO REFLUX SEEN Some bilateral valves were able to close off completely while others would not after multiple attempt s. IMPRESSION: 1. No sonographic evidence of deep venous thrombosis within the bilateral lower extremities. 2. Slight bilateral valvular incompetency without venous reflux.
== END | disposition home or self-care (01) ==
LOC: RADUSWWP 13:25
PROVIDERS: ATTEND Family Medicine
DX: I38 Endocarditis, valve unspecified (principal); Z88.0 Allergy status to penicillin; Z88.5 Allergy status to narcotic agent; Z88.6 Allergy status to analgesic agent; I83.93 Asymptomatic varicose veins of bilateral lower extremities
CPT/HCPCS: 93970

== ENCOUNTER → 2018-08-09 | Outpatient (CLI) | payer BC ==
--- NOTE | 2018-08-09 11:17 | MM ---
Reason for exam: additional evaluation requested from prior study. Last mammogram was performed 1 year and 11 months ago. History: Patient had first child at age 29. Family history of breast cancer in mother at age 50 and breast cancer in aunt. Benign US biopsy breast VAD RT of the right breast, September 22, 2016. Took hormonal contraceptives for 1 year beginning at age 38. Physical Findings: Nurse did not find any significant physical abnormalities on exam. MG Diagnostic Mammo w CAD [facility] Bilateral CC and MLO view(s) were taken. Prior study comparison: September 22, 2016, right breast MG diagnostic mammo RT wo CAD. September 13, 2016, bilateral MG 3d diag mammo w/cad [place]. There are scattered fibroglandular densities. There is chronic nodularity bilaterally, stable. No significant new findings when compared with previous films. These results were verbally communicated with the patient and result sheet given to the patient on 08/09/18. ASSESSMENT: Benign, BI-RAD 2 RECOMMENDATION: Routine screening mammogram of both breasts in 1 year.
== END | disposition home or self-care (01) ==
LOC: RADMAMWWP 09:32
PROVIDERS: ATTEND Family Medicine
DX: R92.8 Other abnormal and inconclusive findings on diagnostic imaging of breast (principal)
CPT/HCPCS: 77066

== ENCOUNTER → 2020-08-22 | Outpatient (CLI) | payer BC, OTHER ==
--- NOTE | 2020-08-26 07:30 | MM ---
Reason for exam: screening (asymptomatic). Last mammogram was performed 2 years ago. History: Patient had first child at age 29. Family history of breast cancer in mother at age 50, breast cancer in aunt, and breast cancer in sister at age 32. Benign US biopsy breast VAD RT of the right breast, September 22, 2016. Took hormonal contraceptives for 1 year beginning at age 38. Physical Findings: A clinical breast exam by your physician is recommended on an annual basis and results should be correlated with mammographic findings. MG Screening Mammo w CAD Bilateral CC, MLO, and XCCL view(s) were taken. Prior study comparison: August 09, 2018, bilateral MG diagnostic mammo w CAD [facility]NA. September 13, 2016, bilateral MG 3d diag mammo w/cad [facility]. October 15, 2013, bilateral MG screening mammo w CAD. The breast tissue is almost entirely fat. Previous mammotome biopsy in the right breast. No significant changes when compared with prior studies. ASSESSMENT: Negative, BI-RAD 1 RECOMMENDATION: Routine screening mammogram of both breasts in 1 year.
== END | disposition home or self-care (01) ==
LOC: RADMAMWWP 11:54
PROVIDERS: ATTEND Family Medicine
DX: Z12.31 Encounter for screening mammogram for malignant neoplasm of breast (principal); Z80.3 Family history of malignant neoplasm of breast
CPT/HCPCS: 77067

== ENCOUNTER 2020-12-13 20:45 | Emergency (ER) | payer BC, OTHER ==
[2020-12-13 20:57] VITALS: RESP 18; TEMP 98.3
[2020-12-13] MEDS: MORPHINE SULFATE 4 MG/ML SYRINGE IM STA (21:52)
--- NOTE | 2020-12-13 22:06 | US ---
EXAMINATION TYPE: US venous doppler duplex LE DATE OF EXAM: 12/13/2020 9:49 PM COMPARISON: NONE CLINICAL HISTORY: Bilateral calf and thigh pain; leg swelling. pain SIDE PERFORMED: Bilateral TECHNIQUE: The lower extremity deep venous system is examined utilizing real time linear array sonog [place] with graded compression, doppler sonography and color-flow sonography. VESSELS IMAGED: Common Femoral Vein Deep Femoral Vein Greater Saphenous Vein * Femoral Vein Popliteal Vein Small Saphenous Vein * Proximal Calf Veins (* superficial vessels) Right Leg: Negative for DVT Left Leg: Negative for DVT IMPRESSION: No evidence of deep vein thrombosis in both legs.
--- NOTE | 2020-12-13 22:08 | ED ---
General Adult HPI - General Chief complaint: Extremity Problem,Nontraumatic Stated complaint: pain in both legs Time Seen by Provider: 12/13/20 20:59 Source: patient Mode of arrival: ambulatory - History of Present Illness Initial comments: 50 year-old female patient presents to the emergency department for evaluation of bilateral leg pain. States the pain started in her calves and is now shooting up the middle of her thighs. Does have lymphedema to the legs and has been getting them wrapped at her lymphedema specialist. States that the pain started this morning. She was really concerned about blood clot so she came in for evaluation. She denies any redness to the legs. Denies fever or chills. Denies increase in physical activity or any injury. Denies fever or chills. Denies history of blood clot. Patient denies any recent rash, cough, shortness of breath, chest pain, abdominal pain, nausea, vomiting, diarrhea, constipation, back pain, numbness, tingling, dizziness, weakness, hematuria, dysuria, urinary urgency, urinary frequency, headache, visual changes, or any other complaints. - Related Data Home Medications Medication Instructions Recorded Confirmed Atorvastatin [Lipitor] 20 mg PO HS 12/13/20 12/13/20 Sodium Chloride 5% Ophth Soln 2 drops BOTH EYES HS 12/13/20 12/13/20 [Rosette 128] Triamterene/Hydrochlorothiazid 1 cap PO DAILY 12/13/20 12/13/20 [Dyazide 37.5-25 Capsule] Allergies Allergy/AdvReac Type Severity Reaction Status Date / Time codeine Allergy Swelling Verified 12/13/20 21:34 Penicillins Allergy Swelling Verified 12/13/20 21:34 aspirin AdvReac Swelling Verified 12/13/20 21:34 Review of Systems ROS Statement: Those systems with pertinent positive or pertinent negative responses have been documented in the HPI. ROS Other: All systems not noted in ROS Statement are negative. Past Medical History Past Medical History: Hypertension Additional Past Medical History / Comment(s): Migraines, lymphodema History of Any Multi-Drug Resistant Organisms: None Reported Past Surgical History: Uterine Ablation Additional Past Surgical History / Comment(s): gastric sleeve Past Psychological History: No Psychological Hx Reported Smoking Status: Never smoker Past Alcohol Use History: Rare Past Drug Use History: None Reported - Past Family History Mother Family Medical History: Chest Pain / Angina, Congestive Heart Failure (CHF), COPD, Diabetes Mellitus, Hypertension Father Family Medical History: Congestive Heart Failure (CHF), COPD, Coronary Artery Disease (CAD), Diabetes Mellitus, Hypertension, Renal Disease Sister(s) Family Medical History: No Reported History Brother(s) Family Medical History: No Reported History Son(s) Family Medical History: No Reported History General Exam General appearance: alert, in no apparent distress, other (This is a well- developed, well-nourished adult female patient in no acute distress. Vital signs upon presentation are temperature 98.3F, pulse 78, respirations 18, blood pressure 127/83, pulse ox 96% on room air.) Respiratory exam: Present: normal lung sounds bilaterally. Absent: respiratory distress, wheezes, rales, rhonchi, stridor Cardiovascular Exam: Present: regular rate, normal rhythm, normal heart sounds. Absent: systolic murmur, diastolic murmur, rubs, gallop, clicks GI/Abdominal exam: Present: soft, normal bowel sounds. Absent: distended, tenderness, guarding, rebound, rigid Extremities exam: Present: normal inspection, full ROM, normal capillary refill, other (Lower extremity swelling. Skin is pink, warm, dry. Cap refill less than 3 seconds. Pedal and posttibial pulses are 2+ and equal bilaterally.). Absent: tenderness, pedal edema, joint swelling, calf tenderness Neurological exam: Present: alert, oriented X3, CN II-XII intact Psychiatric exam: Present: normal affect, normal mood Skin exam: Present: warm, dry, intact, normal color. Absent: rash Course Vital Signs 12/13/20 20:52 Temperature 98.3 F Pulse Rate 78 Respiratory 18 Rate Blood Pressure 127/83 O2 Sat by Pulse 96 Oximetry Medical Decision Making - Medical Decision Making 50-year-old female patient presents to the emergency department today for evaluation of bilateral lower extremity pain. Physical examination did reveal swelling which is not new for her. Neurovascular status is intact. Bilateral venous Doppler duplex were obtained and showed no evidence for DVT. She is given CHAPO hose. She'll be discharged follow-up with the primary care physician her physical therapist for further evaluation. Return parameters were discussed in detail. She verbalizes understanding and agrees with this plan. My attending is Dr. Olivas. - Radiology Data Radiology results: report reviewed, image reviewed Disposition Clinical Impression: Leg pain Disposition: HOME SELF-CARE Condition: Good Instructions (If sedation given, give patient instructions): Leg Pain (ED) Additional Instructions: Follow-up with your primary care physician for recheck in 1-2 days. Rest. Return to the emergency department for any new, worsening, or concerning symptoms. Is patient prescribed a controlled substance at d/c from ED?: No Referrals: Chino Amador MD [Primary Care Provider] - 1-2 days Time of Disposition: 22:08
[2020-12-13] MEDS: traMADol 50 MG STARTER PACK 3 TAB BTL PO STA (22:53)
[2020-12-13 23:08] VITALS: BP 126/82; PULSE 77
== END 2020-12-13 22:58 | disposition home or self-care (01) ==
LOC: EC 20:45
DX: M79.661 Pain in right lower leg (principal); M79.662 Pain in left lower leg; M79.89 Other specified soft tissue disorders; I10 Essential (primary) hypertension; G43.909 Migraine, unspecified, not intractable, without status migrainosus; Z88.0 Allergy status to penicillin
CPT/HCPCS: 93970; 96372; 99284

== ENCOUNTER 2021-02-04 19:10 | Emergency (ER) | payer BC, OTHER ==
--- NOTE | 2021-02-04 20:13 | XR ---
EXAMINATION TYPE: XR Hip Complete LT DATE OF EXAM: 02/04/2021 COMPARISON: NONE HISTORY: Hip pain TECHNIQUE: 2 views FINDINGS: I see no fracture nor dislocation. Hip joint space is normal. There is no hip dysplasia. IMPRESSION: Negative left hip exam. No fracture.
[2021-02-04] MEDS ORDERED: HYDROmorphone 0.5 MG/0.5 ML SYRINGE IM STA (20:32)
--- NOTE | 2021-02-04 20:37 | ED ---
General Adult HPI - General Chief complaint: Fall Stated complaint: Fall/Lt Hip Pain Time Seen by Provider: 02/04/21 20:18 Source: patient, RN notes reviewed Mode of arrival: ambulatory Limitations: no limitations - History of Present Illness Initial comments: 50-year-old female with a past medical history of hypertension presents to the emergency room for a chief complaint of left hip pain. Patient was walking outside when she tripped over a board and fell onto her left leg and hip. States it is painful to walk on and move. She cannot lay on it because it is painful. Patient denies hitting her head. Denies neck pain. Denies loss of consciousness. Denies blood thinners.Patient has no other complaints at this time including shortness of breath, chest pain, abdominal pain, nausea or vomiting, headache, or visual changes. - Related Data Home Medications Medication Instructions Recorded Confirmed Atorvastatin [Lipitor] 20 mg PO HS 12/13/20 12/13/20 Sodium Chloride 5% Ophth Soln 2 drops BOTH EYES HS 12/13/20 12/13/20 [Rosette 128] Triamterene/Hydrochlorothiazid 1 cap PO DAILY 12/13/20 12/13/20 [Dyazide 37.5-25 Capsule] Previous Rx's Medication Instructions Recorded HYDROcodone/APAP 5-325MG [[place] 1 tab PO Q6HR PRN #10 tab 02/04/21 5-325] Allergies Allergy/AdvReac Type Severity Reaction Status Date / Time codeine Allergy Swelling Verified 02/04/21 19:19 Penicillins Allergy Swelling Verified 02/04/21 19:19 aspirin AdvReac Swelling Verified 02/04/21 19:19 Review of Systems ROS Statement: Those systems with pertinent positive or pertinent negative responses have been documented in the HPI. ROS Other: All systems not noted in ROS Statement are negative. Past Medical History Past Medical History: Hypertension Additional Past Medical History / Comment(s): Migraines, lymphodema History of Any Multi-Drug Resistant Organisms: None Reported Past Surgical History: Uterine Ablation Additional Past Surgical History / Comment(s): gastric sleeve Past Psychological History: No Psychological Hx Reported Smoking Status: Never smoker Past Alcohol Use History: Rare Past Drug Use History: None Reported - Past Family History Mother Family Medical History: Chest Pain / Angina, Congestive Heart Failure (CHF), COPD, Diabetes Mellitus, Hypertension Father Family Medical History: Congestive Heart Failure (CHF), COPD, Coronary Artery Disease (CAD), Diabetes Mellitus, Hypertension, Renal Disease Sister(s) Family Medical History: No Reported History Brother(s) Family Medical History: No Reported History Son(s) Family Medical History: No Reported History General Exam Limitations: no limitations General appearance: alert, in no apparent distress Head exam: Present: atraumatic Eye exam: Present: normal appearance, PERRL, EOMI. Absent: scleral icterus, conjunctival injection ENT exam: Present: normal exam, mucous membranes moist Neck exam: Present: normal inspection, full ROM. Absent: tenderness Respiratory exam: Present: normal lung sounds bilaterally. Absent: respiratory distress, wheezes Cardiovascular Exam: Present: regular rate, normal rhythm, normal heart sounds GI/Abdominal exam: Present: soft, normal bowel sounds. Absent: distended, tenderness Extremities exam: Present: tenderness (Tenderness to the mid left femur as well as lateral left hip.), normal capillary refill (Capillary refill less than 2 seconds, DP pulse 2+ left lower extremity.), other (Mild abrasion of the left hip and lateral thigh.). Absent: full ROM (15 flexion, extension to neutral position of the left hip.) Back exam: Absent: vertebral tenderness Course Vital Signs 02/04/21 19:20 Temperature 98.2 F Pulse Rate 99 Respiratory 20 Rate Blood Pressure 160/118 O2 Sat by Pulse 93 L Oximetry Medical Decision Making - Medical Decision Making X-ray of the left hip and femur are negative. CT of the hip shows no fracture as well. Possible mild subcutaneous bruising over the lateral aspect of the upper thigh noted which is clinically correlated. At this time patient will be given pain medication for home and a orthopedic follow-up. Will return for any worsening symptoms. Disposition Clinical Impression: Leg pain, left, Fall Disposition: HOME SELF-CARE Condition: Good Instructions (If sedation given, give patient instructions): Hip Pain (ED) Additional Instructions: Take Motrin and Tylenol for pain. Please follow-up with your doctor in one to 2 days. Follow-up with orthopedics as well. Return to the emergency room for any worsening symptoms. Prescriptions: HYDROcodone/APAP 5-325MG [[place] 5-325] 1 tab PO Q6HR PRN #10 tab PRN Reason: Pain Is patient prescribed a controlled substance at d/c from ED?: Yes When asked, does pt state using other controlled substances?: No If prescribed controlled substance>3 days was MAPS reviewed?: Prescribed <3 Days If opioid is for acute pain is fill amount 7 days or less?: Yes If Rx opioid, was Start Talking consent form obtained?: Yes Referrals: Chino Amador MD [Primary Care Provider] - 1-2 days Tashi Rocha DO [Doctor of Osteopathic Medicine] - 1-2 days Time of Disposition: 22:06
--- NOTE | 2021-02-04 21:10 | XR ---
EXAMINATION TYPE: XR femur LT DATE OF EXAM: 02/04/2021 COMPARISON: NONE HISTORY: Pain TECHNIQUE: 4 views FINDINGS: Knee joint and hip joint appear intact. I see no fracture nor dislocation. Sacroiliac joint appears intact. Acetabulum appears normal. There is no sign of knee joint effusion. IMPRESSION: Negative left femur exam.
--- NOTE | 2021-02-04 22:00 | CT ---
EXAMINATION TYPE: CT hip LT wo con DATE OF EXAM: 02/04/2021 COMPARISON: None HISTORY: left hip pain following fall CT DLP: 1162.6 mGycm Automated exposure control for dose reduction was used. Images obtained from the mid ileum to the mid shaft of the femur without contrast. Acetabulum is intact hip joint space is fairly normal. Proximal femur is intact. There is no hip dysp lasia. I see no focal bone destruction. Proximal femur is intact. There is no evidence of a soft tiss ue mass. There is mild subcutaneous increased density over the lateral aspect of the proximal femur t hat could be some bruising. There is no sign of free fluid in the pelvis. I see no evidence of pelvic hematoma. IMPRESSION: No fracture seen. Possible mild subcutaneous bruising over the lateral aspect of the upper thigh.
[2021-02-04 22:45] VITALS: BP 156/80; PULSE 82; RESP 19; TEMP 98.7
== END 2021-02-04 22:45 | disposition home or self-care (01) ==
LOC: EC 19:10
DX: S70.212A Abrasion, left hip, initial encounter (principal); S70.312A Abrasion, left thigh, initial encounter; I10 Essential (primary) hypertension; Z79.899 Other long term (current) drug therapy; Z82.49 Family history of ischemic heart disease and other diseases of the circulatory system; Z83.3 Family history of diabetes mellitus; Z88.0 Allergy status to penicillin; Z88.6 Allergy status to analgesic agent; W01.0XXA Fall on same level from slipping, tripping and stumbling without subsequent striking against object, initial encounter; Y93.01 Activity, walking, marching and hiking
CPT/HCPCS: 73502; 73552; 73700; 99284; 96372; J1170

== ENCOUNTER 2021-05-18 19:34 | Emergency (ER) | payer BC, OTHER ==
[2021-05-18 20:52] VITALS: BP 130/95; PULSE 88; TEMP 98.7
--- NOTE | 2021-05-18 23:19 | ED ---
Recheck HPI - General Source: patient Mode of arrival: ambulatory Limitations: no limitations <Nando Soni - Last Filed: 05/18/21 23:19> - General Source: RN notes reviewed <Vadim Weems - Last Filed: 05/19/21 01:23> - General Chief Complaint: Upper Respiratory Infection Stated Complaint: PATRICIA,N/V/D Time Seen by Provider: 05/18/21 23:12 - History of Present Illness Initial Comments: This is a pleasant 50-year-old female states she's been ill since last Tuesday. She tested positive COVID-19 on Tuesday. Complaining of cough, bodyaches, fever, chills, headache. Patient presented requesting infusion of the monoclonal antibody. [place] criteria for BMI. Also has a history of asthma. the patient was immunized last August. , no changes in vision or hearing, no sore throat or difficulty with speech, no neck pain, no chest pain or shortness of breath, no abdominal pain, no nausea or vomiting, no changes in urination or bowel movements, no numbness or tingling, no extremity pain, no skin rashes or lesions. (Vadim Weems) - Related Data Home Medications Medication Instructions Recorded Confirmed Atorvastatin [Lipitor] 20 mg PO HS 12/13/20 12/13/20 Sodium Chloride 5% Ophth Soln 2 drops BOTH EYES HS 12/13/20 12/13/20 [Rosette 128] Triamterene/Hydrochlorothiazid 1 cap PO DAILY 12/13/20 12/13/20 [Dyazide 37.5-25 Capsule] Previous Rx's Medication Instructions Recorded HYDROcodone/APAP 5-325MG [[place] 1 tab PO Q6HR PRN #10 tab 02/04/21 5-325] Allergies Allergy/AdvReac Type Severity Reaction Status Date / Time codeine Allergy Swelling Verified 05/18/21 20:46 Penicillins Allergy Swelling Verified 05/18/21 20:46 aspirin AdvReac Swelling Verified 05/18/21 20:46 Review of Systems ROS Other: All systems not noted in ROS Statement are negative. <Nando Soni - Last Filed: 05/18/21 23:19> ROS Other: All systems not noted in ROS Statement are negative. <Vadim Weems - Last Filed: 05/19/21 01:23> ROS Statement: Those systems with pertinent positive or pertinent negative responses have been documented in the HPI. Past Medical History Past Medical History: Hypertension Additional Past Medical History / Comment(s): Migraines, lymphodema History of Any Multi-Drug Resistant Organisms: None Reported Past Surgical History: Uterine Ablation Additional Past Surgical History / Comment(s): gastric sleeve Past Psychological History: No Psychological Hx Reported Smoking Status: Never smoker Past Alcohol Use History: Rare Past Drug Use History: None Reported - Past Family History Mother Family Medical History: Chest Pain / Angina, Congestive Heart Failure (CHF), COPD, Diabetes Mellitus, Hypertension Father Family Medical History: Congestive Heart Failure (CHF), COPD, Coronary Artery Disease (CAD), Diabetes Mellitus, Hypertension, Renal Disease Sister(s) Family Medical History: No Reported History Brother(s) Family Medical History: No Reported History Son(s) Family Medical History: No Reported History <Nando Soni - Last Filed: 05/18/21 23:19> General Exam Limitations: no limitations <Nando Soni - Last Filed: 05/18/21 23:19> General appearance: alert, in no apparent distress Head exam: Present: atraumatic, normocephalic, normal inspection Eye exam: Present: normal appearance, PERRL, EOMI. Absent: scleral icterus, conjunctival injection, periorbital swelling ENT exam: Present: normal exam, mucous membranes moist Neck exam: Present: normal inspection. Absent: tenderness, meningismus, lymphadenopathy Respiratory exam: Present: normal lung sounds bilaterally. Absent: respiratory distress, wheezes, rales, rhonchi, stridor Cardiovascular Exam: Present: regular rate, normal rhythm, normal heart sounds. Absent: systolic murmur, diastolic murmur, rubs, gallop, clicks GI/Abdominal exam: Present: soft, normal bowel sounds. Absent: distended, tenderness, guarding, rebound, rigid Extremities exam: Present: normal inspection, full ROM, normal capillary refill. Absent: tenderness, pedal edema, joint swelling, calf tenderness Back exam: Present: normal inspection Neurological exam: Present: alert, oriented X3, CN II-XII intact Psychiatric exam: Present: normal affect, normal mood Skin exam: Present: warm, dry, intact, normal color. Absent: rash <Vadim Weems - Last Filed: 05/19/21 01:23> - General Exam Comments Initial Comments: Patient appears to be mildly L but not toxic. Appears to be adequate hydrated, capillary refill less than 2 seconds. (DankVadim) Course Vital Signs 05/18/21 05/18/21 20:46 23:22 Temperature 98.7 F Pulse Rate 88 Respiratory 20 18 Rate Blood Pressure 130/95 O2 Sat by Pulse 98 Oximetry Medical Decision Making <Vadim Weems - Last Filed: 05/19/21 01:23> - Medical Decision Making Vital signs stable, patient afebrile. Nontoxic patient received the monoclonal antibody infusion. Patient tolerated well. No adverse events. Patient counseling quarantine measures as well as COVID-19. Work note given. Course of disease, treatment plan, and return parameters discussed in detail. Patient voiced understanding. Patient was told to return to the ER for any signs or symptoms worsen. Told to return immediately if any other problems arise. All questions answered. Treatment plan discussed. Patient in agreement (DankVadim) Disposition <Nando Soni - Last Filed: 05/18/21 23:19> Is patient prescribed a controlled substance at d/c from ED?: No <Vadim Weems - Last Filed: 05/19/21 01:23> Clinical Impression: URI (upper respiratory infection), COVID-19, Common cold Disposition: HOME SELF-CARE Condition: Good Instructions (If sedation given, give patient instructions): Coronavirus Disease 2019 (COVID-19) Additional Instructions: SELF QUARANTINE DISCHARGE: As you are at risk for symptoms due to coronavirus, please stay home and stay away from others as much as possible. Please maintain social distance of 6 feet if possible. You should not return to work until at least 3 days (72 hours) have passed since recovery of symptoms. This defined as resolution of fever without the use of fever reducing medicines and improvement in respiratory symptoms (e.g,, cough, shortness of breath) and, At least 7 days have passed since symptoms first appeared. More information about what to do if you are sick can be found on the CDC website at https://www.cdc.gov/coronavirus/2019-ncov/be-wbu-lag-sick/lfghf-hwkq-jsdx.html Expect the symptoms to last for 7-14 days from onset. Use acetaminophen (Tylenol) as needed for discomfort. You can take a maximum of 1 gram every 6 hours for discomfort, with your total dose in 24 hours not exceeding 4 grams. Be sure to maintain hydration. Drink continuous water and/or items high in vitamin C, such as orange juice and/or lemonade. For a cough you may take Mucinex or Robitussin. Also consider the use of Vicks Vapor Rub or your chest when you sleep. Use a humidifier that is cleaned frequently, in the bedroom at night. For Nausea /Vomiting/Diarrhea associated with your Illness: o Small frequent sips of room temperature liquids. o Diet: [place] Foods - If you are still experiencing discomfort and/or nausea please slowly advancing your diet using the BRAT Diet = bananas, rice, apples/apple sauce, toast. o With diarrhea avoid any dairy for 48 hours after symptoms resolved. o Continue with activity as tolerated. If your symptoms do get worse and you believe that the upper respiratory infection has developed into something else, such as pneumonia or severe dehydration, please return to the emergency department or follow-up with your primary care. But expect to be symptomatic for the days as indicated above Referrals: Chino Amador MD [Primary Care Provider] - 05/26/21
[2021-05-18 23:24] VITALS: RESP 18
[2021-05-18] MEDS ORDERED: CASIRIVIMAB (REGN10933) (EUA) 600 MG, IMDEVIMAB (REGN10987) (EUA) 600 MG in SODIUM CHLO... IVPB ONE (23:45)
[2021-05-18] MEDS ORDERED: SODIUM CHLORIDE 0.9% 50 ML IVPB ONE (23:45)
[2021-05-18] MEDS ORDERED: BAMLANIVIMAB (EUA) 700 MG, ETESEVIMAB (EUA) 1,400 MG in SODIUM CHLORIDE 0.9% 100 ML IVPB ONE (23:45)
== END 2021-05-19 09:28 | disposition home or self-care (01) ==
LOC: EC 19:34
DX: U07.1 COVID-19 (principal); J06.9 Acute upper respiratory infection, unspecified; J00 Acute nasopharyngitis [common cold]; I10 Essential (primary) hypertension; Z79.899 Other long term (current) drug therapy
CPT/HCPCS: 99283; Q0244

== ENCOUNTER 2021-06-25 14:11 | Inpatient (IN) | payer BC ==
[2021-06-25] MEDS ORDERED: ALBUTEROL NEBULIZED 2.5 MG/3 ML INHALATION STA (14:29)
[2021-06-25] MEDS ORDERED: methylPREDNISolone SOD SUCCI 125 MG/2 ML VIAL IV STA (14:29)
[2021-06-25] MEDS ORDERED: IPRATROPIUM 0.5 MG/2.5 ML NEBU INHALATION STA (14:29)
[2021-06-25 14:45] LABS: Glucose,Whole Blood 128 mg/dL (75-99)
[2021-06-25 15:15] LABS: Basophils % (A) 0 %; Eosinophils # (A) 0.1 k/uL (0-0.7); Eosinophils % (A) 1 %; HCT 44.3 % (34.0-46.0); HGB 15.6 gm/dL (11.4-16.0); Lymphocytes # (A) 3.5 k/uL (1.0-4.8); Lymphocytes % (A) 44 %; MCH 30.7 pg (25.0-35.0); MCHC 35.1 g/dL (31.0-37.0); MCV 87.4 fL (80.0-100.0); Mean Platelet Volume 7.7; Monocytes # (A) 0.5 k/uL (0-1.0); Monocytes % (A) 6 %; Neutrophils # (A) 3.7 k/uL (1.3-7.7); Neutrophils % (A) 47 %; Platelet Count 309 k/uL (150-450); RBC 5.07 m/uL (3.80-5.40); RDW 13.6 % (11.5-15.5)
[2021-06-25 15:27] LABS: ALT 37 U/L (4-34); AST 30 U/L (14-36); African American GFR (CKD) >90 (>60 ml/min/1.73 sqM); Albumin 4.4 g/dL (3.5-5.0); Alkaline Phosphatase 100 U/L (38-126); Anion Gap 15 mmol/L; Blood Urea Nitrogen 11 mg/dL (7-17); Calcium 9.8 mg/dL (8.4-10.2); Carbon Dioxide 16 mmol/L (22-30); Chloride 106 mmol/L (98-107); Glucose 124 mg/dL (74-99); Magnesium 1.8 mg/dL (1.6-2.3); Non-African American GFR(CKD) >90 (>60 ml/min/1.73 sqM); Potassium 3.4 mmol/L (3.5-5.1); Sodium 137 mmol/L (137-145); Total Bilirubin 0.5 mg/dL (0.2-1.3); Total Protein 7.2 g/dL (6.3-8.2)
[2021-06-25 15:31] LABS: INR 0.9 (<1.2); Prothrombin Time 10.2 sec (9.0-12.0)
[2021-06-25 15:36] LABS: Partial Thromboplastin Time 21.1 sec (22.0-30.0)
--- NOTE | 2021-06-25 16:41 | CT ---
EXAMINATION TYPE: CT angio chest DATE OF EXAM: 06/25/2021 4:02 PM COMPARISON: CT dated 06/15/2017 HISTORY: Difficulty breathing. CT DLP: 553.9 mGycm Automated exposure control for dose reduction was used. CONTRAST: CTA scan of the thorax is performed with IV Contrast, patient injected with 100 mL of Isovue 370, pul monary embolism protocol. MIP images were performed and reviewed. FINDINGS: Motion artifacts. No definite filling defect seen within the pulmonary trunk, main pulmonary arteries , segmental and proximal subsegmental arteries. Distal subsegmental arteries are suboptimally assesse d. The pulmonary trunk measures 2.5 cm. Cardiomegaly, please correlate with echocardiographic results . No pathologically enlarged lymph nodes in the chest. Persistent 16mm nodule at the inferior aspect of the thyroid gland, please correlate with thyroid ultrasound results. Expiratory exposure. Loss of volume of the lower lung lobes with prominent interstitial lung markings , possibly augmented by the expiratory exposure. Subsegmental atelectasis are seen in the lung bases. No sizable pleural or pericardial effusion. Hepatic steatosis. Previous gastric surgery. Thickened a drenals without definite lesion, stable. Degenerative changes of the thoracic spine. IMPRESSION: No major or central pulmonary embolism with the limitation of the artifactual images. The described p ulmonary changes could be augmented by the expiratory exposure however pulmonary edema can't be exclu ded. Increased cardiac size. Hepatic steatosis.
--- NOTE | 2021-06-25 17:56 | XR ---
EXAMINATION TYPE: XR chest 1V portable DATE OF EXAM: 06/25/2021 4:52 PM COMPARISON:Chest radiographs from 06/22/2021 TECHNIQUE: XR chest 1V portable Frontal view of the chest. CLINICAL INDICATION:Female, 50 years old with history of shauna; FINDINGS: Lungs/Pleura: There is no evidence of pleural effusion, focal consolidation, or pneumothorax. Pulmonary vascularity: Unremarkable. Heart/mediastinum: Cardiomediastinal silhouette is unremarkable. Musculoskeletal: No acute osseous pathology. IMPRESSION: No acute cardiopulmonary disease/process.
[2021-06-25] MEDS ORDERED: IPRATROPIUM-ALBUTEROL 3 ML NEB INHALATION PRN (18:31)
--- NOTE | 2021-06-25 18:37 | ED ---
General Adult HPI - General Chief complaint: Shortness of Breath Stated complaint: SOB Time Seen by Provider: 06/25/21 14:19 Source: patient, RN notes reviewed, old records reviewed Mode of arrival: wheelchair Limitations: no limitations - History of Present Illness Initial comments: 50-year-old female presents in respiratory distress. Patient was seen at the senior care provider office and sent to the emergency department for evaluation. She's been dealing with dyspnea for approximately one month. This has been quite severe at times. She's had a lot of coughing. She had coronavirus one month ago and has had these symptoms ever since. She denies central chest pain. She denies lower extremity swelling. History is somewhat limited secondary to re spiratory distress. - Related Data Home Medications Medication Instructions Recorded Confirmed Sodium Chloride 5% Ophth Soln 2 drops BOTH EYES HS 12/13/20 06/25/21 [Rosette 128] Albuterol Inhaler [Ventolin Hfa 2 puff INHALATION RT-Q4H PRN 06/25/21 06/25/21 Inhaler] Fluticasone Nasal [place] [Flonase 1 spray EA NOSTRIL BID PRN 06/25/21 06/25/21 Nasal [facility]] Topiramate 50 mg PO BID 06/25/21 06/25/21 Triamterene/Hydrochlorothiazid 1 tab PO DAILY 06/25/21 06/25/21 [Triamterene-Hctz 37.5-25 mg Tb] Zinc 50 mg PO DAILY 06/25/21 06/25/21 predniSONE [Deltasone] 20 mg PO DAILY 06/25/21 06/25/21 Allergies Allergy/AdvReac Type Severity Reaction Status Date / Time aspirin Allergy Severe Swelling Verified 06/25/21 15:15 throat codeine Allergy Severe Swelling Verified 06/25/21 15:15 throat Penicillins Allergy Severe Swelling Verified 06/25/21 15:15 throat Review of Systems ROS Statement: Those systems with pertinent positive or pertinent negative responses have been documented in the HPI. ROS Other: All systems not noted in ROS Statement are negative. Past Medical History Past Medical History: Hypertension Additional Past Medical History / Comment(s): Migraines, lymphodema History of Any Multi-Drug Resistant Organisms: None Reported Past Surgical History: Uterine Ablation Additional Past Surgical History / Comment(s): gastric sleeve Past Psychological History: No Psychological Hx Reported Smoking Status: Never smoker Past Alcohol Use History: Rare Past Drug Use History: None Reported - Past Family History Mother Family Medical History: Chest Pain / Angina, Congestive Heart Failure (CHF), COPD, Diabetes Mellitus, Hypertension Father Family Medical History: Congestive Heart Failure (CHF), COPD, Coronary Artery Disease (CAD), Diabetes Mellitus, Hypertension, Renal Disease Sister(s) Family Medical History: No Reported History Brother(s) Family Medical History: No Reported History Son(s) Family Medical History: No Reported History General Exam Limitations: no limitations General appearance: alert, in distress Head exam: Present: atraumatic, normocephalic Eye exam: Present: normal appearance, PERRL ENT exam: Present: normal exam Neck exam: Present: normal inspection. Absent: tenderness, meningismus Respiratory exam: Present: respiratory distress, wheezes, rhonchi, accessory muscle use, decreased breath sounds Cardiovascular Exam: Present: normal rhythm, tachycardia GI/Abdominal exam: Present: soft. Absent: distended, tenderness, guarding, rebound Extremities exam: Present: normal inspection, normal capillary refill. Absent: pedal edema, calf tenderness Neurological exam: Present: alert, oriented X3, CN II-XII intact. Absent: motor sensory deficit Psychiatric exam: Present: anxious Skin exam: Present: warm, dry, intact. Absent: cyanosis, diaphoretic Course Vital Signs 06/25/21 06/25/21 06/25/21 14:13 14:44 15:11 Temperature 97.0 F L 98.2 F Pulse Rate 112 H 68 71 Respiratory 26 H 16 20 Rate Blood Pressure 182/92 143/96 O2 Sat by Pulse 97 100 Oximetry 06/25/21 06/25/21 15:25 18:19 Temperature 98.1 F Pulse Rate 70 89 Respiratory 18 14 Rate Blood Pressure 139/78 O2 Sat by Pulse 98 Oximetry EKG Findings - EKG Comments: EKG Findings:: EKG: Sinus tachycardia question some ST segment depression in the lateral precordial leads, ventricular rate of 100, CA interval 148, QRS duration 85, QTc 412, no ST segment elevation. Medical Decision Making - Medical Decision Making 50 -year-old female presents for evaluation of cough and dyspnea. Patient is in moderate respiratory distress. Workup is initiated as well as treatment for suspected bronchospasm. Patient given albuterol, Atrovent, and steroids in the emergency department. She does have significant improvement in work of breath ing on reevaluation. She has a normal CBC. She has a mild lactic acid at 3.2. I do not suspect this is secondary to sepsis. She has a negative troponin, negative BNP. Did perform CT angiography given the recent coronavirus infection. This is negative for central pulmonary embolism. She will be admitted to Dr. Cleveland who is aware. She will be continued on steroids and albuterol as well as Atrovent. Pulmonology has been placed on consult. - Lab Data Result diagrams: 06/25/21 15:02 06/25/21 15:02 Lab Results 06/25/21 06/25/21 06/25/21 Range/Units 14:43 15:02 15:02 WBC 8.0 (3.8-10.6) k/uL RBC 5.07 (3.80-5.40) m/uL Hgb 15.6 (11.4-16.0) gm/dL Hct 44.3 (34.0-46.0) % MCV 87.4 (80.0-100.0) fL MCH 30.7 (25.0-35.0) pg MCHC 35.1 (31.0-37.0) g/dL RDW 13.6 (11.5-15.5) % Plt Count 309 (150-450) k/uL MPV 7.7 Neutrophils % 47 % Lymphocytes % 44 % Monocytes % 6 % Eosinophils % 1 % Basophils % 0 % Neutrophils # 3.7 (1.3-7.7) k/uL Lymphocytes # 3.5 (1.0-4.8) k/uL Monocytes # 0.5 (0-1.0) k/uL Eosinophils # 0.1 (0-0.7) k/uL Basophils # 0.0 (0-0.2) k/uL PT 10.2 (9.0-12.0) sec INR 0.9 (<1.2) APTT 21.1 L (22.0-30.0) sec Sodium (137-145) mmol/L Potassium (3.5-5.1) mmol/L Chloride (98-107) mmol/L Carbon Dioxide (22-30) mmol/L Anion Gap mmol/L BUN (7-17) mg/dL Creatinine (0.52-1.04) mg/dL Est GFR (CKD-EPI)AfAm (>60 ml/min/1.73 sqM) Est GFR (CKD-EPI)NonAf (>60 ml/min/1.73 sqM) Glucose (74-99) mg/dL POC Glucose (mg/dL) 128 H (75-99) mg/dL POC Glu Wax Pumper ID Ana Lilia Brandon Ac Sepsis Rflx Plasma Lactic Acid Jonatan (0.7-2.0) mmol/L Calcium (8.4-10.2) mg/dL Magnesium (1.6-2.3) mg/dL Total Bilirubin (0.2-1.3) mg/dL AST (14-36) U/L ALT (4-34) U/L Alkaline Phosphatase (38-126) U/L Troponin I (0.000-0.034) ng/mL NT-Pro-B Natriuret Pep pg/mL Total Protein (6.3-8.2) g/dL Albumin (3.5-5.0) g/dL Influenza Type A RNA (Not Detectd) Influenza Type B (PCR) (Not Detectd) 06/25/21 06/25/21 06/25/21 Range/Units 15:02 15:02 15:02 WBC (3.8-10.6) k/uL RBC (3.80-5.40) m/uL Hgb (11.4-16.0) gm/dL Hct (34.0-46.0) % MCV (80.0-100.0) fL MCH (25.0-35.0) pg MCHC (31.0-37.0) g/dL RDW (11.5-15.5) % Plt Count (150-450) k/uL MPV Neutrophils % % Lymphocytes % % Monocytes % % Eosinophils % % Basophils % % Neutrophils # (1.3-7.7) k/uL Lymphocytes # (1.0-4.8) k/uL Monocytes # (0-1.0) k/uL Eosinophils # (0-0.7) k/uL Basophils # (0-0.2) k/uL PT (9.0-12.0) sec INR (<1.2) APTT (22.0-30.0) sec Sodium 137 (137-145) mmol/L Potassium 3.4 L (3.5-5.1) mmol/L Chloride 106 (98-107) mmol/L Carbon Dioxide 16 L (22-30) mmol/L Anion Gap 15 mmol/L BUN 11 (7-17) mg/dL Creatinine 0.62 (0.52-1.04) mg/dL Est GFR (CKD-EPI)AfAm >90 (>60 ml/min/1.73 sqM) Est GFR (CKD-EPI)NonAf >90 (>60 ml/min/1.73 sqM) Glucose 124 H (74-99) mg/dL POC Glucose (mg/dL) (75-99) mg/dL POC Glu [place]umper ID Lactic Ac Sepsis Rflx Plasma Lactic Acid Jonatan 3.2 H* (0.7-2.0) mmol/L Calcium 9.8 (8.4-10.2) mg/dL Magnesium 1.8 (1.6-2.3) mg/dL Total Bilirubin 0.5 (0.2-1.3) mg/dL AST 30 (14-36) U/L ALT 37 H (4-34) U/L Alkaline Phosphatase 100 (38-126) U/L Troponin I <0.012 (0.000-0.034) ng/mL NT-Pro-B Natriuret Pep pg/mL Total Protein 7.2 (6.3-8.2) g/dL Albumin 4.4 (3.5-5.0) g/dL Influenza Type A RNA (Not Detectd) Influenza Type B (PCR) (Not Detectd) 06/25/21 06/25/21 06/25/21 Range/Units 15:02 15:08 15:37 WBC (3.8-10.6) k/uL RBC (3.80-5.40) m/uL Hgb (11.4-16.0) gm/dL Hct (34.0-46.0) % MCV (80.0-100.0) fL MCH (25.0-35.0) pg MCHC (31.0-37.0) g/dL RDW (11.5-15.5) % Plt Count (150-450) k/uL MPV Neutrophils % % Lymphocytes % % Monocytes % % Eosinophils % % Basophils % % Neutrophils # (1.3-7.7) k/uL Lymphocytes # (1.0-4.8) k/uL Monocytes # (0-1.0) k/uL Eosinophils # (0-0.7) k/uL Basophils # (0-0.2) k/uL PT (9.0-12.0) sec INR (<1.2) APTT (22.0-30.0) sec Sodium (137-145) mmol/L Potassium (3.5-5.1) mmol/L Chloride (98-107) mmol/L Carbon Dioxide (22-30) mmol/L Anion Gap mmol/L BUN (7-17) mg/dL Creatinine (0.52-1.04) mg/dL Est GFR (CKD-EPI)AfAm (>60 ml/min/1.73 sqM) Est GFR (CKD-EPI)NonAf (>60 ml/min/1.73 sqM) Glucose (74-99) mg/dL POC Glucose (mg/dL) (75-99) mg/dL POC Glu Wax Pumper ID Lactic Ac Sepsis Rflx Y Plasma Lactic Acid Jonatan (0.7-2.0) mmol/L Calcium (8.4-10.2) mg/dL Magnesium (1.6-2.3) mg/dL Total Bilirubin (0.2-1.3) mg/dL AST (14-36) U/L ALT (4-34) U/L Alkaline Phosphatase (38-126) U/L Troponin I (0.000-0.034) ng/mL NT-Pro-B Natriuret Pep 37 pg/mL Total Protein (6.3-8.2) g/dL Albumin (3.5-5.0) g/dL Influenza Type A RNA Not Detected (Not Detectd) Influenza Type B (PCR) Not Detected (Not Detectd) Disposition Clinical Impression: Reactive airway disease Disposition: ADMITTED IP TO THIS HOSP Condition: Stable Is patient prescribed a controlled substance at d/c from ED?: No Referrals: Chino Amador MD [Primary Care Provider] - 1-2 days Decision to Admit Reason: Admit from EC Decision Date: 06/25/21 Decision Time: 18:37
[2021-06-25] MEDS: SODIUM CHLORIDE 0.9% 1,000 ML IV SCH (18:59)
[2021-06-25] MEDS ORDERED: HYDROmorphone 1 MG/ML 1 ML SYRINGE IVP STA (19:40)
[2021-06-25] MEDS: IPRATROPIUM-ALBUTEROL 3 ML NEB INHALATION SCH (19:48)
[2021-06-26] MEDS: methylPREDNISolone SOD SUCCI 125 MG/2 ML VIAL IV SCH ×4 (01:35→18:19)
[2021-06-26] MEDS ORDERED: MORPHINE SULFATE 4 MG/ML SYRINGE IVP STA (04:34)
[2021-06-26] MEDS ORDERED: MORPHINE SULFATE 4 MG/ML SYRINGE IV PRN (04:34)
[2021-06-26] MEDS: IPRATROPIUM-ALBUTEROL 3 ML NEB INHALATION SCH ×4 (08:41→20:39)
[2021-06-26] MEDS: SODIUM CHLORIDE 0.9% 1,000 ML IV SCH ×2 (10:03→19:17)
[2021-06-26] MEDS: AZITHROMYCIN 500 MG TAB PO SCH (10:28)
[2021-06-26] MEDS ORDERED: FLUTICASONE 50MCG/SPRAY NASAL 16GM EA NOSTRIL PRN (14:14)
[2021-06-26] MEDS ORDERED: Potassium Replacement Protocol 1 EACH MISC MISCELLANE PRN (14:16)
--- NOTE | 2021-06-26 14:24 | P.HPIM ---
History of Present Illness H&P Date: 06/26/21 Chief Complaint: Ongoing dyspnea with nonproductive spurts of coughing 1 month This is a 50-year-old female with past medical history of hypertension, migraines, lymphedema, gastric sleeve, no smoking history and multiple other medical issues directed to the ER by Dr. Ricci. Approximately one month ago patient, vaccinated, came down with covid has continued to have ongoing shortness of breath with nonproductive spurts of coughing. Denies chest pain, palpitations. On admission afebrile, normal WBC, tachycardic with heart rate low 100s, respiratory rate 16 to 20s, hypertensive with, maintaining O2 sats in the high 90s to 100% on room air . Troponin negative 1. EKG reported sinus tachycardia, chest CTA reported negative for PE, persistent 16 mm nodule at the inferior aspect of the thyroid gland,subsegmental atelectasis bilateral bases, cardiomegaly, hepatic steatosis thickened adrenals without definite lesion, stable. Hemoglobin 15.6, platelets 309 , bicarb 16 ,Lactic acid 3.2 on admission, resolved with IV fluid hydration . Renal function stable .Currently maintaining O2 sats in the 90s on 2 L nasal cannula, tachycardia has resolved, blood pressure controlled. Potassium 3.4 on admission, repeat BMP pending. Gracia virus, influenza A/B not detected. Treated in the ER for suspected bronchospasms. Pulmonology consult in place. Review of Systems ROS Statement: Those systems with pertinent positive or pertinent negative responses have been documented in the HPI. ROS Other: All systems not noted in ROS Statement are negative. Past Medical History Past Medical History: Hypertension Additional Past Medical History / Comment(s): Migraines, lymphodema History of Any Multi-Drug Resistant Organisms: None Reported Past Surgical History: Uterine Ablation Additional Past Surgical History / Comment(s): gastric sleeve Past Psychological History: No Psychological Hx Reported Smoking Status: Never smoker Past Alcohol Use History: Rare Past Drug Use History: None Reported - Past Family History Mother Family Medical History: Chest Pain / Angina, Congestive Heart Failure (CHF), COPD, Diabetes Mellitus, Hypertension Father Family Medical History: Congestive Heart Failure (CHF), COPD, Coronary Artery Disease (CAD), Diabetes Mellitus, Hypertension, Renal Disease Sister(s) Family Medical History: No Reported History Brother(s) Family Medical History: No Reported History Son(s) Family Medical History: No Reported History Medications and Allergies Home Medications Medication Instructions Recorded Confirmed Type Sodium Chloride 5% Ophth Soln 2 drops BOTH EYES HS 12/13/20 06/25/21 History [Rosette 128] Albuterol Inhaler [Ventolin Hfa 2 puff INHALATION RT-Q4H PRN 06/25/21 06/25/21 History Inhaler] Fluticasone Nasal [place] [Flonase 1 spray EA NOSTRIL BID PRN 06/25/21 06/25/21 History Nasal [place]] Topiramate 50 mg PO BID 06/25/21 06/25/21 History Triamterene/Hydrochlorothiazid 1 tab PO DAILY 06/25/21 06/25/21 History [Triamterene-Hctz 37.5-25 mg Tb] Zinc 50 mg PO DAILY 06/25/21 06/25/21 History predniSONE [Deltasone] 20 mg PO DAILY 06/25/21 06/25/21 History Allergies Allergy/AdvReac Type Severity Reaction Status Date / Time aspirin Allergy Severe Swelling Verified 06/25/21 15:15 throat codeine Allergy Severe Swelling Verified 06/25/21 15:15 throat Penicillins Allergy Severe Swelling Verified 06/25/21 15:15 throat Physical Exam Vitals: Vital Signs Temp Pulse Pulse Resp BP BP Pulse Ox 06/26/21 08:52 61 06/26/21 08:42 60 96 06/26/21 07:00 98.0 F 66 17 135/80 95 06/26/21 05:05 81 18 140/65 95 06/26/21 04:00 85 22 128/91 95 06/26/21 01:00 81 22 131/84 96 06/25/21 19:56 88 06/25/21 19:50 86 06/25/21 18:19 98.1 F 89 14 139/78 98 06/25/21 15:25 70 18 06/25/21 15:11 71 20 06/25/21 14:44 98.2 F 68 16 143/96 100 06/25/21 14:13 97.0 F L 112 H 26 H 182/92 97 Intake and Output 06/25/21 06/26/21 06/26/21 22:59 06:59 14:59 Intake Total 118 Balance 118 Intake: Oral 118 Other: Weight 101.605 kg GENERAL: This is a 50-year-old female in no apparent distress at the time of examination. Pleasant and cooperative. HEENT: Head is atraumatic, normocephalic. Pupils are equal, round, and reactive to light. Sclerae anicteric. Conjunctivae are clear. Mucus membranes of the mouth are moist. Neck is supple. No JVD. RESPIRATORY: Good bilateral air entry. Clear to ausculation. No wheezes, rales, or rhonchi. No use of accessory muscles. Patient maintaining oxygen saturation greater than 92%. No chest wall tenderness is noted on palpation or with deep breathing. CARDIOVASCULAR: Regular rate and rhythm. S1 and S2 noted. No systolic or diastolic murmur auscultated. No S3 or S4 noted. GASTROINTESTINAL: No distention noted. Abdomen soft and round. Normal active bowel sounds auscultated x 4 quadrants. No pain or tenderness noted upon palpation. INTEGUMENTARY: No cyanosis. No jaundice. No rashes noted. No cellulitis noted. EXTREMITIES: No swelling, clubbing or cyanosis, no calf tenderness, 2+ peripheral pulses NEUROLOGIC: Cranial nerves II-XII intact. No focal deficits PSYCHIATRIC: Awake, alert, and oriented X 3. Mood and affect normal, Results CBC & Chem 7: 06/25/21 15:02 06/25/21 15:02 Labs: Abnormal Lab Results - Last 24 Hours (Table) 06/25/21 06/25/21 06/25/21 Range/Units 14:43 15:02 15:02 APTT 21.1 L (22.0-30.0) sec Potassium 3.4 L (3.5-5.1) mmol/L Carbon Dioxide 16 L (22-30) mmol/L Glucose 124 H (74-99) mg/dL POC Glucose (mg/dL) 128 H (75-99) mg/dL Plasma Lactic Acid Jonatan (0.7-2.0) mmol/L ALT 37 H (4-34) U/L 06/25/21 Range/Units 15:02 APTT (22.0-30.0) sec Potassium (3.5-5.1) mmol/L Carbon Dioxide (22-30) mmol/L Glucose (74-99) mg/dL POC Glucose (mg/dL) (75-99) mg/dL Plasma Lactic Acid Jonatan 3.2 H* (0.7-2.0) mmol/L ALT (4-34) U/L Thrombosis Risk Factor Assmnt - Choose All That Apply Any of the Below Risk Factors Present?: Yes Each Factor Represents 1 point: Obesity (BMI >25) Other Risk Factors: No Other congenital or acquired thrombophilia - If yes, enter type in comment: No Thrombosis Risk Factor Assessment Total Risk Factor Score: 1 Thrombosis Risk Factor Assessment Level: Low Risk Assessment and Plan Assessment: Reactive airway disease, possible bronchitis secondary to Recent Covid infection 1 month ago, vaccinated Acute respiratory failure secondary to the above Lactic acidosis, resolved with IV fluid hydration Subsegmental atelectasis bilateral bases Hypokalemia Persistent 16 mm nodule at the inferior aspect of the thyroid gland, further follow-up recommended. Cardiomegaly Hypertension Hepatic steatosis Morbid obesity, BMI 41 Plan: Continue on current medication regime ,monitoring and symptomatic treatment. BMP pending. Potassium replacement protocol in place. Empiric antibiotics. Blood cultures in progress. Aggressive pulmonary toileting with nebulized bronchodilators, IV steroids. The impression and plan of care has been dictated as directed. : I performed a history and examination of this patient, discussed the same with the dictator. I agree with the dictator's note ,documented as a scribe. Any additional findings or plans will be noted.
[2021-06-26 15:18] LABS: African American GFR (CKD) >90 (>60 ml/min/1.73 sqM); Anion Gap 8 mmol/L; Blood Urea Nitrogen 12 mg/dL (7-17); Calcium 9.2 mg/dL (8.4-10.2); Carbon Dioxide 22 mmol/L (22-30); Chloride 105 mmol/L (98-107); Glucose 238 mg/dL (74-99); Non-African American GFR(CKD) >90 (>60 ml/min/1.73 sqM); Potassium 4.3 mmol/L (3.5-5.1); Sodium 135 mmol/L (137-145)
--- NOTE | 2021-06-26 16:59 | P.CNPUL ---
History of Present Illness Consult date: 06/26/21 Requesting physician: Neymar Cleveland Jr Reason for consult: dyspnea Chief complaint: Shortness of breath History of present illness: This is a 50-year-old female patient who follows with Dr. Amador as her primary care provider. She has a history of hypertension, migraines, obesity with previous gastric sleeve. Remotr smoker. She was to be seen at our office yesterday but was having significant cough and shortness of breath during her PFT and was referred to the emergency room. She states she has been short of breath since having CoVID about 6 weeks ago. She was treated with Decadron and colchicine. She was not hospitalized at that time. She has no previous pulmonary symptoms or complaints. No history of asthma. No COPD. chest x-ray shows no acute pulmonary process. CAT scan revealed no central pulmonary embolism. white count 8.0. Hemoglobin 15.6. Platelets 309. Sodium 135. Potassium 4.3. Creatinine 0.53. Gracia virus by PCR not detected. Influenza screen negative. Troponin negative 1. ProBNP 37. She did have an brief episode of unresponsiveness and slumped in a chair in the emergency room and it CODE BLUE was called however called off shortly thereafter. She is seen today in consultation on the regular medical floor. She is awake and alert. She is still having complaints of shortness of breath and dry nonproductive cough. She is maintaining O2 saturations in the mid 90s on 2 L/m per nasal cannula. She's been afebrile. Hemodynamically stable. She had been initiated on IV Solu- Medrol, DuoNeb inhalations, antibiotics in the form of azithromycin. Review of Systems REVIEW OF SYSTEMS: CONSTITUTIONAL: Denies any recent significant weight loss or weight gain. EYES: Denies change in vision. EARS, NOSE, MOUTH, THROAT: Denies headaches, denies sore throat. CARDIOVASCULAR: Denies chest pain, palpitations or syncopal episodes. RESPIRATORY: Positive for shortness of breath, cough, congestion no hemoptysis. GASTROINTESTINAL: Denies change in appetite, denies abdominal pain GENITOURINARY: Denies hematuria, denies infections. MUSKULOSKELETAL: Denies pain, denies swelling. INTEGUMENTARY: Denies rash, denies eczema. NEUROLOGICAL: Denies recent memory loss, no recent seizure activity. PSYCHIATRIC: Denies anxiety, denies depression. HEMATOLOGIC/LYMPHATIC: Denies anemia, denies enlarged lymph nodes. Past Medical History Past Medical History: Hypertension Additional Past Medical History / Comment(s): Migraines, lymphodema History of Any Multi-Drug Resistant Organisms: None Reported Past Surgical History: Uterine Ablation Additional Past Surgical History / Comment(s): gastric sleeve Past Psychological History: No Psychological Hx Reported Smoking Status: Never smoker Past Alcohol Use History: Rare Past Drug Use History: None Reported - Past Family History Mother Family Medical History: Chest Pain / Angina, Congestive Heart Failure (CHF), COPD, Diabetes Mellitus, Hypertension Father Family Medical History: Congestive Heart Failure (CHF), COPD, Coronary Artery Disease (CAD), Diabetes Mellitus, Hypertension, Renal Disease Sister(s) Family Medical History: No Reported History Brother(s) Family Medical History: No Reported History Son(s) Family Medical History: No Reported History Medications and Allergies Home Medications Medication Instructions Recorded Confirmed Type Sodium Chloride 5% Ophth Soln 2 drops BOTH EYES HS 12/13/20 06/25/21 History [Rosette 128] Albuterol Inhaler [Ventolin Hfa 2 puff INHALATION RT-Q4H PRN 06/25/21 06/25/21 History Inhaler] Fluticasone Nasal [place] [Flonase 1 spray EA NOSTRIL BID PRN 06/25/21 06/25/21 History Nasal [place]] Topiramate 50 mg PO BID 06/25/21 06/25/21 History Triamterene/Hydrochlorothiazid 1 tab PO DAILY 06/25/21 06/25/21 History [Triamterene-Hctz 37.5-25 mg Tb] Zinc 50 mg PO DAILY 06/25/21 06/25/21 History predniSONE [Deltasone] 20 mg PO DAILY 06/25/21 06/25/21 History Allergies Allergy/AdvReac Type Severity Reaction Status Date / Time aspirin Allergy Severe Swelling Verified 06/25/21 15:15 throat codeine Allergy Severe Swelling Verified 06/25/21 15:15 throat Penicillins Allergy Severe Swelling Verified 06/25/21 15:15 throat Physical Exam Vitals: Vital Signs Temp Pulse Pulse Resp BP BP Pulse Ox 06/26/21 16:27 76 06/26/21 16:19 94 L 06/26/21 16:16 73 06/26/21 14:06 97.8 F 88 16 147/73 94 L 06/26/21 12:19 75 06/26/21 12:08 76 06/26/21 08:52 61 06/26/21 08:42 60 96 06/26/21 07:00 98.0 F 66 17 135/80 95 06/26/21 05:05 81 18 140/65 95 06/26/21 04:00 85 22 128/91 95 06/26/21 01:00 81 22 131/84 96 06/25/21 19:56 88 06/25/21 19:50 86 06/25/21 18:19 98.1 F 89 14 139/78 98 Intake and Output 06/26/21 06/26/21 06/26/21 06:59 14:59 22:59 Intake Total 236 Balance 236 Intake: Oral 236 Other: # Voids 3 # Bowel Movements 0 GENERAL EXAM: Alert, 50-year-old female patient, on 2 L nasal cannula, comfortable in no apparent distress. HEAD: Normocephalic. EYES: Normal reaction of pupils, equal size. NOSE: Clear with pink turbinates. THROAT: No erythema or exudates. NECK: No masses, no JVD. CHEST: No chest wall deformity. LUNGS: Equal air entry with no crackles, wheeze, rhonchi or dullness. CVS: S1 and S2 normal with no audible murmur, regular rhythm. ABDOMEN: No hepatosplenomegaly, normal bowel sounds, no guarding or rigidity. SPINE: No scoliosis or deformity SKIN: No rashes CENTRAL NERVOUS SYSTEM: No focal deficits, tone is normal in all 4 extremities. EXTREMITIES: There is no peripheral edema. No clubbing, no cyanosis. Peripheral pulses are intact. Results - Laboratory Findings CBC and BMP: 06/25/21 15:02 06/26/21 14:56 PT/INR, D-dimer PT 10.2 sec (9.0-12.0) 06/25/21 15:02 INR 0.9 (<1.2) 06/25/21 15:02 Abnormal lab findings: Abnormal Labs 06/25/21 06/25/21 06/25/21 14:43 15:02 15:02 APTT 21.1 L Sodium Potassium 3.4 L Carbon Dioxide 16 L Glucose 124 H POC Glucose (mg/dL) 128 H Plasma Lactic Acid Jonatan ALT 37 H 06/25/21 06/26/21 15:02 14:56 APTT Sodium 135 L Potassium Carbon Dioxide Glucose 238 H POC Glucose (mg/dL) Plasma Lactic Acid Jonatan 3.2 H* ALT - Diagnostic Findings Chest x-ray: image reviewed CT scan - chest: image reviewed Assessment and Plan Assessment: 1 Chronic cough and shortness of breath secondary to previous COVID-19 infection approximately 6 weeks ago. Patient is vaccinated. Treated with Decadron and colchicine in the outpatient setting. Chest x-ray reveals no acute pulmonary process. 2 Hyperglycemia, steroid induced the History of obesity with previous gastric sleeve. Current BMI 41 kg/m 4 Hypertension Plan: The patient was seen and evaluated Chest x-ray, CAT scans and labs reviewed Continue bronchodilators, steroids, antibiotics for now Check a pro-calcitonin Titrate the FiO2 as tolerated We will continue to follow and make further recommendations based on her clinical status I, the cosigning physician, performed a history & physical examination of the patient. Lungs sounds are clear. Maintaining good O2 saturations in the 90s on 2 L/m per nasal cannula. I discussed the assessment and plan of care with my nurse practitioner, Nita Gomez. I attest to the above consultation as dictated by her. I have personally seen and examined the patient, performed the documentation and the assessment and plan as written. Number of minutes spent on the visit: 20.
[2021-06-26] MEDS: ZINC SULFATE 220 MG CAP PO SCH (18:14)
[2021-06-26] MEDS: TRIAMTERENE-HCTZ 37.5-25MG 1 EACH TAB PO SCH (18:19)
[2021-06-26] MEDS: TOPIRAMATE 25 MG TAB PO SCH (19:15)
[2021-06-26] MEDS: SODIUM CHLORIDE 5% OPHTH DROPS 15 ML BTL BOTH EYES SCH (19:15)
[2021-06-27] MEDS: methylPREDNISolone SOD SUCCI 125 MG/2 ML VIAL IV SCH ×5 (00:17→23:09)
[2021-06-27] MEDS: IPRATROPIUM-ALBUTEROL 3 ML NEB INHALATION SCH ×4 (07:54→20:17)
[2021-06-27] MEDS: AZITHROMYCIN 500 MG TAB PO SCH (09:12)
[2021-06-27] MEDS: ZINC SULFATE 220 MG CAP PO SCH (09:12)
[2021-06-27] MEDS: TOPIRAMATE 25 MG TAB PO SCH ×2 (09:13→19:56)
[2021-06-27] MEDS: TRIAMTERENE-HCTZ 37.5-25MG 1 EACH TAB PO SCH (09:13)
[2021-06-27] MEDS: SODIUM CHLORIDE 0.9% 1,000 ML IV SCH ×2 (09:26→23:09)
--- NOTE | 2021-06-27 12:05 | P.CRDCN ---
History of Present Illness Consult date: 06/27/21 History of present illness: HISTORY OF PRESENT ILLNESS This is a 50-year-old female patient with past history of hypertension, migraines, obesity with previous gastric sleeve, COVID-19 infection 6 weeks ago. Patient states she is feeling tired and short of breath. She continues to have cough and hoarseness since Covid 19 infection. While in the emergency center yesterday, patient apparently had a brief episode of syncope. She states that she woke up and someone was pressing on her chest. She denies any lightheadedness or dizziness. Patient is seen on the observation unit. Echocardiogram is being obtained. EKG is sinus tachycardia at 100 bpm. Orthostatic vital signs are negative. cardiac monitor has been negative for arrhythmias. CBC was unremarkable. Potassium was 3.4 and was replaced. Creatinine 0.62. Lactic acid 3.2 and repeat 1.5. Troponin negative. Rotavirus, influenza A, influenza B not detected. Pro-calcitonin 0.05. CT angiogram of the chest revealed no major or central pulmonary embolism with limitations. Pulmonary edema cannot be excluded. Increased cardiac size. Hepatic steatosis. Chest x-ray reveals no acute cardio pulmonary disease. Patient is followed by pulmonary medicine for chronic cough and shortness of breath. REVIEW OF SYSTEMS Constitutional: No fever, no chills. No weakness, fatigue or lethargy. EENT: No headache. No dizziness. Lungs: Reported shortness of breath, reported cough, no sputum production. No wheezing. Cardiovascular: No chest pain, no lower extremity edema. No palpitations. No paroxysmal nocturnal dyspnea. No orthopnea. No lightheadedness or dizziness. Reported syncopal episodes. Abdominal: No abdominal pain. No nausea, vomiting. No diarrhea. No constipation. No bloody or tarry stools.. No loss of appetite. Genitourinary: No dysuria.. No urinary retention. Musculoskeletal: No myalgias. No muscle weakness, no gait dysfunction, no frequent falls. No back pain. No neck pain. Integumentary: No wounds, no lesions. No rash or pruritus. No unusual bruising. Neurologic: No aphasia. No facial droop. No change in mentation. No head injury. No headache. No paralysis. No paresthesia. Psychiatric: No depression. No anxiety. Endocrine: No abnormal blood sugars. PHYSICAL EXAMINATION Gen: This is a a 50-year-old female. She is resting in bed and appears to be comfortable and in no acute distress. HEENT: Head is atraumatic, normocephalic. Pupils equal, round. Sclerae is anicteric. NECK: Supple. No JVD. No lymphadenopathy. No thyromegaly. LUNGS: Clear to auscultation. No wheezes or rhonchi. No intercostal retractions. HEART: Regular rate and rhythm. No murmur. ABDOMEN: Soft. Bowel sounds are present. No masses. No tenderness. EXTREMITIES: No pedal edema. No calf tenderness. NEUROLOGICAL: Patient is awake, alert and oriented x3. Cranial nerves 2 through 12 are grossly intact. ASSESSMENT Syncopal Episode of unclear etiology, possible orthostatic changes secondary to cough Recent Covid 19 infection 6 weeks ago PLAN Continue cardiac monitoring for arrhythmias Obtain 2-D echocardiogram and Doppler study to assess cardiac structure and function Further recommendations to follow based upon clinical course Thank you kindly for this consultation. Nurse practitioner note has been reviewed, I agree with documented findings and plan of care. Patient was seen and examined. Past Medical History Past Medical History: Hypertension Additional Past Medical History / Comment(s): Migraines, lymphodema History of Any Multi-Drug Resistant Organisms: None Reported Past Surgical History: Uterine Ablation Additional Past Surgical History / Comment(s): gastric sleeve Past Psychological History: No Psychological Hx Reported Smoking Status: Never smoker Past Alcohol Use History: Rare Past Drug Use History: None Reported - Past Family History Mother Family Medical History: Chest Pain / Angina, Congestive Heart Failure (CHF), COPD, Diabetes Mellitus, Hypertension Father Family Medical History: Congestive Heart Failure (CHF), COPD, Coronary Artery Disease (CAD), Diabetes Mellitus, Hypertension, Renal Disease Sister(s) Family Medical History: No Reported History Brother(s) Family Medical History: No Reported History Son(s) Family Medical History: No Reported History Medications and Allergies Home Medications Medication Instructions Recorded Confirmed Type Sodium Chloride 5% Ophth Soln 2 drops BOTH EYES HS 12/13/20 06/25/21 History [Rosette 128] Albuterol Inhaler [Ventolin Hfa 2 puff INHALATION RT-Q4H PRN 06/25/21 06/25/21 History Inhaler] Fluticasone Nasal [place] [Flonase 1 spray EA NOSTRIL BID PRN 06/25/21 06/25/21 History Nasal [place]] Topiramate 50 mg PO BID 06/25/21 06/25/21 History Triamterene/Hydrochlorothiazid 1 tab PO DAILY 06/25/21 06/25/21 History [Triamterene-Hctz 37.5-25 mg Tb] Zinc 50 mg PO DAILY 06/25/21 06/25/21 History predniSONE [Deltasone] 20 mg PO DAILY 06/25/21 06/25/21 History Allergies Allergy/AdvReac Type Severity Reaction Status Date / Time aspirin Allergy Severe Swelling Verified 06/25/21 15:15 throat codeine Allergy Severe Swelling Verified 06/25/21 15:15 throat Penicillins Allergy Severe Swelling Verified 06/25/21 15:15 throat Physical Exam Vitals: Vital Signs Temp Pulse Pulse Pulse Resp BP BP 06/27/21 07:00 97.8 F 60 17 135/73 06/27/21 01:36 97.7 F 68 20 111/67 06/26/21 20:49 86 06/26/21 20:39 72 06/26/21 19:30 16 06/26/21 18:46 98.3 F 76 20 136/80 06/26/21 16:27 76 06/26/21 16:19 06/26/21 16:16 73 06/26/21 14:06 97.8 F 88 16 147/73 06/26/21 12:19 75 06/26/21 12:08 76 06/26/21 08:52 61 06/26/21 08:42 60 06/26/21 08:00 18 Pulse Ox 06/27/21 07:00 96 06/27/21 01:36 93 L 06/26/21 20:49 06/26/21 20:39 06/26/21 19:30 06/26/21 18:46 95 06/26/21 16:27 06/26/21 16:19 94 L 06/26/21 16:16 06/26/21 14:06 94 L 06/26/21 12:19 06/26/21 12:08 06/26/21 08:52 06/26/21 08:42 96 06/26/21 08:00 Intake and Output 06/26/21 06/27/21 06/27/21 22:59 06:59 14:59 Intake Total 118 Balance 118 Intake: Oral 118 Other: # Voids 2 3 # Bowel Movements 0 Results 06/25/21 15:02 06/26/21 14:56 Comprehensive Metabolic Panel 06/26/21 Range/Units 14:56 Sodium 135 L (137-145) mmol/L Potassium 4.3 (3.5-5.1) mmol/L Chloride 105 (98-107) mmol/L Carbon Dioxide 22 (22-30) mmol/L BUN 12 (7-17) mg/dL Creatinine 0.53 (0.52-1.04) mg/dL Glucose 238 H (74-99) mg/dL Calcium 9.2 (8.4-10.2) mg/dL Current Medications Generic Name Dose Route Start Last Admin Trade Name Freq PRN Reason Stop Dose Admin Albuterol/Ipratropium 3 ml 06/25/21 18:31 Ipratropium-Albuterol 3 Ml Neb INHALATION RT-Q4H PRN Shortness Of Breath Or Wheezing Albuterol/Ipratropium 3 ml 06/25/21 20:00 06/26/21 20:39 Ipratropium-Albuterol 3 Ml Neb INHALATION 3 ml RT-QID BRUNA Administration Azithromycin 500 mg 06/26/21 09:00 06/26/21 10:28 Azithromycin 500 Mg Tab PO 500 mg DAILY BRUNA Administration Fluticasone Propionate 1 spray 06/26/21 14:14 Fluticasone 50mcg/[place] Nasal 16gm EA NOSTRIL BID PRN Congestion Sodium Chloride 1,000 mls @ 75 mls/hr 06/25/21 18:45 06/26/21 19:17 Saline 0.9% IV 75 mls/hr .[id number] BRUNA Administration Methylprednisolone Sodium Succinate 60 mg 06/26/21 00:00 06/27/21 05:15 Methylprednisolone Sod Succi 125 Mg/2 Ml Vial IV 60 mg Q6HR BRUNA Administration Miscellaneous Information 1 each 06/26/21 14:16 Potassium Replacement Protocol 1 Each Misc MISCELLANE DAILY PRN Per Protocol Protocol Sodium Chloride 2 drops 06/26/21 21:00 06/26/21 19:15 Sodium Chloride 5% Ophth Drops 15 Ml Btl BOTH EYES 2 drops HS BRUNA Administration Topiramate 50 mg 06/26/21 21:00 06/26/21 19:15 Topiramate 25 Mg Tab PO 50 mg BID BRUNA Administration Triamterene/Hydrochlorothiazide 1 each 06/26/21 14:30 06/26/21 18:19 Triamterene-Hctz 37.5-25mg 1 Each Tab PO 1 each DAILY BRUNA Administration Zinc Sulfate 220 mg 06/26/21 14:30 06/26/21 18:14 Zinc Sulfate 220 Mg Cap PO Not Given DAILY BRUNA Intake and Output 06/26/21 06/27/21 06/27/21 22:59 06:59 14:59 Intake Total 118 Balance 118 Intake: Oral 118 Other: # Voids 2 3 # Bowel Movements 0 06/25/21 15:02 06/26/21 14:56
--- NOTE | 2021-06-27 12:24 | P.PN ---
Subjective Progress Note Date: 06/27/21 Principal diagnosis: Cough secondary to previous COVID-19, syncopal episode 50-year-old female presented to the hospital with past history of hypertension obesity no migraines completely bilious sleeve gastrectomy, COVID-19 infection 6 weeks ago patient presented with fatigue shortness of breath and apparent episode of syncope, in which patient states she woke up and felt someone pressing on her chest denies lightheadedness or dizziness is currently admitted for cardiac workup including enzymes and echocardiogram. Patient also currently being treated by pulmonary medicine with steroids and antibiotics for possible community-acquired pneumonia versus secondary infection resulting from previous Covid infection patient has had no evidence of PE pulse ox has been stable pro- calcitonin 0.05, lactic acid is 1.5 at this time and no evidence of acute pulmonary disease on chest x-ray. Objective - Vital Signs Vital signs: Vital Signs Temp 97.8 F 06/27/21 07:00 Pulse 76 06/27/21 12:08 Resp 17 06/27/21 07:00 BP 136/85 06/27/21 08:29 Pulse Ox 96 06/27/21 07:00 Intake & Output 06/26/21 06/27/21 06/27/21 18:59 06:59 18:59 Intake Total 354 Balance 354 Intake: Oral 354 Other: # Voids 3 3 1 # Bowel Movements 0 0 - Exam General: [Patient awake, alert and oriented times 3. Patient in no acute distress.] HEENT: [PERRL. EOMI. No pharyngeal erythema or exudate.] Neck: [No adenopathy.] Cardiac: [Heart regular in rate and rhythm. No S3. No S4. No clicks, rubs. No murmur.] Lungs: [Clear to auscultation bilaterally.] Abdomen: [No mass. No organomegaly. Bowel sounds presnt and normoactive in all 4 quadrants. Morbid obesity Extremes: [No edema no cyanosis no claudication normal pulses] : [] Musculoskeletal: [No joint erythema, edema or tenderness.] Skin: [No rash.] Neurologic: [No lateralizing deficits. CN II - XII grossly intact.] Lymphatic: [No adenopathy.] - Labs CBC & Chem 7: 06/25/21 15:02 06/26/21 14:56 Labs: Abnormal Lab Results - Last 24 Hours (Table) 06/26/21 Range/Units 14:56 Sodium 135 L (137-145) mmol/L Glucose 238 H (74-99) mg/dL Microbiology - Last 24 Hours (Table) 06/25/21 16:16 Blood Culture - Preliminary Blood No Growth after 24 hours 06/25/21 16:16 Blood Culture - Preliminary Blood No Growth after 24 hours Assessment and Plan (1) Post-COVID chronic cough Current Visit: Yes Status: Acute Code(s): R05.3 - CHRONIC COUGH; U09.9 - POS T COVID-19 CONDITION, UNSPECIFIED SNOMED Code(s): 2738722080 (2) Reactive airway disease Current Visit: Yes Status: Acute Code(s): J45.909 - UNSPECIFIED ASTHMA, UNCOMPLICATED SNOMED Code(s): 624024459161 (3) Syncope Current Visit: No Status: Acute Code(s): R55 - SYNCOPE AND COLLAPSE SNOMED Code(s): 835015797 Plan: Patient presented post Covid intense cough Syncopal episode witnessed in the emergency room Echocardiogram pending, study performed results pending Cardiology consultation noted Pulmonary consultation noted Time with Patient: Greater than 30
[2021-06-27] MEDS ORDERED: ALBUTEROL NEBULIZED 2.5 MG/3 ML INHALATION PRN (12:25)
--- NOTE | 2021-06-27 15:15 | P.PN ---
Subjective Progress Note Date: 06/27/21 Principal diagnosis: Shortness of breath This is a 50-year-old female patient who follows with Dr. Amador as her primary care provider. She has a history of hypertension, migraines, obesity with previous gastric sleeve. Remotr smoker. She was to be seen at our office yesterday but was having significant cough and shortness of breath during her PFT and was referred to the emergency room. She states she has been short of breath since having CoVID about 6 weeks ago. She was treated with Decadron and colchicine. She was not hospitalized at that time. She has no previous pulmonary symptoms or complaints. No history of asthma. No COPD. chest x-ray shows no acute pulmonary process. CAT scan revealed no central pulmonary embolism. white count 8.0. Hemoglobin 15.6. Platelets 309. Sodium 135. Potassium 4.3. Creatinine 0.53. Gracia virus by PCR not detected. Influenza screen negative. Troponin negative 1. ProBNP 37. She did have an brief episode of unresponsiveness and slumped in a chair in the emergency room and it CODE BLUE was called however called off shortly thereafter. She is seen today in consultation on the regular medical floor. She is awake and alert. She is still having complaints of shortness of breath and dry nonproductive cough. She is maintaining O2 saturations in the mid 90s on 2 L/m per nasal cannula. She's been afebrile. Hemodynamically stable. She had been initiated on IV Solu- Medrol, DuoNeb inhalations, antibiotics in the form of azithromycin. The patient is seen today 06/27/2021 in follow-up on the regular medical floor. She is currently sitting up at the chair at the bedside. Awake and alert in no acute distress. She is maintaining good O2 saturations in the 90s on 2 L/m per nasal cannula. She has 0.9 normal saline at 75 ML's per hour. Echocardiogram is pending. The cultures revealed no growth. Sodium 135. Potassium 4.3. Creatinine 0.53. Glucose 238. Pro-calcitonin 0.05. ProBNP level was 37. She is continued on DuoNeb inhalations, IV Solu-Medrol, empiric antibiotics in the form of azithromycin. Objective - Vital Signs Vital signs: Vital Signs Temp 97.8 F 06/27/21 13:49 Pulse 90 06/27/21 13:49 Resp 16 06/27/21 13:49 BP 129/72 06/27/21 13:49 Pulse Ox 92 L 06/27/21 13:49 Intake & Output 06/26/21 06/27/21 06/27/21 18:59 06:59 18:59 Intake Total 354 118 Balance 354 118 Intake: Oral 354 118 Other: # Voids 3 3 2 # Bowel Movements 0 0 1 - Exam GENERAL EXAM: Alert, acutely obese 50-year-old female patient, on 2 L nasal cannula, up in a chair, comfortable in no apparent distress. HEAD: Normocephalic. EYES: Normal reaction of pupils, equal size. NOSE: Clear with pink turbinates. THROAT: No erythema or exudates. NECK: No masses, no JVD. CHEST: No chest wall deformity. LUNGS: Equal air entry with no crackles, wheeze, rhonchi or dullness. CVS: S1 and S2 normal with no audible murmur, regular rhythm. ABDOMEN: No hepatosplenomegaly, normal bowel sounds, no guarding or rigidity. SPINE: No scoliosis or deformity SKIN: No rashes CENTRAL NERVOUS SYSTEM: No focal deficits, tone is normal in all 4 extremities. EXTREMITIES: There is no peripheral edema. No clubbing, no cyanosis. Peripheral pulses are intact. - Labs CBC & Chem 7: 06/25/21 15:02 06/26/21 14:56 Labs: Abnormal Lab Results - Last 24 Hours (Table) 06/26/21 Range/Units 14:56 Sodium 135 L (137-145) mmol/L Glucose 238 H (74-99) mg/dL Microbiology - Last 24 Hours (Table) 06/25/21 16:16 Blood Culture - Preliminary Blood No Growth after 24 hours 06/25/21 16:16 Blood Culture - Preliminary Blood No Growth after 24 hours Assessment and Plan Assessment: 1 Chronic cough and shortness of breath secondary to previous COVID-19 infection approximately 6 weeks ago. Patient is vaccinated. Treated with Decadron and colchicine in the outpatient setting. Chest x-ray reveals no acute pulmonary pro cess. 2 Hyperglycemia, steroid induced 3 History of obesity with previous gastric sleeve. Current BMI 41 kg/m 4 Hypertension Plan: The patient was seen and evaluated Stable and on 2 L nasal cannula Continue bronchodilators, steroids Pro-calcitonin 0.05 Antibiotics will be discontinued Wean off oxygen We will see as needed I, the cosigning physician, performed a history & physical examination of the patient. Lungs sounds are clear. Maintaining good O2 saturations in the 90s on 2 L/m per nasal cannula. I discussed the assessment and plan of care with my nurse practitioner, Nita Gomez. I attest to the above note as dictated by her. I have personally seen and examined the patient, performed the documentation and the assessment and plan as written. Number of minutes spent on the visit: 10.
[2021-06-27] MEDS: SODIUM CHLORIDE 5% OPHTH DROPS 15 ML BTL BOTH EYES SCH (19:58)
[2021-06-28] MEDS: methylPREDNISolone SOD SUCCI 125 MG/2 ML VIAL IV SCH ×4 (05:35→23:14)
[2021-06-28] MEDS: IPRATROPIUM-ALBUTEROL 3 ML NEB INHALATION SCH ×4 (07:19→20:25)
[2021-06-28] MEDS: ZINC SULFATE 220 MG CAP PO SCH (08:19)
[2021-06-28] MEDS: TRIAMTERENE-HCTZ 37.5-25MG 1 EACH TAB PO SCH (08:19)
[2021-06-28] MEDS: TOPIRAMATE 25 MG TAB PO SCH ×2 (08:19→21:28)
--- NOTE | 2021-06-28 10:02 | P.PN ---
Subjective Progress Note Date: 06/28/21 History of present illness: HISTORY OF PRESENT ILLNESS This is a 50-year-old female patient with past history of hypertension, migraines, obesity with previous gastric sleeve, COVID-19 infection 6 weeks ago. Patient states she is feeling tired and short of breath. She continues to have cough and hoarseness since Covid 19 infection. While in the emergency center yesterday, patient apparently had a brief episode of syncope. She states that she woke up and someone was pressing on her chest. She denies any lightheadedness or dizziness. Patient is seen on the observation unit. Echocardiogram is being obtained. EKG is sinus tachycardia at 100 bpm. Orthostatic vital signs are negative. in service coordinator has been negative for arrhythmias. CBC was unremarkable. Potassium was 3.4 and was replaced. Creatinine 0.62. Lactic acid 3.2 and repeat 1.5. Troponin negative. Rotavirus, influenza A, influenza B not detected. Pro-calcitonin 0.05. CT angiogram of the chest revealed no major or central pulmonary embolism with limitations. Pulmonary edema cannot be excluded. Increased cardiac size. Hepatic steatosis. Chest x-ray reveals no acute cardio pulmonary disease. Patient is followed by pulmonary medicine for chronic cough and shortness of breath. 06/28: Orthostatics were positive yesterday. Patient also had sister yesterday from chronic condition. She continues to have episodes of lightheadedness but no syncopal episodes. She states she has chest pain only when she coughs. No sputum production. She denies fever or chills. Echocardiogram revealed normal LV function. PHYSICAL EXAMINATION Gen: This is a a 50-year-old female. She is resting in bed and appears somewhat anxious. HEENT: Head is atraumatic, normocephalic. Pupils equal, round. Sclerae is anicteric. NECK: Supple. No JVD. No lymphadenopathy. No thyromegaly. LUNGS: Clear to auscultation. No wheezes or rhonchi. No intercostal retractions. Frequent coughing noted. HEART: Regular rate and rhythm. No murmur. ABDOMEN: Soft. Bowel sounds are present. No masses. No tenderness. EXTREMITIES: No pedal edema. No calf tenderness. NEUROLOGICAL: Patient is awake, alert and oriented x3. Cranial nerves 2 through 12 are grossly intact. ASSESSMENT Syncopal Episode of unclear etiology, possible orthostatic hypotension Recent Covid 19 infection 6 weeks ago PLAN Continue cardiac monitoring for arrhythmias Further recommendations to follow based upon clinical course Thank you kindly for this consultation. Nurse practitioner note has been reviewed, I agree with documented findings and plan of care. Patient was seen and examined. Objective - Vital Signs Vital signs: Vital Signs Temp 97.5 F L 06/28/21 07:00 Pulse 80 06/28/21 07:28 Resp 17 06/28/21 07:00 BP 172/94 06/28/21 07:00 Pulse Ox 96 06/28/21 07:00 Intake & Output 06/27/21 06/28/21 06/28/21 18:59 06:59 18:59 Intake Total 118 Balance 118 Intake: Oral 118 Other: # Voids 1 3 # Bowel Movements 1 - Labs CBC & Chem 7: 06/25/21 15:02 06/26/21 14:56 Labs: Microbiology - Last 24 Hours (Table) 06/25/21 16:16 Blood Culture - Preliminary Blood No Growth after 48 hours 06/25/21 16:16 Blood Culture - Preliminary Blood No Growth after 48 hours
[2021-06-28] MEDS: SODIUM CHLORIDE 0.9% 1,000 ML IV SCH (15:11)
--- NOTE | 2021-06-28 15:11 | P.PN ---
Subjective Progress Note Date: 06/28/21 Principal diagnosis: Cough secondary to previous COVID-19, syncopal episode 50-year-old female presented to the hospital with past history of hypertension obesity no migraines, sleeve gastrectomy secondary to obesity, COVID-19 infection 6 weeks ago patient presented with fatigue shortness of breath and apparent episode of syncope, in which patient states she woke up and felt s omeone pressing on her chest denies lightheadedness or dizziness is currently admitted for cardiac workup including enzymes and echocardiogram. Patient also currently being treated by pulmonary medicine with steroids and antibiotics for possible community-acquired pneumonia versus secondary infection resulting from previous Covid infection patient has had no evidence of PE pulse ox has been stable pro-calcitonin 0.05, lactic acid is 1.5 at this time and no evidence of acute pulmonary disease on chest x-ray. Objective - Vital Signs Vital signs: Vital Signs Temp 97.6 F 06/28/21 14:20 Pulse 86 06/28/21 11:31 Resp 16 06/28/21 14:20 BP 172/94 06/28/21 07:00 Pulse Ox 93 L 06/28/21 14:20 Intake & Output 06/27/21 06/28/21 06/28/21 18:59 06:59 18:59 Intake Total 118 358 Balance 118 358 Intake: Oral 118 358 Other: # Voids 1 3 1 # Bowel Movements 1 0 - Exam General: [Patient awake, alert and oriented times 3. Patient in no acute dist ress.] HEENT: [PERRL. EOMI. No pharyngeal erythema or exudate.] Neck: [No adenopathy.] Cardiac: [Heart regular in rate and rhythm. No S3. No S4. No clicks, rubs. No murmur.] Lungs: [Clear to auscultation bilaterally.] Abdomen: [No mass. No organomegaly. Bowel sounds presnt and normoactive in all 4 quadrants. Morbid obesity Extremes: [No edema no cyanosis no claudication normal pulses] : [] Musculoskeletal: [No joint erythema, edema or tenderness.] Skin: [No rash.] Neurologic: [No lateralizing deficits. CN II - XII grossly intact.] Lymphatic: [No adenopathy.] - Labs CBC & Chem 7: 06/25/21 15:02 06/26/21 14:56 Labs: Microbiology - Last 24 Hours (Table) 06/25/21 16:16 Blood Culture - Preliminary Blood No Growth after 48 hours 06/25/21 16:16 Blood Culture - Preliminary Blood No Growth after 48 hours Assessment and Plan (1) Post-COVID chronic cough Current Visit: Yes Status: Acute Code(s): R05.3 - CHRONIC COUGH; U09.9 - POST COVID-19 CONDITION, UNSPECIFIED SNOMED Code(s): 8530322081 (2) Reactive airway disease Current Visit: Yes Status: Acute Code(s): J45.909 - UNSPECIFIED ASTHMA, UNCOMPLICATED SNOMED Code(s): 681440519595 (3) Syncope Current Visit: No Status: Acute Code(s): R55 - SYNCOPE AND COLLAPSE SNOMED Code(s): 794787919 Plan: Patient presented post Covid intense cough Syncopal episode witnessed , etiology unknown Echocardiogram within normal limits Pulmonary consultation noted Time with Patient: Greater than 30
[2021-06-28] MEDS: SODIUM CHLORIDE 5% OPHTH DROPS 15 ML BTL BOTH EYES SCH (21:28)
[2021-06-28] MEDS: HYDROXYCHLOROQUINE SULFATE 200 MG TAB PO SCH (23:15)
[2021-06-29] MEDS: SODIUM CHLORIDE 0.9% 1,000 ML IV SCH ×2 (03:35→17:16)
[2021-06-29] MEDS: methylPREDNISolone SOD SUCCI 125 MG/2 ML VIAL IV SCH ×3 (05:33→17:58)
[2021-06-29] MEDS: IPRATROPIUM-ALBUTEROL 3 ML NEB INHALATION SCH ×4 (07:40→18:57)
[2021-06-29] MEDS: HYDROXYCHLOROQUINE SULFATE 200 MG TAB PO SCH ×2 (08:47→21:53)
[2021-06-29] MEDS: ZINC SULFATE 220 MG CAP PO SCH (08:48)
[2021-06-29] MEDS: TOPIRAMATE 25 MG TAB PO SCH ×2 (08:48→21:53)
[2021-06-29] MEDS: TRIAMTERENE-HCTZ 37.5-25MG 1 EACH TAB PO SCH (08:48)
--- NOTE | 2021-06-29 13:07 | P.PN ---
Subjective This is a 50-year-old female patient with past history of hypertension, migraines, obesity with previous gastric sleeve, COVID-19 infection 6 weeks ago. She does not follow with a internal medicine doctor. We have been consulted for syncope. Patient presents emergency department with complaints of feeling tired and shortness of breath, cough, hoarseness since Covid 19 infection. While in the emergency center on 06/26/20 patient apparently had a brief episode of syncope. She states that she woke up and someone was pressing on her chest. She denies any lightheadedness or dizziness. EKG is sinus tachycardia at 100 bpm, no acute ST-T wave abnormalities. Orthostatic vital signs are negative. night time nanny has been negative for arrhythmias. Troponin negative. Rotavirus, influenza A, influenza B not detected. CT angiogram of the chest revealed no major or central pulmonary embolism with limitations. Pulmonary edema cannot be excluded. Increased cardiac size. Hepatic steatosis. Chest x-ray reveals no acute cardio pulmonary disease. 06/29/2021 Patient seen and examined at bedside, patient continues to have significant shortness of breath. Denies chest pain, lightheadedness, dizziness, syncope. Telemetry reviewed patient in sinus mechanism heart rate 5580s, no arrhythmia noted. She is currently maintained on dual, Flonase, Plaquenil, IV steroids, IV fluids, Topamax, Maxzide PHYSICAL EXAMINATION Gen: This is a a 50-year-old female. She is resting in bed and appears to be comfortable and in no acute distress. Blood pressure 169/91, heart rate 61, afebrile, oxygen saturation is 97% on 2 L nasal cannula GENERAL: Well-appearing, well-nourished and in no acute distress. NECK: Supple without JVD or thyromegaly. LUNGS: Breath sounds clear to auscultation bilaterally. Respiration equal and unlabored. No wheezes, rales or rhonchi. HEART: Regular rate and rhythm without murmurs, rubs or gallops. S1 and S2 heard. EXTREMITIES: Normal range of motion, no edema. No clubbing or cyanosis. Per ipheral pulses intact. ASSESSMENT Shortness of breath Syncopal Episode of unclear etiology, possibly vasovagal Recent Covid 19 infection 6 weeks ago History of hypertension History of migraines PLAN From a cardiology perspective, no cardiac etiology for syncope seen at this time. Telemetry reviewed with no acute findings, orthostatics negative. She continues to experience shortness of breath. Echocardiogram ordered will follow up on results. Nurse practitioner note has been reviewed, I agree with documented findings and plan of care. Patient was seen and examined. Objective - Vital Signs Vital signs: Vital Signs Temp 98.0 F 06/29/21 08:00 Pulse 61 06/29/21 08:00 Resp 16 06/29/21 08:00 BP 169/91 06/29/21 08:00 Pulse Ox 97 06/29/21 08:00 Intake & Output 06/28/21 06/29/21 06/29/21 18:59 06:59 18:59 Intake Total 476 240 Balance 476 240 Intake: Oral 476 240 Other: # Voids 1 2 # Bowel Movements 0 - Labs CBC & Chem 7: 06/25/21 15:02 06/26/21 14:56 Labs: Microbiology - Last 24 Hours (Table) 06/25/21 16:16 Blood Culture - Preliminary Blood No Growth after 72 hours 06/25/21 16:16 Blood Culture - Preliminary Blood No Growth after 72 hours
--- NOTE | 2021-06-29 13:37 | P.PN ---
Subjective This is a 50-year-old white female well known to me. She has been experiencing post Covid syndrome with shortness of breath and cough for the past four weeks. She's been seen in the office and treated with antibiotics and steroids on several occasions. She's most recently referred pulmonology, but due to a loss of consciousness, presented to the emergency room and it's been hospitalized.Cardiology are following and do not believe her syncope is cardiac in nature. Pulmonology are following. The recommendations are pending. Patient remains afebrile,Heart rate remains controlled blood pressure is normal, orthostatic's appear normal, she remains at 97% on 2 L of oxygen. Laboratory studies today showed normal electrolytes the exception with glucose at 2:38. Initial elevated plasma lack acid no normalized. blood cultures have remain negative The patient complains of ongoing cough and shortness of breath. Objective - Vital Signs Vital signs: Vital Signs Temp 98.0 F 06/29/21 08:00 Pulse 80 06/29/21 12:35 Resp 16 06/29/21 08:00 BP 157/101 06/29/21 12:35 Pulse Ox 96 06/29/21 12:35 Intake & Output 06/28/21 06/29/21 06/29/21 18:59 06:59 18:59 Intake Total 476 240 Balance 476 240 Intake: Oral 476 240 Other: # Voids 1 2 # Bowel Movements 0 - Exam General: The patient is awake and alert, in minimal distress,She's more than the ob Neck: The neck is supple, there is no thyromegaly, lymphadenopathy, tenderness or JVD.Cardiovascular: S1S2 is normal, There is a regular rate and rhythm. No murmur, rub or gallop is appreciated. Respiratory: Lungs are coarse to auscultation bilaterally, respirations are minimally labored, breath sounds are equal. Gastrointestinal: Soft, non-distended, without masses or organomegaly noted. There is no rebound or guarding present. Bowel sounds are unremarkable. non tender to midepigastric palpation Musculoskeletal: Normal ROM, no tenderness, There is no pedal edema. There is no calf tenderness or swelling. No cords were appreciated. Neurological: CN II-XII intact, there are no obvious motor or sensory deficits. Coordination appears grossly intact. Speech is normal.he is awake alert and oriented 3 today. Skin: Skin is warm and dry and no rashes, - Labs CBC & Chem 7: 06/25/21 15:02 06/26/21 14:56 Labs: Microbiology - Last 24 Hours (Table) 06/25/21 16:16 Blood Culture - Preliminary Blood No Growth after 72 hours 06/25/21 16:16 Blood Culture - Preliminary Blood No Growth after 72 hours Assessment and Plan (1) Syncope Current Visit: Yes Status: Acute Code(s): R55 - SYNCOPE AND COLLAPSE SNOMED Code(s): 007141462 (2) Morbid obesity Current Visit: Yes Status: Acute Code(s): E66.01 - MORBID (SEVERE) OBESITY DUE TO EXCESS CALORIES SNOMED Code(s): 374140362 (3) H/O bariatric surgery Current Visit: Yes Status: Acute Code(s): Z98.84 - BARIATRIC SURGERY STATUS SNOMED Code(s): 366832426 (4) Post-COVID chronic cough Current Visit: Yes Status: Acute Code(s): R05.3 - CHRONIC COUGH; U09.9 - POST COVID-19 CONDITION, UNSPECIFIED SNOMED Code(s): 9991799114 (5) Reactive airway disease Current Visit: Yes Status: Acute Code(s): J45.909 - UNSPECIFIED ASTHMA, UNCOMPLICATED SNOMED Code(s): 026614296490 (6) Syncope Current Visit: No Status: Acute Code(s): R55 - SYNCOPE AND COLLAPSE SNOMED Code(s): 401952648 Plan: I will await the upcoming echo order by cardiology.Wait on recommendations from pulmonology.Repeat labs in a.m.She will be reevaluated in the next 24 hours.
--- NOTE | 2021-06-29 16:34 | P.PN ---
Subjective Progress Note Date: 06/29/21 Principal diagnosis: Post viral cough This is a 50-year-old female patient who follows with Dr. Amador as her primary care provider. She has a history of hypertension, migraines, obesity with previous gastric sleeve. Remotr smoker. She was to be seen at our office yesterday but was having significant cough and shortness of breath during her PFT and was referred to the emergency room. She states she has been short of breath since having CoVID about 6 weeks ago. She was treated with Decadron and colchicine. She was not hospitalized at that time. She has no previous p ulmonary symptoms or complaints. No history of asthma. No COPD. chest x-ray shows no acute pulmonary process. CAT scan revealed no central pulmonary embolism. white count 8.0. Hemoglobin 15.6. Platelets 309. Sodium 135. Potassium 4.3. Creatinine 0.53. Gracia virus by PCR not detected. Influenza screen negative. Troponin negative 1. ProBNP 37. She did have an brief episode of unresponsiveness and slumped in a chair in the emergency room and it CODE BLUE was called however called off shortly thereafter. She is seen today in consultation on the regular medical floor. She is awake and alert. She is still having complaints of shortness of breath and dry nonproductive cough. She is maintaining O2 saturations in the mid 90s on 2 L/m per nasal cannula. She's been afebrile. Hemodynamically stable. She had been initiated on IV Solu- Medrol, DuoNeb inhalations, antibiotics in the form of azithromycin. The patient is seen today 06/27/2021 in follow-up on the regular medical floor. She is currently sitting up at the chair at the bedside. Awake and alert in no acute distress. She is maintaining good O2 saturations in the 90s on 2 L/m per nasal cannula. She has 0.9 normal saline at 75 ML's per hour. Echocardiogram is pending. The cultures revealed no growth. Sodium 135. Potassium 4.3. Creatinine 0.53. Glucose 238. Pro-calcitonin 0.05. ProBNP level was 37. She is continued on DuoNeb inhalations, IV Solu-Medrol, empiric antibiotics in the form of azithromycin. Patient was reevaluated today on 06/29/2021, patient is complaining of persistent cough. And occasional congestion, patient had relatively unremarkable chest x- ray and CT angiogram of the chest. Her pro-calcitonin level is normal. Her BNP level was normal. Hence I came back and saw the patient today, felt that the patient has mostly post viral cough, and I have recommended that the patient cou ld be discharged home on prednisone 40 mg tapered over the next 21 days. No need for bronchoscopy as it may actually worsen her cough, patient is not having any difficulty clearing her secretions. And she does have occasional wheezing. No symptoms of GERD, no symptoms of ALLERGIC rhinitis and postnasal drip. Electrolytes are normal. CT angiogram from 06/25 showed no evidence of pulmonary embolism. Objective - Vital Signs Vital signs: Vital Signs Temp 98.1 F 06/29/21 14:55 Pulse 78 06/29/21 15:32 Resp 16 06/29/21 14:55 BP 133/76 06/29/21 14:55 Pulse Ox 96 06/29/21 14:55 Intake & Output 06/28/21 06/29/21 06/29/21 18:59 06:59 18:59 Intake Total 476 480 Balance 476 480 Intake: Oral 476 480 Other: # Voids 1 2 4 # Bowel Movements 0 1 - Exam Physical Exam revealed 50-year-old female in no distress. Head: Atraumatic, normocephalic. HEENT:[Neck is supple.] [No neck masses.] [No thyromegaly.] [No JVD.] Chest: [Managed breath sounds at the bases, occasional wheezing on forced expiratory maneuver only. Cardiac Exam: [Normal S1 and S2, no S3 gallop, no murmur.] Abdomen: [Soft, nontender, no megaly, no rebound, no guarding, normal bowel sounds.] Extremities: [No clubbing, no edema, no cyanosis.] Neurological Exam: [No focal neurologic deficit.] Alert oriented 3. Psychiatric: Normal mood affect and normal mental status examination. Skin: No rashes. - Labs CBC & Chem 7: 06/25/21 15:02 06/26/21 14:56 Labs: Microbiology - Last 24 Hours (Table) 06/25/21 16:16 Blood Culture - Preliminary Blood No Growth after 72 hours 06/25/21 16:16 Blood Culture - Preliminary Blood No Growth after 72 hours Assessment and Plan Assessment: Impression: Postviral cough patient had COVID-19 infection and pneumonia about 6 weeks ago. Treated with Decadron and colchicine in outpatient setting. Steroids induced hyperglycemia. Obesity, current BMI is 41, patient had previous gastric sleeve. Benign essential hypertension. Recommendation: Transition patient to prednisone 40 mg daily tapered over 21 days. Cough suppression medication in the form of Tessalon. Cleared to be discharged home on follow-up on outpatient basis with Dr. Gomez or Dr. Beck Time with Patient: Less than 30
[2021-06-29 17:15] LABS: Glucose,Whole Blood 218 mg/dL (75-99)
[2021-06-29] MEDS: INSULIN ASPART (NovoLOG) 100 UNIT/ML VIAL SQ SCH ×2 (17:57→21:52)
[2021-06-29] MEDS: BENZONATATE 100 MG CAP PO SCH ×2 (17:57→21:53)
[2021-06-29 20:13] LABS: Glucose,Whole Blood 265 mg/dL (75-99)
[2021-06-29] MEDS: SODIUM CHLORIDE 5% OPHTH DROPS 15 ML BTL BOTH EYES SCH (21:55)
[2021-06-30] MEDS ORDERED: INSULIN ASPART (NovoLOG) 100 UNIT/ML VIAL SQ ONE (00:13)
[2021-06-30 00:27] LABS: Glucose,Whole Blood 177 mg/dL (75-99)
[2021-06-30] MEDS: methylPREDNISolone SOD SUCCI 125 MG/2 ML VIAL IV SCH ×3 (00:27→12:39)
[2021-06-30] MEDS: SODIUM CHLORIDE 0.9% 1,000 ML IV SCH (05:10)
[2021-06-30 07:18] LABS: Glucose,Whole Blood 183 mg/dL (75-99)
[2021-06-30 07:33] VITALS: BP 152/89; TEMP 62
[2021-06-30] MEDS: INSULIN ASPART (NovoLOG) 100 UNIT/ML VIAL SQ SCH ×2 (08:17→12:39)
[2021-06-30] MEDS: BENZONATATE 100 MG CAP PO SCH (08:18)
[2021-06-30] MEDS: TOPIRAMATE 25 MG TAB PO SCH (08:18)
[2021-06-30] MEDS: HYDROXYCHLOROQUINE SULFATE 200 MG TAB PO SCH (08:18)
[2021-06-30] MEDS: ZINC SULFATE 220 MG CAP PO SCH (08:18)
[2021-06-30] MEDS: TRIAMTERENE-HCTZ 37.5-25MG 1 EACH TAB PO SCH (08:18)
[2021-06-30] MEDS: IPRATROPIUM-ALBUTEROL 3 ML NEB INHALATION SCH ×2 (08:32→12:03)
--- NOTE | 2021-06-30 09:27 | P.PN ---
Subjective This is a 50-year-old female patient with past history of hypertension, migraines, obesity with previous gastric sleeve, COVID-19 infection 6 weeks ago. She does not follow with a circus trainer. We have been consulted for syncope. Patient presents emergency department with complaints of feeling tired and shortness of breath, cough, hoarseness since Covid 19 infection. While in the emergency center on 06/26/20 patient apparently had a brief episode of syncope. She states that she woke up and someone was pressing on her chest. She denies any lightheadedness or dizziness. EKG is sinus tachycardia at 100 bpm, no acute ST-T wave abnormalities. Orthostatic vital signs are negative. auto washer has been negative for arrhythmias. Troponin negative. Rotavirus, influenza A, influenza B not detected. CT angiogram of the chest revealed no major or central pulmonary embolism with limitations. Pulmonary edema cannot be excluded. Increased cardiac size. Hepatic steatosis. Chest x-ray reveals no acute cardio pulmonary disease. 06/30/2021 Patient seen and examined at bedside, patient's breathing has slightly improved, continues to have symptoms of shortness of breath, she continues to have dry cough. Denies chest pain, lightheadedness, dizziness, syncope. Telemetry reviewed patient in sinus mechanism heart rate 70s80s, With episodes of sinus tachycardia, likely due to steroids and nebulizers, no arrhythmia noted. She is currently maintained on dual, Flonase, Plaquenil, IV steroids, IV fluids, T opamax, Maxzide. Orthostatic vital signs negative. Echocardiogram revealed an EF greater than 55%, no significant wall motion abnormalities, mild mitral regurgitation, mild tricuspid regurgitation PHYSICAL EXAMINATION Gen: This is a a 50-year-old female. She is resting in bed and appea rs to be comfortable and in no acute distress. Blood pressure 152/89, heart rate 62, afebrile, oxygen saturation is 97% on 2 L nasal cannula GENERAL: Well-appearing, well-nourished and in no acute distress. NECK: Supple without JVD or thyromegaly. LUNGS: Breath sounds diminished with bilateral wheezes to auscultation bilaterally. Respiration equal and unlabored. HEART: Regular rate and rhythm without murmurs, rubs or gallops. S1 and S2 heard. EXTREMITIES: Normal range of motion, no edema. No clubbing or cyanosis. Peripheral pulses intact. ASSESSMENT Shortness of breath Syncopal Episode of unclear etiology, possibly vasovagal Recent Covid 19 infection 6 weeks ago History of hypertension History of migraines PLAN From a cardiology perspective, no cardiac etiology for syncope seen at this time. Telemetry reviewed with no acute findings, episodes of sinus tachycardia, likely due to increase steroids and nebulizer treatments, orthostatics negative. Echocardiogram revealed an EF greater than 55%, no significant wall motion abnormalities, mild mitral regurgitation, mild tricuspid regurgitation. From a cardiology perspective, no further inpatient treatment at this time. We will fo llow the patient as needed. Okay to discharge per primary team and pulmonary service. Nurse practitioner note has been reviewed, I agree with documented findings and plan of care. Patient was seen and examined. Objective - Vital Signs Vital signs: Vital Signs Temp 62 F L 06/30/21 07:00 Pulse 77 06/30/21 08:43 Resp 18 06/30/21 07:00 BP 152/89 06/30/21 07:00 Pulse Ox 97 06/30/21 08:32 Intake & Output 06/29/21 06/30/21 06/30/21 18:59 06:59 18:59 Intake Total 598 240 Balance 598 240 Intake: Oral 598 240 Other: Voiding Method Toilet # Voids 4 1 # Bowel Movements 1 - Labs CBC & Chem 7: 06/25/21 15:02 06/26/21 14:56 Labs: Abnormal Lab Results - Last 24 Hours (Table) 06/29/21 06/29/21 06/30/21 Range/Units 17:14 20:11 00:25 POC Glucose (mg/dL) 218 H 265 H 177 H (75-99) mg/dL 06/30/21 Range/Units 07:12 POC Glucose (mg/dL) 183 H (75-99) mg/dL Microbiology - Last 24 Hours (Table) 06/25/21 16:16 Blood Culture - Preliminary Blood No Growth after 96 hours 06/25/21 16:16 Blood Culture - Preliminary Blood No Growth after 96 hours
[2021-06-30 10:09] VITALS: RESP 20
[2021-06-30 11:13] LABS: Basophils # (A) 0.04 X 10*3/uL (0.00-0.10); Basophils % (A) 0.4 %; Eosinophils # (A) 0 X 10*3/uL (0.04-0.35); Eosinophils % (A) 0 %; HCT 41.2 % (37.2-46.3); HGB 14.2 g/dL (12.0-15.0); Lymphocytes # (A) 1.03 X 10*3/uL (0.90-5.00); Lymphocytes % (A) 9.3 %; MCH 29.6 pg (27.0-32.0); MCHC 34.5 g/dL (32.0-37.0); MCV 85.8 fL (80.0-97.0); Mean Platelet Volume 10.4 fL (9.5-12.2); Monocytes # (A) 0.34 X 10*3/uL (0.20-1.00); Monocytes % (A) 3.1 %; NRBC Per 100 WBC 0.2 /100 WBCS (0.0-0.0); Neutrophils # (A) 9.14 X 10*3/uL (1.80-7.70); Neutrophils % (A) 82.2 %; Platelet Count 234 X 10*3/uL (140-440); RDW 12.4 % (11.5-14.5); WBC 11.11 X 10*3/uL (4.50-10.00)
--- NOTE | 2021-06-30 12:14 | ECHOF ---
Referral Reason:Near syncope, LV fx MEASUREMENTS -------- HEIGHT: 157.5 cm WEIGHT: 101.6 kg BP: RVIDd: 3.5 cm (< 3.3) IVSd: 1.1 cm (0.6 - 1.1) LVIDd: 4.3 cm (3.9 - 5.3) LVPWd: 1.1 cm (0.6 - 1.1) IVSs: 1.6 cm LVIDs: 3.0 cm LVPWs: 1.2 cm Ao Diam: 3.3 cm (2.0 - 3.7) AV Cusp: 1.9 cm (1.5 - 2.6) LA Diam: 3.9 cm (2.7 - 3.8) MV EXCURSION: 24.989 mm (> 18.000) MV EF SLOPE: 91 mm/s (70 - 150) EPSS: 0.3 cm MV E Jonathan: 0.73 m/s MV DecT: 213 ms MV A Jonathan: 0.59 m/s MV E/A Ratio: 1.24 RAP: 5.00 mmHg RVSP: 22.66 mmHg FINDINGS -------- Sinus rhythm. This was a techncally difficult study with suboptimal views, , Lumason utilized for enhancement of im ages. LV size, wall thickness and systolic function are normal, with an EF greater than 55%. The left ron tricular size is normal. The right ventricle is mild to moderately enlarged. The left atrial size is normal. The right atrial size is normal. The aortic valve is trileaflet, and appears structurally normal. No aortic stenosis or regurgitation. Mild mitral regurgitation is present. Mild tricuspid regurgitation present. There is no evidence of pulmonary hypertension. The right v entricular systolic pressure, as measured by Doppler, is 22.66mmHg. There is no pulmonic regurgitation present. Echo free space represents a pericardial fat pad. There is a trivial pericardial effusion present. CONCLUSIONS -------- 1. This was a techncally difficult study with suboptimal views, , Lumason utilized for enhancement of images. 2. LV size, wall thickness and systolic function are normal, with an EF greater than 55%. 3. The left ventricular size is normal. 4. The right ventricle is mild to moderately enlarged. 5. The left atrial size is normal. 6. The right atrial size is normal. 7. The aortic valve is trileaflet, and appears structurally normal. No aortic stenosis or regurgitati on. 8. Mild mitral regurgitation is present. 9. Mild tricuspid regurgitation present. 10. There is no evidence of pulmonary hypertension. 11. The right ventricular systolic pressure, as measured by Doppler, is 22.66mmHg. 12. Echo free space represents a pericardial fat pad. 13. There is a trivial pericardial effusion present. PRESALES SENIOR SPECIALIST: Jo Ann Clayton RDCS
[2021-06-30 12:17] VITALS: PULSE 91
[2021-06-30 12:28] LABS: Glucose,Whole Blood 172 mg/dL (75-99)
[2021-06-30 12:59] LABS: African American GFR (CKD) 115.5 (60.0-200.0); Albumin 3.9 g/dL (3.8-4.9); Albumin/Globulin Ratio 2.05 (1.60-3.17); Anion Gap 13.7 mmol/L (10.00-18.00); BUN/Creat Ratio 27.43 Ratio (12.00-20.00); Blood Urea Nitrogen 19.2 mg/dL (9.0-27.0); Calcium 8.8 mg/dL (8.7-10.3); Carbon Dioxide 21.3 mmol/L (20.0-27.5); Globulin 1.9 g/dL (1.6-3.3); Magnesium 2.5 mg/dL (1.5-2.4); Non-African American GFR(CKD) 99.6 (60.0-200.0); Potassium 4.1 mmol/L (3.5-5.5); Total Bilirubin 0.2 mg/dL (0.30-1.20); Total Protein 5.8 g/dL (6.2-8.2)
== END 2021-06-30 15:18 | disposition home health service (06) | DRG 204 ==
LOC: EC 14:11 → 6NMEDSUR 18:31 → OBSVTOIN 06-27 14:18
PROVIDERS: ADMIT Family Medicine; ATTEND Family Medicine
DX: R05.3 Chronic cough (principal); J96.00 Acute respiratory failure, unspecified whether with hypoxia or hypercapnia; Z68.41 Body mass index [BMI] 40.0-44.9, adult; E87.2 Acidosis; J98.11 Atelectasis; J45.909 Unspecified asthma, uncomplicated; Z20.822 Contact with and (suspected) exposure to COVID-19; E66.01 Morbid (severe) obesity due to excess calories; U09.9 Post COVID-19 condition, unspecified; R73.9 Hyperglycemia, unspecified; R55 Syncope and collapse; F17.200 Nicotine dependence, unspecified, uncomplicated; I10 Essential (primary) hypertension; G43.909 Migraine, unspecified, not intractable, without status migrainosus; E87.6 Hypokalemia; T38.0X5A Adverse effect of glucocorticoids and synthetic analogues, initial encounter; Z79.899 Other long term (current) drug therapy; Z98.84 Bariatric surgery status; Z83.3 Family history of diabetes mellitus; Z82.5 Family history of asthma and other chronic lower respiratory diseases; Z82.49 Family history of ischemic heart disease and other diseases of the circulatory system; Z88.6 Allergy status to analgesic agent; Z88.5 Allergy status to narcotic agent; Z88.0 Allergy status to penicillin
CPT/HCPCS: 36415; 71045; 71275; 80048; 80053; 83605; 83735; 83880; 84145; 84484; 85025; 85610; 85730; 87040; 87502; 87635; 93005; 93306; 94640; 94760; 96374; 99285

== ENCOUNTER → 2021-07-22 | Outpatient (CLI) | payer BC ==
--- NOTE | 2021-07-22 15:29 | CT ---
EXAMINATION TYPE: CT angio chest DATE OF EXAM: 07/22/2021 COMPARISON: CT angiogram 06/25/2021 HISTORY: SOB CT DLP: 535 mGycm Automated exposure control for dose reduction was used. CONTRAST: CTA scan of the thorax is performed with IV Contrast, patient injected with 60cc mL of Isovue 370, pu lmonary embolism protocol. MIP images are created and reviewed. 3D reconstructed images are created on an independent workstation and reviewed. FINDINGS: LUNGS: The lungs are stable showing some groundglass opacity at the lung bases possibly related to ed fanta, atelectasis, difficult to exclude early pneumonia, there is no concerning parenchymal mass or no dule identified. There is no pleural effusion or pneumothorax seen. The tracheobronchial tree is p atent. AORTA: No additional significant abnormality is seen. MEDIASTINUM: There is satisfactory enhancement of the pulmonary artery and its branches, there is no CT evidence for pulmonary embolism. There are no greater than 1 cm hilar or mediastinal lymph nodes. No pericardial effusion is seen. Coronary artery calcification is present. OTHER: Thyroid nodule is again seen in the midline. Low density within the liver likely due to hepat ic steatosis. Postop changes in the stomach.. IMPRESSION: NO EVIDENT PULMONARY EMBOLUS. CONSIDER RESTRICTIVE LUNG DISEASE. POSTOP CHANGE. HEPATIC STEATOSIS. CO RONARY ARTERY DISEASE. ADDITIONAL FINDINGS ABOVE.
== END | disposition home or self-care (01) ==
LOC: RADCTMAIN 14:11
PROVIDERS: ATTEND Internal Medicine
DX: I25.10 Atherosclerotic heart disease of native coronary artery without angina pectoris (principal); K76.0 Fatty (change of) liver, not elsewhere classified; E04.1 Nontoxic single thyroid nodule; R91.8 Other nonspecific abnormal finding of lung field
CPT/HCPCS: 71275; Q9967

== ENCOUNTER → 2021-10-07 | Outpatient (CLI) | payer BC ==
--- NOTE | 2021-10-07 13:46 | US ---
EXAMINATION TYPE: US thyroid st tissue head/neck DATE OF EXAM: 10/07/2021 COMPARISON: CT CLINICAL HISTORY: E04.1 NONTOXIC SINGLE THYROID NODULE. Nodule. GLAND SIZE: Right Lobe: 5.0 x 1.5 x 1.0 cm Overall Parenchyma: heterogenous Left Lobe: 4.4 x 1.3 x 1.0 cm Overall Parenchyma: heterogeneous Isthmus Thickness: 0.29 cm NODULES RIGHT: # of nodules measured on right: 0 LEFT: # of nodules measured on left: 2 1. 1.4 X 0.9 x 0.8 cm, mid mid, solid or almost completely solid, hypoechoic nodule, which is wider than tall, with smooth margins, with echogenic foci. Prior size: No prior 2. 1.0 X 0.7 x 0.7 cm, lower mid-lateral, solid or almost completely solid, hypoechoic nodule, whi ch is as wide as it is tall, with smooth margins, with echogenic foci. Prior size: No prior ISTHMUS: # of nodules measured in the isthmus: 1 1. Difficult to scan: 2.3 X 1.9 x 1.3 cm mixed cystic and solid, hypoechoic nodule, which is wider than tall, with ill-defined margins, without echogenic foci. Prior size: No prior US Bilateral neck scanned, no evidence of lymphadenopathy. IMPRESSION: 1. Thyromegaly correlate for thyroiditis. 2. Bilateral thyroid nodules with the largest nodule measuring 2.3 cm on the left. This corresponds t o a TR rads3 nodule. This nodule is recommended for FNA. 3. 1.4 cm and 1.0 cm nodules correspond to TR-RADS 4 nodule. 2017 ACR TI-RADS LEVEL: TR-RADS 3 - Mildly Suspicious: Follow if > 1.5 cm, FNA if > 2.5 cm *Highest TI-RADS level nodule reported
[2021-10-07 19:00] LABS: T4, Free (Free Thyroxine) 1.18 ng/dL (0.800-1.800)
== END | disposition home or self-care (01) ==
LOC: RADUSWWP 12:07
PROVIDERS: ATTEND Otolaryngology
DX: E04.2 Nontoxic multinodular goiter (principal)
CPT/HCPCS: 76536; 84439; 84443

== ENCOUNTER 2021-11-02 12:35 | Day surgery (SDC) | payer BC ==
[2021-11-02 13:16] VITALS: RESP 16; TEMP 97.6
[2021-11-02] MEDS ORDERED: ALPRAZolam 0.5 MG TAB PO STA (13:17)
[2021-11-02 13:31] LABS: Glucose,Whole Blood 102 mg/dL (70-110)
--- NOTE | 2021-11-02 14:25 | US ---
ULTRASOUND GUIDED FNA THYROID BIOPSY: CLINICAL HISTORY: 2.3 cm thyroid nodule FINDINGS: The procedure was explained to the patient. The risks, complications, benefits and alternatives were discussed and any questions were answered. Informed consent was obtained. Patient was placed supin e on the ultrasound table and prepped and draped in the usual sterile fashion. Utilizing a 25 gauge needle, five passes were made into the requested 2.3 cm thyroid nodule. Patient was stable throughout the procedure. Pathology is pending. All elements of maximal barrier technique were utilized. IMPRESSION: 1. Successful ultrasound guided FNA thyroid biopsy.
[2021-11-02 14:29] VITALS: BP 144/91; PULSE 69
== END 2021-11-02 14:35 | disposition home or self-care (01) ==
LOC: RADPROMAIN 12:35
PROVIDERS: ATTEND Otolaryngology
DX: E04.1 Nontoxic single thyroid nodule (principal); Z88.6 Allergy status to analgesic agent; Z88.5 Allergy status to narcotic agent; Z88.0 Allergy status to penicillin
CPT/HCPCS: 10005; 88173; 88305

== ENCOUNTER 2022-02-16 13:56 | Observation (INO) | payer BC ==
[2022-02-16 15:17] LABS: ALT 46 U/L (4-34); AST 40 U/L (14-36); African American GFR (CKD) >90 (>60 ml/min/1.73 sqM); Albumin 4.8 g/dL (3.5-5.0); Alkaline Phosphatase 72 U/L (38-126); Anion Gap 16 mmol/L; Blood Urea Nitrogen 19 mg/dL (7-17); Calcium 9.9 mg/dL (8.4-10.2); Carbon Dioxide 22 mmol/L (22-30); Chloride 99 mmol/L (98-107); Glucose 114 mg/dL (74-99); Lipase 393 U/L (23-300); Non-African American GFR(CKD) >90 (>60 ml/min/1.73 sqM); Sodium 137 mmol/L (137-145); Total Bilirubin 0.5 mg/dL (0.2-1.3); Total Protein 7.1 g/dL (6.3-8.2)
[2022-02-16 15:28] LABS: Basophils # (A) 0.1 k/uL (0-0.2); Basophils % (A) 1 %; Eosinophils # (A) 0.1 k/uL (0-0.7); Eosinophils % (A) 1 %; HCT 43.6 % (34.0-46.0); HGB 15.4 gm/dL (11.4-16.0); Lymphocytes # (A) 2.6 k/uL (1.0-4.8); Lymphocytes % (A) 38 %; MCH 30.1 pg (25.0-35.0); MCHC 35.3 g/dL (31.0-37.0); MCV 85.2 fL (80.0-100.0); Mean Platelet Volume 8.5; Monocytes # (A) 0.4 k/uL (0-1.0); Monocytes % (A) 6 %; Neutrophils # (A) 3.6 k/uL (1.3-7.7); Neutrophils % (A) 52 %; Platelet Count 224 k/uL (150-450); RBC 5.11 m/uL (3.80-5.40); RDW 12.7 % (11.5-15.5); WBC 6.9 k/uL (3.8-10.6)
[2022-02-16 15:43] LABS: Partial Thromboplastin Time 22.2 sec (22.0-30.0); Prothrombin Time 10.7 sec (9.0-12.0)
[2022-02-16 16:42] LABS: T4, Free (Free Thyroxine) 1.19 ng/dL (0.78-2.19)
[2022-02-16] MEDS ORDERED: KETOROLAC 15 MG/ML 1 ML VIAL IVP STA (17:55)
[2022-02-16] MEDS ORDERED: SODIUM CHLORIDE 0.9% 1,000 ML IV ONE (18:35)
--- NOTE | 2022-02-16 18:35 | ED ---
General Adult HPI - General Chief complaint: GI Bleed Stated complaint: Back pain/Blood In stool Time Seen by Provider: 02/16/22 17:14 Source: patient, RN notes reviewed, old records reviewed Mode of arrival: ambulatory Limitations: no limitations - History of Present Illness Initial comments: This is a 51-year-old female presents emergency Department complaining of some left-sided lower back pain. Patient states the back pain hurts with any kind of movement. Patient states that sharp in nature. Patient states at rest does feel better. Patient states the main reason she came in today however was because she had a bowel movement today and there was quite a bit of bright red blood. Patient denies any pain in the rectum patient denies any abdominal pain patient denies any nausea vomiting diarrhea per patient denies any blood thinners patient denies any symptoms that are similar in the past. Patient denies any lightheadedness or dizziness. Patient denies any shortness of breath or chest pain or palpitations. - Related Data Home Medications Medication Instructions Recorded Confirmed Sodium Chloride 5% Ophth Soln 2 drops BOTH EYES HS 12/13/20 11/02/21 [Rosette 128] Albuterol Inhaler [Ventolin Hfa 2 puff INHALATION RT-Q4H PRN 06/25/21 11/02/21 Inhaler] Topiramate 50 mg PO BID 06/25/21 11/02/21 Triamterene/Hydrochlorothiazid 37 mg PO DAILY 06/25/21 11/02/21 [Triamterene-Hctz 37.5-25 mg Tb] Azelastine/Fluticasone 1 spray EA NOSTRIL DAILY 11/02/21 11/02/21 [Azelastin-Flutic 137-50Mcg Spr] Biotin [Biotin Disolve] 10,000 mcg PO BID 11/02/21 11/02/21 Ergocalciferol [Vitamin D2 (1250 1,250 mcg PO WEEKLY 11/02/21 11/02/21 Mcg = 13581 Iu)] Omeprazole 20 mg PO BID 11/02/21 11/02/21 Turmeric Root Extract [Turmeric] 2,000 mg PO DAILY 11/02/21 11/02/21 metFORMIN HCL [Glucophage] 500 mg PO BID 11/02/21 11/02/21 Allergies Allergy/AdvReac Type Severity Reaction Status Date / Time aspirin Allergy Severe Swelling Verified 02/16/22 14:26 throat codeine Allergy Severe Swelling Verified 02/16/22 14:26 throat Penicillins Allergy Severe Swelling Verified 02/16/22 14:26 throat Review of Systems ROS Statement: Those systems with pertinent positive or pertinent negative responses have been documented in the HPI. ROS Other: All systems not noted in ROS Statement are negative. Past Medical History Past Medical History: Diabetes Mellitus, Hypertension, Thyroid Disorder Additional Past Medical History / Comment(s): Migraines, lymphodema History of Any Multi-Drug Resistant Organisms: None Reported Past Surgical History: Uterine Ablation Additional Past Surgical History / Comment(s): gastric sleeve Past Anesthesia/Blood Transfusion Reactions: No Reported Reaction Past Psychological History: No Psychological Hx Reported Smoking Status: Never smoker Past Alcohol Use History: Rare Past Drug Use History: None Reported - Past Family History Mother Family Medical History: Chest Pain / Angina, Congestive Heart Failure (CHF), COPD, Diabetes Mellitus, Hypertension Father Family Medical History: Congestive Heart Failure (CHF), COPD, Coronary Artery Disease (CAD), Diabetes Mellitus, Hypertension, Renal Disease Sister(s) Family Medical History: No Reported History Brother(s) Family Medical History: No Reported History Son(s) Family Medical History: No Reported History General Exam - General Exam Comments Initial Comments: GENERAL: Patient is well-developed and well-nourished. Patient is nontoxic and well- hydrated and is in mild distress. ENT: Neck is soft and supple. No significant lymphadenopathy is noted. Oropharynx i s clear. Moist mucous membranes. Neck has full range of motion without eliciting any pain. EYES: The sclera were anicteric and conjunctiva were pink and moist. Extraocular movements were intact and pupils were equal round and reactive to light. Eyelids were unremarkable. PULMONARY: Unlabored respirations. Good breath sounds bilaterally. No audible rales rhonchi or wheezing was noted. CARDIOVASCULAR: There is a regular rate and rhythm without any murmurs gallops or rubs. ABDOMEN: Soft and nontender with normal bowel sounds. No palpable organomegaly was noted. There is no palpable pulsatile mass. SKIN: Skin is clear with no lesions or rashes and otherwise unremarkable. NEUROLOGIC: Patient is alert and oriented x3. Cranial nerves II through XII are grossly intact. Motor and sensory are also intact. Normal speech, volume and content. Symmetrical smile. MUSCULOSKELETAL: Normal extremities with adequate strength and full range of motion. Patient has a little tenderness to the left lower back on palpation and I had the patient bend and twist and all movement causes her pain or lower back in the left LYMPHATICS: No significant lymphadenopathy is noted PSYCHIATRIC: Normal psychiatric evaluation. Limitations: no limitations Course Vital Signs 02/16/22 14:23 Temperature 97.9 F Pulse Rate 73 Respiratory 16 Rate Blood Pressure 154/81 O2 Sat by Pulse 96 Oximetry Medical Decision Making - Medical Decision Making I spoke with Dr. Cleveland he agreed to admit the patient admitted the patient wrote admitting orders I can continue trying CBCs every 6 hours. I did give the patient some Toradol for her back pain and she did feel improvement. EKG shows sinus rhythm at 83 bpm WA interval 250 QRS is 80 QT interval 359 QTC is 398 per patient's EKG shows no ST segment elevation or depression. - Lab Data Result diagrams: 02/16/22 15:22 02/16/22 14:51 Lab Results 02/16/22 02/16/22 02/16/22 Range/Units 14:51 15:22 15:22 WBC 6.9 (3.8-10.6) k/uL RBC 5.11 (3.80-5.40) m/uL Hgb 15.4 (11.4-16.0) gm/dL Hct 43.6 (34.0-46.0) % MCV 85.2 (80.0-100.0) fL MCH 30.1 (25.0-35.0) pg MCHC 35.3 (31.0-37.0) g/dL RDW 12.7 (11.5-15.5) % Plt Count 224 (150-450) k/uL MPV 8.5 Neutrophils % 52 % Lymphocytes % 38 % Monocytes % 6 % Eosinophils % 1 % Basophils % 1 % Neutrophils # 3.6 (1.3-7.7) k/uL Lymphocytes # 2.6 (1.0-4.8) k/uL Monocytes # 0.4 (0-1.0) k/uL Eosinophils # 0.1 (0-0.7) k/uL Basophils # 0.1 (0-0.2) k/uL PT 10.7 (9.0-12.0) sec INR 1.0 (<1.2) APTT 22.2 (22.0-30.0) sec Sodium 137 (137-145) mmol/L Potassium 4.0 (3.5-5.1) mmol/L Chloride 99 (98-107) mmol/L Carbon Dioxide 22 (22-30) mmol/L Anion Gap 16 mmol/L BUN 19 H (7-17) mg/dL Creatinine 0.76 (0.52-1.04) mg/dL Est GFR (CKD-EPI)AfAm >90 (>60 ml/min/1.73 sqM) Est GFR (CKD-EPI)NonAf >90 (>60 ml/min/1.73 sqM) Glucose 114 H (74-99) mg/dL Calcium 9.9 (8.4-10.2) mg/dL Total Bilirubin 0.5 (0.2-1.3) mg/dL AST 40 H (14-36) U/L ALT 46 H (4-34) U/L Alkaline Phosphatase 72 (38-126) U/L Troponin I (0.000-0.034) ng/mL Total Protein 7.1 (6.3-8.2) g/dL Albumin 4.8 (3.5-5.0) g/dL Lipase 393 H (23-300) U/L TSH 0.108 L (0.465-4.680) mIU/L Free T4 1.19 (0.78-2.19) ng/dL Blood Type Blood Type Recheck Bld Type Recheck Status Antibody Screen Spec Expiration Date 02/16/22 02/16/22 Range/Units 15:22 15:22 WBC (3.8-10.6) k/uL RBC (3.80-5.40) m/uL Hgb (11.4-16.0) gm/dL Hct (34.0-46.0) % MCV (80.0-100.0) fL MCH (25.0-35.0) pg MCHC (31.0-37.0) g/dL RDW (11.5-15.5) % Plt Count (150-450) k/uL MPV Neutrophils % % Lymphocytes % % Monocytes % % Eosinophils % % Basophils % % Neutrophils # (1.3-7.7) k/uL Lymphocytes # (1.0-4.8) k/uL Monocytes # (0-1.0) k/uL Eosinophils # (0-0.7) k/uL Basophils # (0-0.2) k/uL PT (9.0-12.0) sec INR (<1.2) APTT (22.0-30.0) sec Sodium (137-145) mmol/L Potassium (3.5-5.1) mmol/L Chloride (98-107) mmol/L Carbon Dioxide (22-30) mmol/L Anion Gap mmol/L BUN (7-17) mg/dL Creatinine (0.52-1.04) mg/dL Est GFR (CKD-EPI)AfAm (>60 ml/min/1.73 sqM) Est GFR (CKD-EPI)NonAf (>60 ml/min/1.73 sqM) Glucose (74-99) mg/dL Calcium (8.4-10.2) mg/dL Total Bilirubin (0.2-1.3) mg/dL AST (14-36) U/L ALT (4-34) U/L Alkaline Phosphatase (38-126) U/L Troponin I <0.012 (0.000-0.034) ng/mL Total Protein (6.3-8.2) g/dL Albumin (3.5-5.0) g/dL Lipase (23-300) U/L TSH (0.465-4.680) mIU/L Free T4 (0.78-2.19) ng/dL Blood Type A Positive Blood Type Recheck A Pos Bld Type Recheck Status No Antibody Screen NEGATIVE Spec Expiration Date 02/19/20222321 Disposition Clinical Impression: GI bleed, Lower back pain Time of Disposition: 18:35
[2022-02-16 19:09] LABS: Basophils % (A) 1 %; Eosinophils # (A) 0.1 k/uL (0-0.7); Eosinophils % (A) 1 %; HCT 43.3 % (34.0-46.0); HGB 15.1 gm/dL (11.4-16.0); Lymphocytes # (A) 2.2 k/uL (1.0-4.8); Lymphocytes % (A) 31 %; MCH 29.5 pg (25.0-35.0); MCHC 34.9 g/dL (31.0-37.0); MCV 84.7 fL (80.0-100.0); Mean Platelet Volume 8.7; Monocytes # (A) 0.4 k/uL (0-1.0); Monocytes % (A) 5 %; Neutrophils # (A) 4.3 k/uL (1.3-7.7); Neutrophils % (A) 60 %; Platelet Count 205 k/uL (150-450); RBC 5.12 m/uL (3.80-5.40); WBC 7.2 k/uL (3.8-10.6)
[2022-02-16] MEDS ORDERED: ALBUTEROL NEBULIZED 2.5 MG/3 ML INHALATION PRN (22:29)
[2022-02-16] MEDS ORDERED: ACETAMINOPHEN TAB 325 MG TAB PO PRN (22:35)
[2022-02-17] MEDS: ATORVASTATIN 20 MG TAB PO SCH ×2 (00:10→08:39)
[2022-02-17] MEDS: PANTOPRAZOLE 40 MG TABLET PO SCH ×2 (00:10→08:39)
[2022-02-17] MEDS: metFORMIN 500 MG TAB PO SCH ×2 (00:10→08:39)
[2022-02-17 07:06] LABS: Glucose,Whole Blood 87 mg/dL (70-110)
[2022-02-17] MEDS ORDERED: TRIAMTERENE-HCTZ 37.5-25MG 1 EACH TAB PO SCH (09:00)
[2022-02-17] MEDS ORDERED: NON FORMULARY DRUG (Biotin [Biotin Disolve] 10,000 MCG Tablet) PO SCH (09:00)
[2022-02-17] MEDS ORDERED: ERGOCALCIFEROL 1,250 MCG (50,000 IU) CAPSULE PO SCH (09:00)
[2022-02-17] MEDS ORDERED: NON FORMULARY DRUG (Semaglutide [Ozempic] 0.25 MG/0.2 ML Each) SQ SCH (09:00)
[2022-02-17 09:15] LABS: Basophils # (A) 0.03 X 10*3/uL (0.00-0.10); Basophils % (A) 0.5 %; Eosinophils % (A) 1.7 %; HCT 41.6 % (37.2-46.3); HGB 14.2 g/dL (12.0-15.0); Immature Grans, Automated 0.3 %; Lymphocytes # (A) 2.25 X 10*3/uL (0.90-5.00); Lymphocytes % (A) 37.9 %; MCH 29.2 pg (27.0-32.0); MCHC 34.1 g/dL (32.0-37.0); MCV 85.4 fL (80.0-97.0); Mean Platelet Volume 11.1 fL (9.5-12.2); Monocytes # (A) 0.57 X 10*3/uL (0.20-1.00); Monocytes % (A) 9.6 %; NRBC Per 100 WBC 0 /100 WBCS (0.0-0.0); Neutrophils # (A) 2.96 X 10*3/uL (1.80-7.70); Platelet Count 218 X 10*3/uL (140-440); RBC 4.87 X 10*6/uL (4.10-5.20); RDW 12.8 % (11.5-14.5); WBC 5.93 X 10*3/uL (4.50-10.00)
[2022-02-17 11:09] LABS: Glucose,Whole Blood 87 mg/dL (70-110)
[2022-02-17 11:28] VITALS: BP 114/74; PULSE 70; RESP 17; TEMP 97.8
[2022-02-17] MEDS ORDERED: methocarbamoL 500 MG TAB PO SCH (13:15)
--- NOTE | 2022-02-17 15:15 | P.HPIM ---
History of Present Illness H&P Date: 02/17/22 Chief Complaint: Rectal bleeding, back pain History and Physical and Discharge Summary This is a 50-year-old female with past medical history of hypertension, migraines, lymphedema, gastric sleeve, no smoking history and multiple other medical issues presented to the ER with nonradiating lower mid to left back pain and one episode of bright red rectal bleeding noted in toilet. Patient reports she was sitting in a recliner hold attempting to reach the controller arm on the left side and instantly developed spasming in her left lower back. Attempted Tylenol with no relief. Reports it is nonradiating, denies numbness or tingling of bilateral lower extremities. Denies abdominal pain. Denies suprapubic pain. Denies urinary frequency or dysuria. Reports no change in urinary or bowel habits-states usually has a bowel movement every other day. No further episodes of rectal bleeding. Denies chest pain, palpitations or shortness of breath. Denies lightheadedness, dizziness or focal deficits. Denies syncope, denies fall .denies cough ,congestion or fevers. Hemoglobin, platelets stable, 14.2, 218. BUN 19, creatinine 0.76.Total bili 0.5, AST 40, ALT 46, alk phos 72.Lipase 393 Vital signs stable. TSH 0.108, free T4 1 0.19. Afebrile, normal WBC. Received Toradol with significant improvement in pain. Ambulating in room, tolerating exertion well. Review of Systems ROS Statement: Those systems with pertinent positive or pertinent negative responses have been documented in the HPI. ROS Other: All systems not noted in ROS Statement are negative. Past Medical History Past Medical History: COPD, Diabetes Mellitus, Hypertension, Thyroid Disorder Additional Past Medical History / Comment(s): Migraines, lymphodema, COPD diagnosed Jun 30 at [facility]; cataracts November 2021 History of Any Multi-Drug Resistant Organisms: None Reported Past Surgical History: Uterine Ablation Additional Past Surgical History / Comment(s): gastric sleeve Past Anesthesia/Blood Transfusion Reactions: No Reported Reaction Past Psychological History: No Psychological Hx Reported Smoking Status: Never smoker Past Alcohol Use History: Rare Past Drug Use History: None Reported - Past Family History Mother Family Medical History: Chest Pain / Angina, Congestive Heart Failure (CHF), COPD, Diabetes Mellitus, Hypertension Father Family Medical History: Congestive Heart Failure (CHF), COPD, Coronary Artery Disease (CAD), Diabetes Mellitus, Hypertension, Renal Disease Sister(s) Family Medical History: No Reported History Brother(s) Family Medical History: No Reported History Son(s) Family Medical History: No Reported History Medications and Allergies Home Medications Medication Instructions Recorded Confirmed Type Albuterol Inhaler [Ventolin Hfa 2 puff INHALATION RT-Q4H PRN 06/25/21 02/16/22 History Inhaler] Triamterene/Hydrochlorothiazid 1 tab PO DAILY 06/25/21 02/16/22 History [Triamterene-Hctz 37.5-25 mg Tb] Biotin [Biotin Disolve] 10,000 mcg PO DAILY 11/02/21 02/16/22 History Ergocalciferol [Vitamin D2 (1250 1,250 mcg PO WE 11/02/21 02/16/22 History Mcg = 31299 Iu)] Omeprazole 20 mg PO BID 11/02/21 02/16/22 History metFORMIN HCL [Glucophage] 500 mg PO BID 11/02/21 02/16/22 History Atorvastatin [Lipitor] 20 mg PO DAILY 02/16/22 02/16/22 History Semaglutide [Ozempic] 0.5 mg SQ WE 02/16/22 02/16/22 History methocarbamoL [Robaxin] 500 mg PO Q6H PRN #30 tab 02/17/22 Rx Allergies Allergy/AdvReac Type Severity Reaction Status Date / Time aspirin Allergy Severe Swelling Verified 02/16/22 19:02 throat codeine Allergy Severe Swelling Verified 02/16/22 19:02 throat Penicillins Allergy Severe Swelling Verified 02/16/22 19:02 throat Physical Exam Vitals: Vital Signs Temp Pulse Pulse Pulse Resp BP BP 02/17/22 11:05 97.8 F 70 17 114/74 02/17/22 08:48 68 114/69 02/17/22 04:38 97.6 F 74 18 108/68 02/16/22 22:27 97.7 F 69 18 136/85 02/16/22 20:29 62 18 142/81 02/16/22 20:00 18 02/16/22 19:00 65 18 147/102 Pulse Ox 02/17/22 11:05 95 02/17/22 08:48 02/17/22 04:38 96 02/16/22 22:27 96 02/16/22 20:29 95 02/16/22 20:00 02/16/22 19:00 95 Intake and Output 02/16/22 02/17/22 02/17/22 22:59 06:59 14:59 Intake Total 0 Output Total 2 Balance 0 -2 Intake: Oral 0 Output: Urine 2 Other: Voiding Method Toilet # Voids 0 Weight 94.801 kg PHYSICAL EXAM: VITAL SIGNS: [As above] GENERAL: Sitting up in bed, no acute distress, pleasant, cooperative HEENT: Head is atraumatic, pupils equal, round, Conjunctivae normal. eyes normal. NECK: Supple, No JVD. CARDIOVASCULAR: S1, S2 regular. No murmur, no edema. RESPIRATION: Equal air entry ,Breath sounds diminished in the bases. No rhonchi or crackles. No bronchial breathing. ABDOMEN: Soft, nontender , nondistended, No guarding. no masses palpable. No pain or tenderness noted upon palpation.No ascites, No hepatosplenomegaly.Bowel sounds heard. INTEGUMENTARY: No cyanosis, no jaundice, no rashes noted, warm and dry. PSYCHIATRY: Alert and oriented X3, mood and affect normal. NERVOUS SYSTEM: Cranial N 2-12 grossly normal. Moves all [address] 5/5 juan ramon LE. No focal deficits. Strength and sensation grossly intact. Results CBC & Chem 7: 02/17/22 06:13 02/16/22 14:51 Labs: Abnormal Lab Results - Last 24 Hours (Table) 02/16/22 Range/Units 14:51 BUN 19 H (7-17) mg/dL Glucose 114 H (74-99) mg/dL AST 40 H (14-36) U/L ALT 46 H (4-34) U/L Lipase 393 H (23-300) U/L TSH 0.108 L (0.465-4.680) mIU/L Thrombosis Risk Factor Assmnt - Choose All That Apply Any of the Below Risk Factors Present?: Yes Each Factor Represents 1 point: Age 41-60 years, Obesity (BMI >25) Other Risk Factors: No Other congenital or acquired thrombophilia - If yes, enter type in comment: No Thrombosis Risk Factor Assessment Total Risk Factor Score: 2 Thrombosis Risk Factor Assessment Level: Low Risk Assessment and Plan Assessment: Acute lumbar myofascial strain with low back pain, muscle spasms. Right red rectal bleeding 1 episode noted in the toilet, possibly hemorrhoids, possible lower GI bleed, further follow-up to be arranged by PCP with GI for endoscopy outpatient. Hemoglobin, Platelets stable. Diabetes mellitus, reports recent A1c at the PCPs office was 6. Thyroid disorder, TSH 0.108, free T4 1 0.19, further follow-up outpatient in clinic. History of Persistent 16 mm nodule at the inferior aspect of the thyroid gland, further follow-up OP recommended. Cardiomegaly Hypertension Hepatic steatosis Morbid obesity, BMI 39.5 History of gastric sleeve Plan: Continue on current medication regime ,monitoring and symptomatic treatment. Patient ambulating in room, tolerating exertion well. Discussed arrangements of following up with PCP in 3 days ,outpatient endoscopy via PCP and proceeding home with muscle relaxants. Patient in agreement with discharge plan. Patient will be discharged home today in a stable condition with guarded prognosis. Discharge Medication List Albuterol Inhaler [Ventolin Hfa Inhaler] 2 puff INHALATION RT-Q4H PRN 06/25/21 [History] Triamterene/Hydrochlorothiazid [Triamterene-Hctz 37.5-25 mg Tb] 1 tab PO DAILY 06/25/21 [History] Biotin [Biotin Disolve] 10,000 mcg PO DAILY 11/02/21 [History] Ergocalciferol [Vitamin D2 (1250 Mcg = 64851 Iu)] 1,250 mcg PO WE 11/02/21 [History] Omeprazole 20 mg PO BID 11/02/21 [History] metFORMIN HCL [Glucophage] 500 mg PO BID 11/02/21 [History] Atorvastatin [Lipitor] 20 mg PO DAILY 02/16/22 [History] Semaglutide [Ozempic] 0.5 mg SQ WE 02/16/22 [History] methocarbamoL [Robaxin] 500 mg PO Q6H PRN #30 tab 02/17/22 [Rx] The impression and plan of care has been dictated as directed. : I performed a history and examination of this patient, discussed the same with the dictator. I agree with the dictator's note ,documented as a scribe. Any additional findings or plans will be noted.
== END 2022-02-17 15:50 | disposition home or self-care (01) ==
LOC: EC 13:56 → 6NMEDSUR 18:35 → 5NMEDONC 20:21
PROVIDERS: ADMIT Family Medicine; ATTEND Family Medicine
DX: S39.012A Strain of muscle, fascia and tendon of lower back, initial encounter (principal); M62.838 Other muscle spasm; E11.9 Type 2 diabetes mellitus without complications; J44.9 Chronic obstructive pulmonary disease, unspecified; I11.9 Hypertensive heart disease without heart failure; E66.9 Obesity, unspecified; K76.0 Fatty (change of) liver, not elsewhere classified; E07.9 Disorder of thyroid, unspecified; Z79.899 Other long term (current) drug therapy; Z79.84 Long term (current) use of oral hypoglycemic drugs; Z88.6 Allergy status to analgesic agent; Z88.5 Allergy status to narcotic agent; Z88.0 Allergy status to penicillin; Z83.3 Family history of diabetes mellitus; Z82.49 Family history of ischemic heart disease and other diseases of the circulatory system; Z82.5 Family history of asthma and other chronic lower respiratory diseases; Z84.1 Family history of disorders of kidney and ureter; Z98.84 Bariatric surgery status; Z68.39 Body mass index [BMI] 39.0-39.9, adult; X50.9XXA Other and unspecified overexertion or strenuous movements or postures, initial encounter
CPT/HCPCS: 96374; 99285; 36415; 93005; 86900; 86901; 84439; 80053; 84443; 83690; 84484; 85025 ×2; 85610; 85730; 86850; G0378 ×2; J1885

== ENCOUNTER → 2022-07-26 | Outpatient (CLI) | payer BC ==
--- NOTE | 2022-07-31 14:54 | CE ---
72 HOUR HOLTER STUDY PERFORMED: ECG. INDICATION OF THE STUDY: Rule out cardiac arrhythmia. The patient was monitored for 24 hours. The baseline rhythm appeared to be sinus mechanism. Minimum heart rate was 62, max 143 and average of 88 beats per minute. The patient did have multiple episodes of ventricular bigeminy and ventricular couplets. No evidence of significant sinus pause or sinus arrest. No evidence of any advanced AV block. No diary was attached to the study. CONCLUSION: 1. Sinus rhythm as a baseline mechanism. 2. No evidence of atrial fibrillation or atrial flutter. 3. No significant sinus pause or sinus arrest. 4. The patient did have multiple episodes of ventricular bigeminy and ventricular couplets. 5. No diary was attached to the study. MMODL / IJN: [id number] / HELGA
== END | disposition home or self-care (01) ==
LOC: RADECHMAIN 07:09
PROVIDERS: ATTEND Family Medicine
DX: I49.3 Ventricular premature depolarization (principal)
CPT/HCPCS: 93225; 93226

== ENCOUNTER → 2022-10-26 | Outpatient (CLI) | payer BC ==
--- NOTE | 2022-10-26 14:26 | US ---
EXAMINATION TYPE: US thyroid st tissue head/neck DATE OF EXAM: 10/26/2022 COMPARISON: 10/07/2021 CLINICAL INDICATION: Female, 51 years old with history of E04.1 NONTOXIC SINGLE THYROID NODULE; follo w up exam GLAND SIZE: Right Lobe: 4.9 x 1.3 x 1.3 Overall Parenchyma: homogenous Left Lobe: 5.1 x 1.1 x 1.2 Overall Parenchyma: heterogenous Isthmus Thickness: 0.4m NODULES RIGHT: # of nodules measured on right: 0 LEFT: # of nodules measured on left: 1 1. 1.2 x 0.9 x 0.8m, mid, solid or almost completely solid, hypoechoic nodule, which is wider than t all, with smooth margins, without echogenic foci. Prior size: 1.4 x 0.9 x 0.8 cm ISTHMUS: # of nodules measured in the isthmus: 0 Bilateral neck scanned, no evidence of lymphadenopathy. IMPRESSION: Solid TR4 nodule left lower pole measuring 1.2 cm versus 1.4 cm, previously.
== END | disposition home or self-care (01) ==
LOC: RADUSWWP 09:51
PROVIDERS: ATTEND Otolaryngology
DX: E04.1 Nontoxic single thyroid nodule (principal)
CPT/HCPCS: 76536

== ENCOUNTER → 2023-04-28 | Outpatient (CLI) | payer BC ==
--- NOTE | 2023-04-28 19:29 | XR ---
EXAMINATION TYPE: XR cervical spine comp DATE OF EXAM: 04/28/2023 3:46 PM CLINICAL INDICATION:Female, 52 years old with history of M54.2 Cervical pain; [facility] COMPARISON: None TECHNIQUE: The cervical spine was imaged in frontal, lateral, odontoid and bilateral oblique. FINDINGS: The osseous structures show normal alignment without evidence of an acute fracture. There are osteoph ytes noted throughout the cervical spine on the anterior and lateral aspects of the vertebral bodies. The intervertebral disk spaces are narrowed at multiple levels. Pedicles are intact. Soft tissues a re within normal limits. The odontoid appears intact. No neural foramen bilaterally appear patent. IMPRESSION: 1. No fracture or dislocation. 2. Mild degenerative disc disease changes of the cervical spine.
== END | disposition home or self-care (01) ==
LOC: RADXRMAIN 15:09
PROVIDERS: ATTEND Family Medicine
DX: M50.30 Other cervical disc degeneration, unspecified cervical region (principal)
CPT/HCPCS: 72050

== ENCOUNTER → 2023-06-01 | Outpatient (CLI) | payer BC ==
--- NOTE | 2023-06-01 12:30 | MR ---
EXAMINATION TYPE: MR cervical spine wo con DATE OF EXAM: 06/01/2023 10:52 AM CLINICAL INDICATION:Female, 52 years old with history of M54.2 CERVICAL PAIN; [facility], Neck pain, stiffne ss, migraines COMPARISON: 04/28/2023. TECHNIQUE: Multi planar, multi sequence imaging was performed utilizing: T1-weighted, T2-weighted, an d turbo inversion recovery imaging of the cervical spine. IV Contrast: cc (none if empty) FINDINGS: Alignment: The cervical vertebral bodies have preserved heights. Alignment is within normal limits gi ron patient positioning. Bones: Scattered Modic endplate changes with osteophytes and disc space narrowing. Multilevel degener ative disc disease is noted and most pronounced at the C5-C7 vertebral levels. Cord: The spinal cord is unremarkable with regards to their signal intensity and morphology. Discs: C2-C3: No significant disc pathology. The spinal canal is patent. No neural foraminal stenosis. C3-C4: No significant disc pathology. The spinal canal is patent. No neural foraminal stenosis. C4-C5: No significant disc pathology. The spinal canal is patent. No neural foraminal stenosis. C5-C6: No significant disc pathology. The spinal canal is patent. Bilateral facet and uncovertebral joint arthropathy are present with mild bilateral neural foraminal stenosis. C6-C7: No significant disc pathology. The spinal canal is patent. No neural foraminal stenosis. C7-T1: No significant disc pathology. The spinal canal is patent. No neural foraminal stenosis. Other: None. IMPRESSION: 1. No evidence for disc herniation or significant spinal canal stenosis. 2. Mild disc degeneration with associated osteoarthritic changes. No significant neural foraminal bernabe nosis.
== END | disposition home or self-care (01) ==
LOC: RADMRIMAIN 09:57
PROVIDERS: ATTEND Family Medicine
DX: M50.30 Other cervical disc degeneration, unspecified cervical region (principal); M47.812 Spondylosis without myelopathy or radiculopathy, cervical region; G43.909 Migraine, unspecified, not intractable, without status migrainosus
CPT/HCPCS: 72141

== ENCOUNTER → 2023-07-20 | Outpatient (CLI) | payer BC ==
--- NOTE | 2023-07-21 11:38 | P.PCN ---
Description of Procedure: CLINICAL: A home sleep apnea test has been done for confirmation of possible obstructive sleep apnea-hypopnea syndrome. DESCRIPTION OF PROCEDURE: RESULTS: Recording time was 9 hours 18 minutes. Evaluation time was 8 hours 16 minutes. Evaluation time is sufficient for making conclusion about results of the test. Raw data of sleep recording has been reviewed and is adequate. Respiratory channel showed 10 apneas and 51 hypopneas. Apnea-hypopnea index was 7.4 per hour. Pulse rate in the range between minimum 59, maximum 131, average 71 by computer calculation. Lowest desaturation was 82%. IMPRESSION: 1. Obstructive Sleep Apnea Hypopnea Syndrome in mild range, although home sleep apnea test may underestimate severity of sleep apnea. 2. History of hypertension. 3. History of episodes of cardiac arrhythmia during sleep. Please see other impressions from consultation. PLAN: 1. The patient will be started on auto-PAP treatment for correction of respiratory abnormallities during sleep. 2. I will see patient for follow up visit to discuss results of the test, evaluate clinical response on treatment with PAP therapy and make any necessary adjustments related to mask fitting, pressure, and humidification. 3. Watching and losing weight. 4. Sleep hygiene with regular time in bed for at least 8 hours. 5. No driving if feeling any sleepiness. Thank you very much for allowing me to participate in the management of your patient. Sincerely, Javid Jasso MD, PhD, FAASM Diplomat of [place] [employer] Sleep Medicine Board of [place] [employer] Managing Director of [facility] [place] cc: Jasmin Corona MD
== END ==
LOC: 3 N SLEEP 16:46
PROVIDERS: ATTEND Internal Medicine
DX: G47.33 Obstructive sleep apnea (adult) (pediatric) (principal); I10 Essential (primary) hypertension; I49.9 Cardiac arrhythmia, unspecified; Z99.89 Dependence on other enabling machines and devices; Z88.5 Allergy status to narcotic agent; Z88.0 Allergy status to penicillin; Z88.8 Allergy status to other drugs, medicaments and biological substances; Z87.891 Personal history of nicotine dependence

== ENCOUNTER → 2023-09-22 | Outpatient (CLI) | payer BC ==
--- NOTE | 2023-09-25 19:31 | MM ---
Reason for Exam: Screening (asymptomatic). Last mammogram was performed 3 year(s) and 1 month(s) ago. Patient History: Menarche at age 11. First Full-Term at age 29. Late child-bearing (after 28). Postmenopausal. Hormonal Contraceptives for 1 year from age 38 until age 40. 09/22/2016, Benign Core Biopsy on the right side. Maternal aunt had breast cancer. Sister had breast cancer, age 32. Mother had breast cancer, age 50. Risk Values: Tiarra 5 year model risk: 4.0%. NCI Lifetime model risk: 26.2%. Prior Study Comparison: 09/22/2016 Right Diagnostic Mammogram, [facility]. 08/09/2018 Bilateral Diagnostic Mammogram, [facility]. 08/22/2020 Bilateral Screening Mammogram, [facility]. Tissue Density: The breasts are almost entirely fatty. Findings: Analyzed By CAD. The right breast from prior biopsy. Faint microcalcifications upper outer quadrant right breast anterior to middle depth are noted. Further magnification views are recommended. Otherwise, no significant change. Overall Assessment: Incomplete: need additional imaging evaluation, BI-RAD 0 Management: Special View Mammogram of the right breast. [facility] will attempt to contact patient to return for supplemental views and ultrasound if indicated. Electronically signed and approved by: Chelsea Becker M.D. Radiologist
== END | disposition home or self-care (01) ==
LOC: RADMAMWWP 11:45
PROVIDERS: ATTEND Family Medicine
DX: Z12.31 Encounter for screening mammogram for malignant neoplasm of breast (principal); Z80.3 Family history of malignant neoplasm of breast; Z78.0 Asymptomatic menopausal state
CPT/HCPCS: 77067

== ENCOUNTER → 2023-09-27 | Outpatient (CLI) | payer BC ==
--- NOTE | 2023-09-27 09:01 | MM ---
Reason for Exam: Additional evaluation requested from abnormal screening. Last screening mammogram was performed less than 1 month ago. Patient History: Menarche at age 11. First Full-Term at age 29. Late child-bearing (after 28). Postmenopausal. Hormonal Contraceptives for 1 year from age 38 until age 40. 09/22/2016, Benign Core Biopsy on the right side. Maternal aunt had breast cancer. Sister had breast cancer, age 32. Mother had breast cancer, age 50. Risk Values: Tiarra 5 year model risk: 4.0%. NCI Lifetime model risk: 26.2%. Tissue Density: Right: There are scattered areas of fibroglandular density. Findings: Analyzed By CAD. The pattern is stable. The punctate calcifications within the right breast appear stable in distribution and number over the interval. New calcifications are not identified. No suspicious groups of microcalcifications, spiculated or lobular masses, architectural distortion or other secondary signs of malignancy are mammographically apparent. Overall Assessment: Benign, BI-RAD 2 Management: Screening Mammogram of both breasts in 1 year. A negative mammogram report should not preclude additional follow up of suspicious palpable abnormalities. Patient should continue monthly self breast exam. A clinical breast exam by your physician is recommended on an annual basis and results should be correlated with mammographic findings. Note on Tiarra scores and lifetime risk: 1. A Tiarra score greater than 3% is considered moderate risk. If this is the case, consider specialist referral to assess eligibility for a risk reducing agent. 2. If overall lifetime risk for the development of breast cancer is 20% or higher, the patient may qualify for future screening with alternating mammogram and breast MRI. Electronically signed and approved by: Jules Marquis D.O. Radiologis
== END | disposition home or self-care (01) ==
LOC: RADMAMWWP 08:31
PROVIDERS: ATTEND Family Medicine
DX: R92.8 Other abnormal and inconclusive findings on diagnostic imaging of breast (principal); R92.331 Mammographic heterogeneous density, right breast; Z80.3 Family history of malignant neoplasm of breast; Z78.0 Asymptomatic menopausal state
CPT/HCPCS: 77061; 77065

== ENCOUNTER → 2023-10-28 | Outpatient (CLI) | payer BC ==
--- NOTE | 2023-10-28 16:29 | US ---
EXAMINATION TYPE: US thyroid st tissue head/neck DATE OF EXAM: 10/28/2023 COMPARISON: 10/26/22 CLINICAL INDICATION: Female, 52 years old with history of E04.1 NONTOXIC SINGLE THYROID NODULE; f/u GLAND SIZE: Right Lobe: 4.6x1.1x1.2 cm Overall Parenchyma: homogeneous Left Lobe: 4.5x1.1x1.1 cm Overall Parenchyma: homogeneous Isthmus Thickness: 0.4 cm NODULES RIGHT: # of nodules measured on right: 0 LEFT: # of nodules measured on left: 1 1. 1.2 X 0.6 x 1.0 cm, lower mid, solid or almost completely solid, hypoechoic nodule, which is wid er than tall, with ill-defined margins, without echogenic foci. Prior size: 1.2 x 0.9 x 0.8 cm ISTHMUS: # of nodules measured in the isthmus: 0 Bilateral neck scanned, no evidence of lymphadenopathy. IMPRESSION: 1. No thyromegaly. 2. Stable 1.2 cm TR 4 nodule in the left lobe of the thyroid gland 3. Yearly follow-up is recommended 2017 ACR TI-RADS LEVEL: TR 4 *Highest TI-RADS level nodule reported
== END | disposition home or self-care (01) ==
LOC: RADUSWWP 15:17
PROVIDERS: ATTEND Otolaryngology
DX: E04.1 Nontoxic single thyroid nodule (principal); R22.0 Localized swelling, mass and lump, head
CPT/HCPCS: 76536

== ENCOUNTER → 2023-11-09 | Outpatient (CLI) | payer BC ==
[2023-11-09 16:46] VITALS: BP 106/69; PULSE 76; RESP 16; TEMP 98
--- NOTE | 2023-11-09 17:43 | P.PROGSL ---
Subjective DATE: 11/09/2023 FOLLOW UP VISIT. Patient with obstructive sleep apnea hypopnea syndrome return to sleep center for follow-up visit. Recently patient had sleep study which documented obstructive sleep apnea hypopnea syndrome. Patient was initiated on PAP therapy and today is first visit after treatment was started. Patient was able to use PAP equipment every night for the whole night. The patient does not have significant problems with the mask, PAP pressure and humidification. Montchanin sleepiness scale is significantly increased to 17. I checked information from PAP unit. PAP unit pressure 5-12, average 9.6 cm H2O. Usage is 70% for more then 4 hours, average 6.25 hours per night. Leak is 14.3 l/m, which is in acceptable range. Apnea Hypopnea Index is 3.7, which is normal. MEDICATIONS: Please see below During physical exam: GENERAL: A pleasant patient without any distress. VITAL SIGNS: Please see below, weight is 220 pounds. HEENT: PERRLA, EOMI.low position of soft palate, Mallapati 4 . NECK: Supple. No JVD. LUNGS: Clear to percussion and to auscultation. Good air exchange. No wheezing or rhonchi. HEART: S1, S2 regular. ABDOMEN: Soft and nontender. Obese EXTREMITIES: No clubbing or cyanosis. POWER REACTOR SUPERVISOR: Awake, alert, and oriented x3. No focal deficit. Impressions: 1. Obstructive sleep apnea-hypopnea syndrome. Patient demonstrated good compliance with treatment, benefiting from treatment. 2. Obesity. 3. COPD. 4. Asthma. 5. Hypertension. 6. Diabetes mellitus. 7. History of cardiac arrhythmia. 8. Acid reflux. 9. Hyperlipidemia. Plan: 1. Continue using PAP equipment every night for the whole night. 2. To change air filter at least 1-2 times per month. 3. PAP unit should stay lower then position of the head. 4. Advised patient to remove all remaining water from humidifier canister daily and make it dry after each usage. Refill canister with fresh distilled water before each usage. 5. Sleep hygiene with regular time in bed for at least 8 hours. 6. Precautions related to driving. No driving if feel any sleepiness. 7. I will maintain prescription for PAP supplies including mask, tube, filters. 8. Follow up visit in 6 months or earlier if patient has any problems. 9. Watching and losing weight. Thank you very much for allowing me to participate in the management of your patient. Javid Jasso MD, PhD, FAASM. Diplomat of [employer], Sleep Medicine Board by [employer] [facility] [place] Objective - Vital Signs Vital Signs: Vital Signs Temp 98.0 F 11/09/23 16:43 Pulse 76 11/09/23 16:43 Resp 16 11/09/23 16:43 BP 106/69 11/09/23 16:43 Pulse Ox 96 11/09/23 16:43 FiO2 Intake & Output 11/08/23 11/09/23 11/09/23 18:59 06:59 18:59 Weight 99.79 kg Home Medications: Home Medications Medication Instructions Recorded Confirmed Type Albuterol Inhaler [Ventolin Hfa 2 puff INHALATION RT-Q4H PRN 06/25/21 06/14/22 History Inhaler] Triamterene/Hydrochlorothiazid 1 tab PO DAILY 06/25/21 06/14/22 History [Triamterene-Hctz 37.5-25 mg Tb] Omeprazole 20 mg PO BID 11/02/21 06/14/22 History metFORMIN HCL [Glucophage] 500 mg PO BID-W/MEALS 11/02/21 06/14/22 History Atorvastatin [Lipitor] 20 mg PO DAILY 02/16/22 06/14/22 History Semaglutide [Ozempic] 0.5 mg SQ MO 02/16/22 06/14/22 History Cyclobenzaprine [Flexeril] 10 mg PO TID PRN #15 tab 06/16/22 Rx predniSONE 50 mg PO DAILY #5 tab 06/16/22 Rx
== END ==
LOC: 3 N SLEEP 16:14
PROVIDERS: ATTEND Internal Medicine
DX: G47.33 Obstructive sleep apnea (adult) (pediatric) (principal); E66.9 Obesity, unspecified; I10 Essential (primary) hypertension; J44.89 Other specified chronic obstructive pulmonary disease; E11.9 Type 2 diabetes mellitus without complications; K21.9 Gastro-esophageal reflux disease without esophagitis; E78.5 Hyperlipidemia, unspecified; Z99.89 Dependence on other enabling machines and devices; Z86.79 Personal history of other diseases of the circulatory system; Z79.899 Other long term (current) drug therapy; Z79.84 Long term (current) use of oral hypoglycemic drugs; Z79.85 Long-term (current) use of injectable non-insulin antidiabetic drugs; Z88.6 Allergy status to analgesic agent; Z88.5 Allergy status to narcotic agent; Z88.0 Allergy status to penicillin; Z87.891 Personal history of nicotine dependence
CPT/HCPCS: 99212

== ENCOUNTER 2024-04-02 02:46 | Observation (INO) | payer BC ==
--- NOTE | 2024-04-02 03:09 | ED ---
Abdominal Pain HPI - General Chief Complaint: Abdominal Pain Stated Complaint: left sided abd pain Time Seen by Provider: 04/02/24 02:51 Source: patient, family (), RN notes reviewed Mode of arrival: wheelchair Limitations: no limitations - History of Present Illness Initial Comments: 53-year-old female presenting to the ER with a chief complaint of left lower quadrant abdominal pain. She states has been ongoing for the past couple of weeks. It was intermittent in nature but has progressively worsened in intensity throughout the weeks. She describes the pain as an achy sharp discomfort without any radiation. States it is triggered by food. She does report consistent nausea with frequent vomiting and belching. She denies any change in bowel movements. She does report it has been a "couple days" since her last bowel movement. She denies any history of bowel surgeries or resections. Denies any history of diverticulitis. She has tried [id number] Pepto-Bismol and acetaminophen without relief. Patient denies any fevers, chills, cough, congestion, chest pain, shortness of breath, urinary complaints, hematochezia, melena, hematic emesis or peripheral edema. - Related Data Home Medications Medication Instructions Recorded Confirmed Albuterol Inhaler [Ventolin Hfa 2 puff INHALATION RT-Q4H PRN 06/25/21 06/14/22 Inhaler] Triamterene/Hydrochlorothiazid 1 tab PO DAILY 06/25/21 06/14/22 [Triamterene-Hctz 37.5-25 mg Tb] Omeprazole 20 mg PO BID 11/02/21 06/14/22 metFORMIN HCL [Glucophage] 500 mg PO BID-W/MEALS 11/02/21 06/14/22 Atorvastatin [Lipitor] 20 mg PO DAILY 02/16/22 06/14/22 Semaglutide [Ozempic] 0.5 mg SQ MO 02/16/22 06/14/22 Previous Rx's Medication Instructions Recorded Cyclobenzaprine [Flexeril] 10 mg PO TID PRN #15 tab 06/16/22 predniSONE 50 mg PO DAILY #5 tab 06/16/22 Allergies Allergy/AdvReac Type Severity Reaction Status Date / Time aspirin Allergy Severe Swelling Verified 04/02/24 02:49 throat codeine Allergy Severe Swelling Verified 04/02/24 02:49 throat Penicillins Allergy Severe Swelling Verified 04/02/24 02:49 throat Review of Systems ROS Statement: Those systems with pertinent positive or pertinent negative responses have been documented in the HPI. ROS Other: All systems not noted in ROS Statement are negative. Past Medical History Past Medical History: Asthma, COPD, Diabetes Mellitus, Hypertension, Thyroid Disorder Additional Past Medical History / Comment(s): Migraines, lymphodema History of Any Multi-Drug Resistant Organisms: None Reported Past Surgical History: Bariatric Surgery, Uterine Ablation Additional Past Surgical History / Comment(s): gastric sleeve Past Anesthesia/Blood Transfusion Reactions: No Reported Reaction Past Psychological History: No Psychological Hx Reported Smoking Status: Never smoker Past Alcohol Use History: Rare Past Drug Use History: None Reported - Past Family History Mother Family Medical History: Chest Pain / Angina, Congestive Heart Failure (CHF), COPD, Diabetes Mellitus, Hypertension Father Family Medical History: Congestive Heart Failure (CHF), COPD, Coronary Artery Disease (CAD), Diabetes Mellitus, Hypertension, Renal Disease Sister(s) Family Medical History: No Reported History Brother(s) Family Medical History: No Reported History Son(s) Family Medical History: No Reported History General Exam Limitations: no limitations General appearance: alert, in no apparent distress Respiratory exam: Present: normal lung sounds bilaterally. Absent: respiratory distress, wheezes, rales, rhonchi, stridor Cardiovascular Exam: Present: regular rate, normal rhythm, normal heart sounds. Absent: systolic murmur, diastolic murmur, rubs, gallop, clicks GI/Abdominal exam: Present: soft, tenderness (Left lower), normal bowel sounds. Absent: distended, guarding, rebound, rigid Neurological exam: Present: alert, oriented X3, CN II-XII intact Skin exam: Present: warm, dry, intact, normal color. Absent: rash Course Vital Signs 04/02/24 02:49 Temperature 97.6 F Pulse Rate 76 Respiratory 18 Rate Blood Pressure 142/74 O2 Sat by Pulse 98 Oximetry Medical Decision Making - Medical Decision Making Was pt. sent in by a medical professional or institution (, PA, MERCHANDISE DELIVERER, urgent care, hospital, or half-way...) When possible be specific @ -No Did you speak to anyone other than the patient for history (EMS, parent, family, police, friend...)? What history was obtained from this source @ -, at bedside, aiding in HPI and past medical history. Did you review nursing and triage notes (agree or disagree)? Why? @ -I reviewed and agree with nursing and triage notes Were old charts reviewed (outside hosp., previous admission, EMS record, old EKG, old radiological studies, urgent care reports/EKG's, half-way records)? Report findings @ -No old charts were reviewed Differential Diagnosis (chest pain, altered mental status, abdominal pain women, abdominal pain men, vaginal bleeding, weakness, fever, dyspnea, syncope, headache, dizziness, GI bleed, back pain, seizure, CVA, palpatations, mental health, musculoskeletal)? @ -Differential Abdominal Pain Women:Appendicitis, Cholecystitis, diverticulosis, ischemic bowel, pancreatitis, hepatitis, UTI, gastroenteritis, AAA, incarcerated hernia, bowel obstruction, constipation, inflammatory bowel, hepatitis, peptic ulcer disease, splenic infarction, perforated viscus, vulvitis, ovarian torsion, PID, kidney stone, placenta abruption, this is not meant to be an all-inclusive list EKG interpreted by me (3pts min.). @ -None done X-rays interpreted by me (1pt min.). @ -None done CT interpreted by me (1pt min.). @ -Pending U/S interpreted by me (1pt. min.). @ -None done What testing was considered but not performed or refused? (CT, X-rays, U/S, labs)? Why? @ -None What meds were considered but not given or refused? Why? @ -None Did you discuss the management of the patient with other professionals (professionals i.e. , PA, MERCHANDISE DELIVERER, lab, RT, psych nurse, sexual assault social worker, blowing engineer, teacher, dog license officer supervisor, therapeutic case manager)? Give summary @ -No Was smoking cessation discussed for >3mins.? @ -No Was critical care preformed (if so, how long)? @ -No Were there social determinants of health that impacted care today? How? (Homelessness, low income, unemployed, alcoholism, drug addiction, transportation, low edu. Level, literacy, decrease access to med. care, [facility] [facility], rehab)? @ -No Was there de-escalation of care discussed even if they declined (Discuss DNR or withdrawal of care, Hospice)? DNR status @ -No What co-morbidities impacted this encounter? (DM, HTN, Smoking, COPD, CAD, Cancer, CVA, ARF, Chemo, Hep., AIDS, mental health diagnosis, sleep apnea, morbid obesity)? @ -Hypertension, hyperlipidemia, asthma, thyroid disorder Was patient admitted / discharged? Hospital course, mention meds given and route, prescriptions, significant lab abnormalities, going to OR and other pertinent info. @ -53-year-old female presented to the ER with a chief complaint of left lower quadrant abdominal pain. History and physical exam completed. Vitals within normal limits. Patient no signs of distress. Exam remarkable for tenderness with patient of the left lower quadrant with normal vital signs. There is no rebound or guarding. Laboratory studies and CT abdomen pelvis ordered and pending at shift completion. Patient signed out to Dr. Browning pending results and disposition. Disposition Referrals: Chino Amador MD [Primary Care Provider] - 1-2 days
[2024-04-02] MEDS: SODIUM CHLORIDE 0.9% 1,000 ML IV STA (03:23)
[2024-04-02] MEDS: PANTOPRAZOLE 40 MG/10 ML VIAL IVP STA (03:26)
[2024-04-02] MEDS: ACETAMINOPHEN TAB 500 MG TAB PO STA (03:26)
[2024-04-02] MEDS: ONDANSETRON 4 MG/2 ML VIAL IVP STA ×2 (03:26→06:41)
[2024-04-02 03:41] LABS: Basophils % (A) 0 %; Eosinophils # (A) 0.1 k/uL (0-0.7); Eosinophils % (A) 2 %; HCT 41.4 % (34.0-46.0); HGB 13.7 gm/dL (11.4-16.0); Lymphocytes # (A) 2.4 k/uL (1.0-4.8); Lymphocytes % (A) 41 %; MCH 29.2 pg (25.0-35.0); MCHC 33.1 g/dL (31.0-37.0); MCV 88.1 fL (80.0-100.0); Mean Platelet Volume 7.5; Monocytes # (A) 0.4 k/uL (0-1.0); Monocytes % (A) 6 %; Neutrophils # (A) 2.9 k/uL (1.3-7.7); Neutrophils % (A) 48 %; Platelet Count 206 k/uL (150-450); RDW 12.5 % (11.5-15.5); WBC 5.9 k/uL (3.8-10.6)
[2024-04-02 03:49] LABS: ALT 25 U/L (4-34); AST 24 U/L (14-36); African American GFR (CKD) >90 (>60 ml/min/1.73 sqM); Albumin 3.7 g/dL (3.5-5.0); Alkaline Phosphatase 74 U/L (38-126); Amylase 77 U/L (30-110); Anion Gap 3 mmol/L; Blood Urea Nitrogen 17 mg/dL (7-17); Calcium 8.7 mg/dL (8.4-10.2); Carbon Dioxide 27 mmol/L (22-30); Chloride 110 mmol/L (98-107); Glucose 117 mg/dL (74-99); Lipase 284 U/L (23-300); Non-African American GFR(CKD) 87 (>60 ml/min/1.73 sqM); Sodium 140 mmol/L (137-145); Total Bilirubin 0.5 mg/dL (0.2-1.3); Total Protein 6.1 g/dL (6.3-8.2)
[2024-04-02 05:14] LABS: Appearance,Urine Clear (Clear); Bilirubin,Urine Negative (Negative); Blood,Urine Large (Negative); Color,Urine Light Yellow; Glucose,Urine (UA) Negative (Negative); Ketones,Urine Negative (Negative); Leukocyte Esterase,Urine Negative (Negative); Mucus,Urine Many /hpf; Nitrite,Urine Negative (Negative); Protein,Urine Trace (Negative); RBC,Urine 169 /hpf (0-5); Squamous Epithelial Cell,Urine 6 /hpf (0-4); Urobilinogen,Urine <2.0 mg/dL (<2.0); WBC,Urine 1 /hpf (0-5)
--- NOTE | 2024-04-02 05:14 | CT ---
EXAMINATION TYPE: CT abdomen pelvis w con DATE OF EXAM: 04/02/2024 HISTORY: Pt presents with intermittent left sided abdominal pain for the past few weeks. CT DLP: 1277.1mGycm Automated Exposure Control for Dose Reduction was Utilized. CONTRAST: CT scan of the abdomen and pelvis is performed with IV Contrast, patient injected with 100ml mL of Is ovue 300. COMPARISON: Prior CT 2017 FINDINGS: LUNG BASES: Coronary artery calcifications are present. LIVER/GB: Liver remains heterogeneously hypodense consistent with diffuse fatty infiltrative hepatoce llular disease. PANCREAS: No significant abnormality is seen. SPLEEN: No significant abnormality is seen. ADRENALS: Asymmetric thickening to left adrenal gland consistent with benign lipid rich hyperplasia. KIDNEYS:. There is 4 mm nonobstructing calculus right kidney axial image 39. On same image there is a 7 mm calculus in the left renal pelvis causing mild left-sided pyelocaliectasis. There is symmetric excretion on delayed images. BOWEL: Normal appearing appendix from cecum. Surgical changes from gastric sleeve are redemonstrated. No suspicious pelvic dilatation. UTERUS/ADNEXA: No gross abnormality seen. LYMPH NODES: No greater than 1cm abdominal or pelvic lymph nodes are appreciated. OSSEOUS STRUCTURES: No significant abnormality is seen. OTHER: No significant additional abnormality is seen. IMPRESSION: There is 7 mm calculus in the left renal pelvis causing mild pyelocaliectasis but no alirio yed excretion. [facility] Last Dickens, , 04/02/2024 5:11 AM
[2024-04-02 05:32] LABS: Specific Gravity,Urine >1.050 (1.001-1.035)
[2024-04-02] MEDS: MORPHINE SULFATE 4 MG/ML SYRINGE IVP STA (06:40)
[2024-04-02] MEDS ORDERED: NALOXONE 0.4 MG/ML 1 ML VIAL IV PRN (07:18)
[2024-04-02] MEDS: DEXTROSE 5%-0.45% NACL 1,000 ML IV SCH (09:02)
[2024-04-02] MEDS: ENOXAPARIN 40 MG/0.4 ML SYRINGE SQ SCH (09:14)
[2024-04-02] MEDS ORDERED: ALBUTEROL NEBULIZED 2.5 MG/3 ML INHALATION PRN (15:36)
--- NOTE | 2024-04-02 15:37 | P.HPIM ---
History of Present Illness H&P Date: 04/02/24 Chief Complaint: Left flank pain This is a 53-year-old type II diabetic. She came the emergency room complaining of left flank pain. CT revealed a 7 mm stone. She is admitted and is waiting on urology consultation. She denies any chest pains pressure shortness of breath this time. She is minimally tolerating diet. Vital signs show she is afebrile heart rate and respiratory rate under blood pressure control. Labs are essentially normal urinalysis showed large amount of blood. Review of Systems All systems: negative Past Medical History Past Medical History: Asthma, COPD, Diabetes Mellitus, Hypertension, Thyroid Disorder Additional Past Medical History / Comment(s): Migraines, lymphodema History of Any Multi-Drug Resistant Organisms: None Reported Past Surgical History: Bariatric Surgery, Uterine Ablation Additional Past Surgical History / Comment(s): gastric sleeve Past Anesthesia/Blood Transfusion Reactions: No Reported Reaction Past Psychological History: No Psychological Hx Reported Smoking Status: Never smoker Past Alcohol Use History: Rare Past Drug Use History: None Reported - Past Family History Mother Family Medical History: Chest Pain / Angina, Congestive Heart Failure (CHF), COPD, Diabetes Mellitus, Hypertension Father Family Medical History: Congestive Heart Failure (CHF), COPD, Coronary Artery Disease (CAD), Diabetes Mellitus, Hypertension, Renal Disease Sister(s) Family Medical History: No Reported History Brother(s) Family Medical History: No Reported History Son(s) Family Medical History: No Reported History Medications and Allergies Home Medications Medication Instructions Recorded Confirmed Type Albuterol Inhaler [Ventolin Hfa 2 puff INHALATION RT-Q4H PRN 06/25/21 04/02/24 History Inhaler] Triamterene/Hydrochlorothiazid 1 tab PO DAILY 06/25/21 04/02/24 History [Triamterene-Hctz 37.5-25 mg Tb] Omeprazole 20 mg PO AC-BRKFST 11/02/21 04/02/24 History metFORMIN HCL [Glucophage] 500 mg PO BID-W/MEALS 11/02/21 04/02/24 History Atorvastatin [Lipitor] 20 mg PO DAILY 02/16/22 04/02/24 History ALPRAZolam [Xanax] 0.25 mg PO BID PRN 04/02/24 04/02/24 History Amitriptyline HCl [Elavil] 75 mg PO HS 04/02/24 04/02/24 History Black Seed Oil 1 cap PO DAILY 04/02/24 04/02/24 History Elderberry Fruit and Flower [Black 1 cap PO DAILY 04/02/24 04/02/24 History Elderberry 575 mg Cap] Semaglutide [Ozempic] 1 mg SQ TU 04/02/24 04/02/24 History carisoprodoL [Soma] 350 mg PO QID PRN 04/02/24 04/02/24 History Allergies Allergy/AdvReac Type Severity Reaction Status Date / Time aspirin Allergy Severe Swelling Verified 04/02/24 07:07 throat codeine Allergy Severe Swelling Verified 04/02/24 07:07 throat Penicillins Allergy Severe Swelling Verified 04/02/24 07:07 throat Physical Exam Vitals: Vital Signs Temp Pulse Pulse Resp BP BP Pulse Ox 04/02/24 15:02 70 112/71 95 04/02/24 12:20 98.1 F 66 18 97/66 95 04/02/24 10:50 97.6 F 54 L 16 103/66 97 04/02/24 10:15 64 18 141/73 96 04/02/24 07:43 97.8 F 65 134/60 97 04/02/24 06:49 72 17 145/77 04/02/24 04:55 60 16 138/64 98 04/02/24 02:49 97.6 F 76 18 142/74 98 Intake and Output 04/02/24 04/02/24 04/02/24 06:59 14:59 22:59 Other: Voiding Method Toilet Weight 90.718 kg 90.718 kg GENERAL: Fatigued morbidly obese female in bed HEAD: Atraumatic, normocephalic. EYES: Pupils equal round and reactive to light, extraocular movements intact, sclera anicteric, conjunctiva are normal. ENT:nares patent, oropharynx clear without exudates. Moist mucous membranes. NECK: Normal range of motion, supple without lymphadenopathy or JVD, no thyromegaly LUNGS: Breath sounds clear to auscultation bilaterally and equal. No wheezes rales or rhonchi. HEART: Regular rate and rhythm without murmurs, rubs or gallops.S1S2 Normal ABDOMEN: Soft, nontender, normoactive bowel sounds. No guarding, no rebound. No masses appreciated. EXTREMITIES: Normal range of motion, no pitting or edema. No clubbing or cyanosis. NEUROLOGICAL: Cranial nerves II through XII grossly intact. Normal speech, no rmal gait. PSYCH: Normal mood, normal affect. SKIN: Warm, Dry, normal turgor, no rashes or lesions noted. Results CBC & Chem 7: 04/02/24 03:23 04/02/24 03:23 Labs: Abnormal Lab Results - Last 24 Hours (Table) 04/02/24 04/02/24 Range/Units 03:23 04:55 Chloride 110 H (98-107) mmol/L Glucose 117 H (74-99) mg/dL Total Protein 6.1 L (6.3-8.2) g/dL Ur Specific [place] >1.050 H (1.001-1.035) Urine Protein Trace H (Negative) Urine Blood Large H (Negative) Urine RBC 169 H (0-5) /hpf Ur Squamous Epith Cells 6 H (0-4) /hpf Urine Mucus Many H (None) /hpf CT scan - abdomen: report reviewed Thrombosis Risk Factor Assmnt - DVT/VTE Prophylaxis DVT/VTE Prophylaxis: Pharmacologic Prophylaxis ordered - Choose All That Apply Any of the Below Risk Factors Present?: Yes Each Factor Represents 1 point: Abnormal pulmonary function (COPD), Age 41-60 years, Obesity (BMI >25) Other Risk Factors: No Other congenital or acquired thrombophilia - If yes, enter type in comment: No Thrombosis Risk Factor Assessment Total Risk Factor Score: 3 Thrombosis Risk Factor Assessment Level: Moderate Risk Assessment and Plan (1) Nephrolithiasis Current Visit: Yes Status: Acute Code(s): N20.0 - CALCULUS OF KIDNEY SNOMED Code(s): 44049380 (2) Type 2 diabetes mellitus with other circulatory complications Current Visit: Yes Status: Acute Code(s): E11.59 - TYPE 2 DIABETES MELLITUS WITH OTH CIRCULATORY COMPLICATIONS SNOMED Code(s): 78324871 (3) Type 2 diabetes mellitus with other specified complication Current Visit: Yes Status: Acute Code(s): E11.69 - TYPE 2 DIABETES MELLITUS WITH OTHER SPECIFIED COMPLICATION SNOMED Code(s): 58682882 (4) Hypothyroidism, unspecified Current Visit: Yes Status: Acute Code(s): E03.9 - HYPOTHYROIDISM, UNSPECIFIED SNOMED Code(s): 24435871 Plan: Wait on urology recommendations, most likely need surgery repeat labs in a.m. reevaluate next 24 hours.
--- NOTE | 2024-04-02 15:48 | P.GSCN ---
History of Present Illness Consult date: 04/02/24 Reason for Consult: Left renal stone History of present illness: This is a 53-year-old female presented to the hospital with intractable left-s ided flank pain. Pain is associated with nausea and vomiting. She underwent a CT abdomen and pelvis that showed evidence of a 7 mm left-sided renal pelvis stone. She denies any fevers, chills, dysuria or gross hematuria. She does have a previous history of kidney stones many years ago which she passed spontaneously. No previous urological surgeries. In the ER she continues to have pain requiring IV pain medications for acute pain control. Review of Systems - Constitutional Denies fever, Denies weight loss - EENT Ears, nose, mouth and throat: Denies dysphagia - Respiratory Denies cough, Denies 7 - Gastrointestinal Reports as per HPI, Reports abdominal pain, Reports nausea, Reports vomiting - Genitourinary Genitourinary: Reports flank pain, Denies dysuria, Denies hematuria Past Medical History Past Medical History: Asthma, COPD, Diabetes Mellitus, Hypertension, Thyroid Disorder Additional Past Medical History / Comment(s): Migraines, lymphodema History of Any Multi-Drug Resistant Organisms: None Reported Past Surgical History: Bariatric Surgery, Uterine Ablation Additional Past Surgical History / Comment(s): gastric sleeve Past Anesthesia/Blood Transfusion Reactions: No Reported Reaction Past Psychological History: No Psychological Hx Reported Smoking Status: Never smoker Past Alcohol Use History: Rare Past Drug Use History: None Reported - Past Family History Mother Family Medical History: Chest Pain / Angina, Congestive Heart Failure (CHF), COPD, Diabetes Mellitus, Hypertension Father Family Medical History: Congestive Heart Failure (CHF), COPD, Coronary Artery Disease (CAD), Diabetes Mellitus, Hypertension, Renal Disease Sister(s) Family Medical History: No Reported History Brother(s) Family Medical History: No Reported History Son(s) Family Medical History: No Reported History Medications and Allergies Home Medications Medication Instructions Recorded Confirmed Type Albuterol Inhaler [Ventolin Hfa 2 puff INHALATION RT-Q4H PRN 06/25/21 04/02/24 History Inhaler] Triamterene/Hydrochlorothiazid 1 tab PO DAILY 06/25/21 04/02/24 History [Triamterene-Hctz 37.5-25 mg Tb] Omeprazole 20 mg PO AC-BRKFST 11/02/21 04/02/24 History metFORMIN HCL [Glucophage] 500 mg PO BID-W/MEALS 11/02/21 04/02/24 History Atorvastatin [Lipitor] 20 mg PO DAILY 02/16/22 04/02/24 History ALPRAZolam [Xanax] 0.25 mg PO BID PRN 04/02/24 04/02/24 History Amitriptyline HCl [Elavil] 75 mg PO HS 04/02/24 04/02/24 History Black Seed Oil 1 cap PO DAILY 04/02/24 04/02/24 History Elderberry Fruit and Flower [Black 1 cap PO DAILY 04/02/24 04/02/24 History Elderberry 575 mg Cap] Semaglutide [Ozempic] 1 mg SQ TU 04/02/24 04/02/24 History carisoprodoL [Soma] 350 mg PO QID PRN 04/02/24 04/02/24 History Allergies Allergy/AdvReac Type Severity Reaction Status Date / Time aspirin Allergy Severe Swelling Verified 04/02/24 07:07 throat codeine Allergy Severe Swelling Verified 04/02/24 07:07 throat Penicillins Allergy Severe Swelling Verified 04/02/24 07:07 throat Surgical - Exam Vital Signs Temp Pulse Resp BP Pulse Ox 97.6 F 76 18 142/74 98 04/02/24 02:49 04/02/24 02:49 04/02/24 02:49 04/02/24 02:49 04/02/24 02:49 - General no distress, moderate pain - Eyes normal ocular movement, no pale - Respiratory normal expansion, normal respiratory effort - Abdomen Abdomen: soft, tender (Left flank) - Psychiatric oriented to time, oriented to person, oriented to place Results - Labs 04/02/24 03:23 04/02/24 03:23 Abnormal Lab Results - Last 24 Hours (Table) 04/02/24 04/02/24 Range/Units 03:23 04:55 Chloride 110 H (98-107) mmol/L Glucose 117 H (74-99) mg/dL Total Protein 6.1 L (6.3-8.2) g/dL Ur Specific [place] >1.050 H (1.001-1.035) Urine Protein Trace H (Negative) Urine Blood Large H (Negative) Urine RBC 169 H (0-5) /hpf Ur Squamous Epith Cells 6 H (0-4) /hpf Urine Mucus Many H (None) /hpf Diabetes panel 04/02/24 Range/Units 03:23 Sodium 140 (137-145) mmol/L Potassium 4.0 (3.5-5.1) mmol/L Chloride 110 H (98-107) mmol/L Carbon Dioxide 27 (22-30) mmol/L BUN 17 (7-17) mg/dL Creatinine 0.77 (0.52-1.04) mg/dL Glucose 117 H (74-99) mg/dL Calcium 8.7 (8.4-10.2) mg/dL AST 24 (14-36) U/L ALT 25 (4-34) U/L Alkaline Phosphatase 74 (38-126) U/L Total Protein 6.1 L (6.3-8.2) g/dL Albumin 3.7 (3.5-5.0) g/dL Calcium panel 04/02/24 Range/Units 03:23 Calcium 8.7 (8.4-10.2) mg/dL Albumin 3.7 (3.5-5.0) g/dL Pituitary panel 04/02/24 Range/Units 03:23 Sodium 140 (137-145) mmol/L Potassium 4.0 (3.5-5.1) mmol/L Chloride 110 H (98-107) mmol/L Carbon Dioxide 27 (22-30) mmol/L BUN 17 (7-17) mg/dL Creatinine 0.77 (0.52-1.04) mg/dL Glucose 117 H (74-99) mg/dL Calcium 8.7 (8.4-10.2) mg/dL Adrenal panel 04/02/24 Range/Units 03:23 Sodium 140 (137-145) mmol/L Potassium 4.0 (3.5-5.1) mmol/L Chloride 110 H (98-107) mmol/L Carbon Dioxide 27 (22-30) mmol/L BUN 17 (7-17) mg/dL Creatinine 0.77 (0.52-1.04) mg/dL Glucose 117 H (74-99) mg/dL Calcium 8.7 (8.4-10.2) mg/dL Total Bilirubin 0.5 (0.2-1.3) mg/dL AST 24 (14-36) U/L ALT 25 (4-34) U/L Alkaline Phosphatase 74 (38-126) U/L Total Protein 6.1 L (6.3-8.2) g/dL Albumin 3.7 (3.5-5.0) g/dL Assessment and Plan Assessment: This is a 53-year-old female with history of a 7 mm left-sided renal pelvis stone, having intractable pain secondary to her stone. Discussed given the persistent pain option of left-sided ureteroscopy with holmium laser, aware the risk which includes but not limited to bleeding, infection, injury to the ureter -N.p.o. past midnight -OR for left-sided ureteroscopy, holmium lithotripsy, stone basketing and stent insertion tomorrow
[2024-04-02] MEDS: PANTOPRAZOLE 40 MG TABLET PO SCH (15:52)
[2024-04-02 16:58] LABS: Glucose,Whole Blood 127 mg/dL (70-110)
[2024-04-02] MEDS: INSULIN ASPART (NovoLOG) 100 UNIT/ML VIAL SQ SCH (17:31)
[2024-04-02] MEDS: MORPHINE SULFATE 4 MG/ML SYRINGE IV PRN (17:55)
[2024-04-02 20:24] LABS: Glucose,Whole Blood 97 mg/dL (70-110)
[2024-04-02] MEDS: AMITRIPTYLINE HCL 25 MG TAB PO SCH (21:01)
[2024-04-03 07:31] LABS: Glucose,Whole Blood 90 mg/dL (70-110)
[2024-04-03] MEDS: ATORVASTATIN 20 MG TAB PO SCH (07:34)
[2024-04-03 08:37] LABS: Basophils # (A) 0.02 X 10*3/uL (0.00-0.10); Basophils % (A) 0.4 %; Eosinophils # (A) 0.11 X 10*3/uL (0.04-0.35); Eosinophils % (A) 2.4 %; HCT 36.5 % (37.2-46.3); HGB 12.1 g/dL (12.0-15.0); Immature Grans, Automated 0 %; Lymphocytes # (A) 2.23 X 10*3/uL (0.90-5.00); MCH 29.7 pg (27.0-32.0); MCHC 33.2 g/dL (32.0-37.0); MCV 89.7 FL (80.0-97.0); Mean Platelet Volume 10.6 FL (9.5-12.2); Monocytes # (A) 0.35 X 10*3/uL (0.20-1.00); Monocytes % (A) 7.5 %; NRBC Per 100 WBC 0 X 10*3/uL (0.00-0.01); Neutrophils # (A) 1.94 X 10*3/uL (1.80-7.70); Neutrophils % (A) 41.7 %; Platelet Count 187 X 10*3/uL (140-440); RBC 4.07 X 10*6/uL (4.10-5.20); RDW 12.7 % (11.5-14.5); WBC 4.65 X 10*3/uL (4.50-10.00)
[2024-04-03 08:55] LABS: BUN/Creat Ratio 16.14 Ratio (12.00-20.00); Blood Urea Nitrogen 11.3 mg/dL (9.0-27.0); Calcium 8.1 mg/dL (8.7-10.3); Carbon Dioxide 25.7 mmol/L (21.6-31.8); Chloride 107 mmol/L (96-109); Glucose 90 mg/dL (70-110); Sodium 140 mmol/L (135-145)
[2024-04-03] MEDS: IV FLUID CONTINUATION 1,000 ML IV ONE ×2 (09:15→09:42)
[2024-04-03 09:28] LABS: Glucose,Whole Blood 88 mg/dL (70-110)
[2024-04-03] MEDS: LACTATED RINGERS 1,000 ML BAG IV STA (09:28)
[2024-04-03] MEDS: DEXAMETHASONE SOD PHOSPHATE 4 MG/ML 1 ML VIAL IVP STA (09:36)
--- NOTE | 2024-04-03 09:43 | P.PN ---
Subjective Progress Note Date: 04/03/24 Principal diagnosis: No acute overnight event, continues to have left flank pain Objective - Vital Signs Vital signs: Vital Signs Temp 97.2 F L 04/03/24 09:16 Pulse 65 04/03/24 09:16 Resp 18 04/03/24 09:16 BP 144/79 04/03/24 09:16 Pulse Ox 96 04/03/24 09:16 FiO2 Intake & Output 04/02/24 04/03/24 04/03/24 18:59 06:59 18:59 Intake Total 1340 0 Balance 1340 0 Weight 90.718 kg Intake: IV 0 Intake, IV Titration 1100 Amount Dextrose 5%-0.45% NaCl 1, 1100 000 ml @ 20 mls/hr IV . Q24H BRUNA Rx#:[id number] Oral 240 Other: Voiding Method Toilet Toilet # Voids 1 - Constitutional General appearance: Present: no acute distress - Gastrointestinal General gastrointestinal: Present: soft, tenderness (Left flank). Absent: distended - Labs CBC & Chem 7: 04/03/24 04:40 04/03/24 04:40 Labs: Abnormal Lab Results - Last 24 Hours (Table) 04/02/24 04/03/24 04/03/24 Range/Units 16:56 04:40 04:40 RBC 4.07 L (4.10-5.20) X 10*6/uL Hct 36.5 L (37.2-46.3) % POC Glucose (mg/dL) 127 H (70-110) mg/dL Calcium 8.1 L (8.7-10.3) mg/dL Assessment and Plan Assessment: This is a 53-year-old female with history of a 7 mm left-sided renal pelvis stone, having intractable pain secondary to her stone. Discussed given the persistent pain option of left-sided ureteroscopy with holmium laser, aware the risk which includes but not limited to bleeding, infection, injury to the ureter -OR for left-sided ureteroscopy, holmium lithotripsy, stone basketing and stent insertion
[2024-04-03] MEDS ORDERED: SUCCINYLCHOLINE CHLORIDE 200 MG/10 ML VIAL IV ONE (09:56)
[2024-04-03] MEDS ORDERED: fentaNYL (PF) 50 MCG/ML 2 ML AMP ONE (09:56)
[2024-04-03] MEDS ORDERED: LIDOCAINE 1% INJ 10MG/ML (20 ML MDV) ONE (09:56)
[2024-04-03] MEDS ORDERED: PROPOFOL 10 MG/ML 20 ML VIAL IV ONE (09:56)
[2024-04-03] MEDS ORDERED: ALBUTEROL HFA INHALER INHALATION ONE (09:56)
[2024-04-03] MEDS ORDERED: MIDAZOLAM 2 MG/2 ML VIAL ONE (09:56)
[2024-04-03] MEDS ORDERED: ceFAZolin 1 GM/50 ML BAG (PMX) ONE (09:56)
[2024-04-03] MEDS: SODIUM CHLORIDE 0.9% 100 ML with ceFAZolin 2,000 MG IV ONE (10:01)
--- NOTE | 2024-04-03 10:46 | P.OP ---
Date of Procedure: 04/03/24 Preoperative Diagnosis: Left renal stone Postoperative Diagnosis: Same Procedure(s) Performed: Cystoscopy, left ureteroscopy, holmium laser lithotripsy, stone basketing and stent insertion Implants: 6 [place] by 24 cm stent in the left ureter Anesthesia: KEVEN Surgeon: Radhames Whaley Estimated Blood Loss (ml): 5 Pathology: other (Left renal stone) Condition: stable Disposition: PACU Indications for Procedure: This is a 53-year-old female presented to the hospital with intractable left- sided flank pain. Pain is associated with nausea and vomiting. She underwent a CT abdomen and pelvis that showed evidence of a 7 mm left-sided renal pelvis stone. She denies any fevers, chills, dysuria or gross hematuria. She does have a previous history of kidney stones many years ago which she passed spontaneously. No previous urological surgeries. In the ER she continues to have pain requiring IV pain medications for acute pain control. Operative Findings: Left-sided renal pelvis stone Description of Procedure: Patient brought to the operating room, general anesthesia was induced. She was prepped and draped in sterile fashion placed in dorsolithotomy position. Cystoscopy with a 21 [place] sheath was inserted per urethra, cystoscopy was performed showed no abnormality within the bladder. Attention was then carried to the left ureteral orifice which was intubated with a sensor wire, the wire w as advanced under fluoroscopy to the left kidney. Next a 1113 [place] access sheath was passed over the wire and into the proximal ureter. Next a flexible ureteroscope was inserted through the access sheath, renoscopy was performed showed a large stone in the renal pelvis. Using the holmium laser the stone was dusted, any sizable stone fragments were removed using the stone basket. Repeat renoscopy showed no sizable fragments or injury to the kidney, on fluoroscopy there was no radiopaque density seen. Pullback ureteroscopy was performed which showed a slight mucosal separation along the left proximal ureter but no evidence of ureteral perforation. As the ureteroscope was withdrawn a sensor wire was advanced through. On pullback ureteroscopy there was no additional stones visualized. Next a ureteral stent was passed over the wire, the proximal curl was visualized on fluoroscopy and the distal curl was visualized using the cystoscope. The bladder was emptied at the end of the case. Patient tolerated procedure was taken to recovery in stable condition she will follow-up as an outpatient in 2 weeks for cystoscopy stent removal
[2024-04-03 12:16] LABS: Glucose,Whole Blood 136 mg/dL (70-110)
[2024-04-03] MEDS: ONDANSETRON 4 MG/2 ML VIAL IVP STA (12:17)
--- NOTE | 2024-04-03 13:31 | FL ---
EXAMINATION TYPE: FL guidance operating room DATE OF EXAM: 04/03/2024 11:02 AM COMPARISON: None CLINICAL INDICATION: Female, 53 years old with history of CYSTO WITH STENT INSERTION, , FINDINGS: left side cysto litho in OR fl time18.1 secs dap 2.2662. 4 images are submitted. [facility], , 04/03/2024 1:29 PM
--- NOTE | 2024-04-03 14:28 | P.PN ---
Subjective The patient was reevaluated for her 7 mm stone. She underwent surgery earlier with Dr. Reyes. She had Cystoscopy, left ureteroscopy, holmium laser lithotripsy, stone basketing and stent insertion. She is not doing well postoperatively and is having some nausea. And is currently sleeping. Her is at bedside. Objective - Vital Signs Vital signs: Vital Signs Temp 97.6 F 04/03/24 12:11 Pulse 59 L 04/03/24 13:09 Resp 18 04/03/24 13:09 BP 157/91 04/03/24 13:09 Pulse Ox 93 L 04/03/24 13:09 FiO2 Intake & Output 04/02/24 04/03/24 04/03/24 18:59 06:59 18:59 Intake Total 1340 950 Output Total 0 Balance 1340 950 Weight 90.718 kg 90.718 kg Intake: IV 950 Intake, IV Titration 1100 Amount Dextrose 5%-0.45% NaCl 1, 1100 000 ml @ 20 mls/hr IV . Q24H BRUNA Rx#:[id number] Oral 240 Output: Estimated Blood Loss 0 Other: Voiding Method Toilet Toilet Toilet # Voids 1 - Exam General: Sleeping middle-age obese female emesis basin in her lap Neck: The neck is supple, there is no thyromegaly, lymphadenopathy, tenderness or JVD. Cardiovascular: S1S2 is normal, There is a regular rate and rhythm. No murmur, rub or gallop is appreciated. Respiratory: Lungs are clear to auscultation bilaterally, respirations are non-labored, breath sounds are equal. Gastrointestinal: Soft, non-distended, there is some groaning with palpation, but she is asleep. Hyperactive bowel sounds. Musculoskeletal: Normal ROM, no tenderness, There is no pedal edema. There is no calf tenderness or swelling. No cords were appreciated. Neurological: CN II-XII intact, there are no obvious motor or sensory deficits patient is asleep Skin: Skin is warm and dry and no rashes or lesions are noted. 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 Current Visit: Yes Status: Acute Code(s): E11.59 - TYPE 2 DIABETES MELLITUS WITH OTH CIRCULATORY COMPLICATIONS SNOMED Code(s): 59616462 (3) Type 2 diabetes mellitus with other specified complication Current Visit: Yes Status: Acute Code(s): E11.69 - TYPE 2 DIABETES MELLITUS WITH OTHER SPECIFIED COMPLICATION SNOMED Code(s): 50748772 (4) Hypothyroidism, unspecified Current Visit: Yes Status: Acute Code(s): E03.9 - HYPOTHYROIDISM, UNSPECIFIED SNOMED Code(s): 39620648 (5) Postoperative nausea and vomiting Current Visit: Yes Status: Acute Code(s): R11.2 - NAUSEA WITH VOMITING, UNSPECIFIED; Z98.890 - OTHER SPECIFIED POSTPROCEDURAL STATES SNOMED Code(s): 2511099
[2024-04-03 17:15] LABS: Glucose,Whole Blood 152 mg/dL (70-110)
[2024-04-03 20:33] LABS: Glucose,Whole Blood 146 mg/dL (70-110)
[2024-04-03 21:07] VITALS: RESP 16
[2024-04-04 07:06] LABS: Glucose,Whole Blood 110 mg/dL (70-110)
[2024-04-04] MEDS: ACETAMINOPHEN TAB 325 MG TAB PO PRN (08:40)
--- NOTE | 2024-04-04 11:01 | P.PN ---
Subjective Progress Note Date: 04/04/24 patient is in the hospital for left ureteral calculus and move the stone and place a stent yesterday. Objective - Vital Signs Vital signs: Vital Signs Temp 98.6 F 04/04/24 07:07 Pulse 89 04/04/24 07:07 Resp 16 04/04/24 07:07 BP 115/76 04/04/24 07:07 Pulse Ox 92 L 04/04/24 07:07 FiO2 Intake & Output 04/03/24 04/04/24 04/04/24 18:59 06:59 18:59 Intake Total 950 Output Total 0 Balance 950 Weight 90.718 kg Intake: IV 950 Output: Estimated Blood Loss 0 Other: Voiding Method Toilet Toilet # Voids 1 3 - Labs CBC & Chem 7: 04/03/24 04:40 04/03/24 04:40 Labs: Abnormal Lab Results - Last 24 Hours (Table) 04/03/24 04/03/24 04/03/24 Range/Units 12:15 17:13 20:32 POC Glucose (mg/dL) 136 H 152 H 146 H (70-110) mg/dL Assessment and Plan Assessment: impression: Successful left ureteroscopy laser lithotripsy and stent placement. From urologic standpoint she can be discharged home. She'll follow-up in the office with Dr. stevens next week. This has been discussed with the patient.
[2024-04-04 12:08] LABS: Glucose,Whole Blood 93 mg/dL (70-110)
--- NOTE | 2024-04-04 13:10 | P.DS ---
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 She came the emergency room complaining of left flank pain. CT revealed a 7 mm stone. She is admitted and is waiting on urology consultation. She denies any chest pains pressure shortness of katie ath this time. She is minimally tolerating diet. Vital signs show she is afebrile heart rate and respiratory rate under blood pressure control. Labs are essentially normal urinalysis showed large amount of blood. 04/03/24 The patient was reevaluated for her 7 mm stone. She underwent surgery earlier with Dr. Reyes. She had Cystoscopy, left ureteroscopy, holmium laser lithotripsy, stone basketing and stent insertion. She is not doing well postoperatively and is having some nausea. And is currently sleeping. Her is at bedside. 04/04/2024: Patient is doing well, she is tolerating a diet, still feels weak, but should be discharged home to the care of her . Plan - Discharge Summary Discharge Rx Participant: Yes New Discharge Prescriptions: New HYDROcodone/APAP 7.5-325MG [[place] 7.5-325] 1 tab PO Q6HR PRN 7 Days #28 tab PRN Reason: Pain/Discomfort Acetaminophen Tab [Tylenol] 650 mg PO Q6HR PRN #0 tab PRN Reason: Mild Pain Or Fever > 100.5 Continue Triamterene/Hydrochlorothiazid [Triamterene-Hctz 37.5-25 mg Tb] 1 tab PO DAILY Albuterol Inhaler [Ventolin Hfa Inhaler] 2 puff INHALATION RT-Q4H PRN PRN Reason: Shortness Of Breath Omeprazole 20 mg PO AC-BRKFST Semaglutide [Ozempic] 1 mg SQ TU Elderberry Fruit and Flower [Black Elderberry 575 mg Cap] 1 cap PO DAILY metFORMIN HCL [Glucophage] 500 mg PO BID-W/MEALS Atorvastatin [Lipitor] 20 mg PO DAILY carisoprodoL [Soma] 350 mg PO QID PRN PRN Reason: Muscle Spasm/Pain ALPRAZolam [Xanax] 0.25 mg PO BID PRN PRN Reason: Anxiety Black Seed Oil 1 cap PO DAILY Amitriptyline HCl [Elavil] 75 mg PO HS Discharge Medication List Albuterol Inhaler [Ventolin Hfa Inhaler] 2 puff INHALATION RT-Q4H PRN 06/25/21 [History] Triamterene/Hydrochlorothiazid [Triamterene-Hctz 37.5-25 mg Tb] 1 tab PO DAILY 06/25/21 [History] Omeprazole 20 mg PO AC-BRKFST 11/02/21 [History] metFORMIN HCL [Glucophage] 500 mg PO BID-W/MEALS 11/02/21 [History] Atorvastatin [Lipitor] 20 mg PO DAILY 02/16/22 [History] ALPRAZolam [Xanax] 0.25 mg PO BID PRN 04/02/24 [History] Amitriptyline HCl [Elavil] 75 mg PO HS 04/02/24 [History] Black Seed Oil 1 cap PO DAILY 04/02/24 [History] Elderberry Fruit and Flower [Black Elderberry 575 mg Cap] 1 cap PO DAILY 04/02/24 [History] Semaglutide [Ozempic] 1 mg SQ TU 04/02/24 [History] carisoprodoL [Soma] 350 mg PO QID PRN 04/02/24 [History] Acetaminophen Tab [Tylenol] 650 mg PO Q6HR PRN #0 tab 04/04/24 [Rx] HYDROcodone/APAP 7.5-325MG [[place] 7.5-325] 1 tab PO Q6HR PRN 7 Days #28 tab 04/04/24 [Rx] Follow up Appointment(s)/Referral(s): Radhames Whaley MD [STAFF PHYSICIAN] - 04/16/24 3:00 pm Chino Amador MD [Primary Care Provider] - 1-2 days Patient Instructions/Handouts: Ureteral Stent Placement (DC), Lithotripsy (DC) Discharge Disposition: HOME SELF-CARE
[2024-04-04 13:31] VITALS: BP 131/78; PULSE 85; TEMP 98.1
== END 2024-04-04 15:44 | disposition home or self-care (01) ==
LOC: EC 02:46 → 6NMEDSUR 07:21 → 5NMEDONC 08:00
PROVIDERS: ADMIT Family Medicine; ATTEND Family Medicine
DX: N20.2 Calculus of kidney with calculus of ureter (principal); K91.89 Other postprocedural complications and disorders of digestive system; I10 Essential (primary) hypertension; E78.5 Hyperlipidemia, unspecified; E11.59 Type 2 diabetes mellitus with other circulatory complications; E11.69 Type 2 diabetes mellitus with other specified complication; J44.89 Other specified chronic obstructive pulmonary disease; G47.33 Obstructive sleep apnea (adult) (pediatric); G43.909 Migraine, unspecified, not intractable, without status migrainosus; K21.9 Gastro-esophageal reflux disease without esophagitis; E03.9 Hypothyroidism, unspecified; E66.9 Obesity, unspecified; Z68.36 Body mass index [BMI] 36.0-36.9, adult; Z79.84 Long term (current) use of oral hypoglycemic drugs; Z79.85 Long-term (current) use of injectable non-insulin antidiabetic drugs; Z79.899 Other long term (current) drug therapy; Z88.0 Allergy status to penicillin; Z88.5 Allergy status to narcotic agent; Z88.6 Allergy status to analgesic agent; Z87.442 Personal history of urinary calculi; Z98.84 Bariatric surgery status
CPT/HCPCS: 96372; 96376; 96361; 96374; 96375; 99285; 36415; 80053; 80048; 82150; 83605; 83690; 85025 ×2; 81001; 82365; 74177; 52356; G0378 ×4; C2625; C1769; J2250; J0330; J2270 ×3; J1100; J2405 ×2; J0690 ×2; J2003; J1650; J3010; J2704; Q9967; J2470

== ENCOUNTER 2024-11-18 16:00 | Emergency (ER) | payer BC ==
[2024-11-18 16:04] VITALS: BP 145/85; PULSE 72; RESP 18; TEMP 98
[2024-11-18] MEDS: IPRATROPIUM-ALBUTEROL 3 ML NEB INHALATION STA (16:45)
[2024-11-18] MEDS: SODIUM CHLORIDE 0.9% 1,000 ML IV STA (16:46)
[2024-11-18] MEDS: methylPREDNISolone SOD SUCCI 125 MG/2 ML VIAL IV STA (16:46)
--- NOTE | 2024-11-18 17:18 | ED ---
Extremity Problem HPI - General Chief complaint: Extremity Problem,Nontraumatic Stated complaint: R wrist numbness/pain Time Seen by Provider: 11/18/24 16:17 Source: patient, RN notes reviewed Mode of arrival: ambulatory Limitations: no limitations - History of Present Illness Initial comments: This is a 54-year-old female with history including DM, hypertension and COPD presenting for right wrist pain (02/15) x 2 weeks. Patient states pain is worse today with associated numbness/tingling. Patient states she is unable to lift arm sufficiently for the past 3 days. 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 Endorses use of Tylenol with minimal relief. Denies unilateral paresthesia, hemiplegia, recent trauma/fall. MD Complaint: joint pain Onset/Timin -: week(s) Location: right, upper extremity History of Same: No Radiation: proximal Severity scale (1-10): 10 Quality: other (Numb, tingling) Consistency: constant Improves with: immobilization Worsens with: exertion, palpation Associated Symptoms: denies other symptoms - Related Data Home Medications Medication Instructions Recorded Confirmed Albuterol Inhaler [Ventolin Hfa 2 puff INHALATION RT-Q4H PRN 06/25/21 04/02/24 Inhaler] Triamterene/Hydrochlorothiazid 1 tab PO DAILY 06/25/21 04/02/24 [Triamterene-Hctz 37.5-25 mg Tb] Omeprazole 20 mg PO AC-BRKFST 11/02/21 04/02/24 metFORMIN HCL [Glucophage] 500 mg PO BID-W/MEALS 11/02/21 04/02/24 Atorvastatin [Lipitor] 20 mg PO DAILY 02/16/22 04/02/24 ALPRAZolam [Xanax] 0.25 mg PO BID PRN 04/02/24 04/02/24 Amitriptyline HCl [Elavil] 75 mg PO HS 04/02/24 04/02/24 Black Seed Oil 1 cap PO DAILY 04/02/24 04/02/24 Elderberry Fruit and Flower [Black 1 cap PO DAILY 04/02/24 04/02/24 Elderberry 575 mg Cap] Semaglutide [Ozempic] 1 mg SQ TU 04/02/24 04/02/24 carisoprodoL [Soma] 350 mg PO QID PRN 04/02/24 04/02/24 Previous Rx's Medication Instructions Recorded Acetaminophen Tab [Tylenol] 650 mg PO Q6HR PRN #0 tab 04/04/24 HYDROcodone/APAP 7.5-325MG [[place] 1 tab PO Q6HR PRN 7 Days #28 tab 04/04/24 7.5-325] Lidocaine 4% Patch 1 patch TOPICAL Q24H PRN #10 patch 11/18/24 Allergies Allergy/AdvReac Type Severity Reaction Status Date / Time aspirin Allergy Severe Swelling Verified 04/03/24 09:25 throat codeine Allergy Severe Swelling Verified 04/03/24 09:25 throat Penicillins Allergy Severe Swelling Verified 04/03/24 09:25 throat Review of Systems ROS Statement: Those systems with pertinent positive or pertinent negative responses have been documented in the HPI. ROS Other: All systems not noted in ROS Statement are negative. Past Medical History Past Medical History: Asthma, COPD, Diabetes Mellitus, Hypertension, Thyroid Disorder Additional Past Medical History / Comment(s): Migraines, lymphodema History of Any Multi-Drug Resistant Organisms: None Reported Past Surgical History: Bariatric Surgery, Uterine Ablation Additional Past Surgical History / Comment(s): gastric sleeve Past Anesthesia/Blood Transfusion Reactions: No Reported Reaction Past Psychological History: No Psychological Hx Reported Smoking Status: Never smoker Past Alcohol Use History: Rare Past Drug Use History: None Reported - Past Family History Mother Family Medical History: Chest Pain / Angina, Congestive Heart Failure (CHF), COPD, Diabetes Mellitus, Hypertension Father Family Medical History: Congestive Heart Failure (CHF), COPD, Coronary Artery Disease (CAD), Diabetes Mellitus, Hypertension, Renal Disease Sister(s) Family Medical History: No Reported History Brother(s) Family Medical History: No Reported History Son(s) Family Medical History: No Reported History General Exam Limitations: no limitations General appearance: alert, in no apparent distress Head exam: Present: atraumatic, normocephalic, normal inspection Eye exam: Present: normal appearance, PERRL, EOMI. Absent: scleral icterus, conjunctival injection, periorbital swelling ENT exam: Present: normal exam, mucous membranes moist Neck exam: Present: normal inspection. Absent: tenderness, meningismus, lymphadenopathy Respiratory exam: Present: normal lung sounds bilaterally, wheezes, prolonged expiratory. Absent: respiratory distress, rales, rhonchi, stridor Cardiovascular Exam: Present: regular rate, normal rhythm, normal heart sounds. Absent: systolic murmur, diastolic murmur, rubs, gallop, clicks GI/Abdominal exam: Present: soft, normal bowel sounds. Absent: distended, tenderness, guarding, rebound, rigid Extremities exam: Present: full ROM, tenderness (Positive diffuse right wrist an d hand tenderness, extending superior along ulnar aspect), normal capillary refill, other (Negative TTP at anatomical snuffbox, lateral/medial epicondyle, shoulder, cervical spine. Positive Tinel, Phalen, Kimi. Distal neurovascular and motor function intact. Capillary refill less than 2 seconds). Absent: pedal edema, joint swelling, calf tenderness Back exam: Present: normal inspection Neurological exam: Present: alert, oriented X3, CN II-XII intact Psychiatric exam: Present: normal affect, normal mood Skin exam: Present: warm, dry, intact, normal color. Absent: rash Course Vital Signs 11/18/24 16:01 Temperature 98.0 F Pulse Rate 72 Respiratory 18 Rate Blood Pressure 145/85 O2 Sat by Pulse 98 Oximetry Medical Decision Making - Medical Decision Making Was pt. sent in by a medical professional or institution (, PA, DIRECTOR STYLE, urgent care, hospital, or shelter...) When possible be specific @ -No Did you speak to anyone other than the patient for history (EMS, parent, family, police, friend...)? What history was obtained from this source @ -No Did you review nursing and triage notes (agree or disagree)? Why? @ -I reviewed and agree with nursing and triage notes Were old charts reviewed (outside hosp., previous admission, EMS record, old EKG, old radiological studies, urgent care reports/EKG's, shelter records)? Report findings @ -No old charts were reviewed Differential Diagnosis (chest pain, altered mental status, abdominal pain women, abdominal pain men, vaginal bleeding, weakness, fever, dyspnea, syncope, headache, dizziness, GI bleed, back pain, seizure, CVA, palpatations, mental health, musculoskeletal)? @ -Differential Musculoskeletal Muscular strain, contusion, ligament sprain, fracture, arthritis, septic arthritis, bursitis, cellulitis, muscle spasm, nerve compression, DVT, arterial occlusion, herpes zoster, electrolyte abnormality, tumor.... This is not meant to be in all inclusive list EKG interpreted by me (3pts min.). @ -Not done X-rays interpreted by me (1pt min.). @ - Right wrist x-ray shows no acute fracture or dislocation with mild degenerative changes at the joints of the wrist. CT interpreted by me (1pt min.). @ -None done U/S interpreted by me (1pt. min.). @ -None done What testing was considered but not performed or refused? (CT, X-rays, U/S, labs)? Why? @ -None What meds were considered but not given or refused? Why? @ -None Did you discuss the management of the patient with other professionals (professionals i.e. , PA, DIRECTOR STYLE, lab, RT, psych nurse, social worker palliative care, information systems architect, teacher, child support case officer, therapeutic case manager)? Give summary @ -No Was smoking cessation discussed for >3mins.? @ -No Was critical care preformed (if so, how long)? @ -No Were there social determinants of health that impacted care today? How? (Homelessness, low income, unemployed, alcoholism, drug addiction, transportation, low edu. Level, literacy, decrease access to med. care, longterm, rehab)? @ -No Was there de-escalation of care discussed even if they declined (Discuss DNR or withdrawal of care, Hospice)? DNR status @ -No What co-morbidities impacted this encounter? (DM, HTN, Smoking, COPD, CAD, Cancer, CVA, ARF, Chemo, Hep., AIDS, mental health diagnosis, sleep apnea, morbid obesity)? @ -None Was patient admitted / discharged? Hospital course, mention meds given and route, prescriptions, significant lab abnormalities, going to OR and other pertinent info. @ -Patient initially provided IV normal saline, Solu-Medrol, DuoNeb treatment for wheezing and lidocaine patch. Right wrist x-ray shows no acute fracture or dislocation with mild degenerative changes at the joints of the wrist. Based on HPI and physical exam findings, patient diagnosed with carpal tunnel syndrome and de Quervain tenosynovitis. Lidocaine patch sent to pharmacy. Advised patient to purchase wrist plan for nighttime. Advised follow-up with PCP/orthopedics for ongoing management of carpal tunnel syndrome. Discussed patient with Dr. Chávez. Undiagnosed new problem with uncertain prognosis? @ -No Drug Therapy requiring intensive monitoring for toxicity (Heparin, Nitro, Insulin, Cardizem)? @ -No Were any procedures done? @ -No Diagnosis/symptom? @ -Carpal tunnel, de Quervain tenosynovitis Acute, or Chronic, or Acute on Chronic? @ -Acute Uncomplicated (without systemic symptoms) or Complicated (systemic symptoms)? @ -Uncomplicated Side effects of treatment? @ -No Exacerbation, Progression, or Severe Exacerbation? @ -No Poses a threat to life or bodily function? How? (Chest pain, [place], [place], pneumonia, PE, COPD, DKA, ARF, appy, cholecystitis, CVA, Diverticulitis, Homicidal, Suicidal, threat to staff... and all critical care pts) @ -No Disposition Clinical Impression: Carpal tunnel syndrome of right wrist, De Quervain's tenosynovitis, right Disposition: HOME SELF-CARE Condition: Good Instructions (If sedation given, give patient instructions): De Quervain Disease (ED), Paresthesia (ED), Carpal Tunnel Surgery (DC) Additional Instructions: Apply splint at night to prevent pain while sleeping. Tylenol every 4-6 hours as needed for pain. Follow-up with PCP/orthopedics for ongoing evaluation management of wrist pain. Prescriptions: Lidocaine 4% Patch 1 patch TOPICAL Q24H PRN #10 patch PRN Reason: Pain Is patient prescribed a controlled substance at d/c from ED?: No Referrals: Chino Amador MD [Primary Care Provider] - 1-2 days [facility] [Provider Group] - 1-2 days [facility] [Provider Group] - 1-2 days Time of Disposition: 17:18
--- NOTE | 2024-11-18 17:32 | XR ---
EXAMINATION TYPE: XR wrist complete RT DATE OF EXAM: 11/18/2024 4:56 PM COMPARISON: None CLINICAL INDICATION: Female, 54 years old with history of Atraumatic wrist pain; PHH, pain TECHNIQUE: XR wrist complete RT; examined in the Frontal, navicular, lateral, and oblique. FINDINGS: No acute osseous pathology, joint dislocation, or joint effusion. No evidence of any soft tissue swelling is seen. Degeneration changes worse at the first digit metacarpophalangeal joint spac e narrowing osteophyte formation. IMPRESSION: 1. No acute osseous pathology. 2. Mild degeneration changes of the joints of the wrist with osteophyte formation joint space. [facility], , 11/18/2024 5:29 PM
[2024-11-18] MEDS: LIDOCAINE 4% PATCH TOPICAL ONE (17:47)
== END 2024-11-18 18:07 | disposition home or self-care (01) ==
LOC: EC 16:00
DX: G56.01 Carpal tunnel syndrome, right upper limb (principal); M65.4 Radial styloid tenosynovitis [de Quervain]; Z88.0 Allergy status to penicillin; Z88.5 Allergy status to narcotic agent; Z88.6 Allergy status to analgesic agent
CPT/HCPCS: 99283

== ENCOUNTER 2024-12-04 19:40 | Emergency (ER) | payer BC ==
[2024-12-04 20:00] VITALS: RESP 18; TEMP 98.2
--- NOTE | 2024-12-04 20:22 | ED ---
Recheck HPI - General Source: patient Mode of arrival: ambulatory Limitations: no limitations <Jammie Smith - Last Filed: 12/04/24 20:21> <Rosalio Ochoa - Last Filed: 12/04/24 23:29> - General Chief Complaint: Recheck/Abnormal Lab/Rx Stated Complaint: Feet pain,Diabetic Issues Time Seen by Provider: 12/04/24 20:21 - History of Present Illness Initial Comments: Quick note: 54-year-old female presented to the ER for evaluation of hyperglycemia and bilateral feet pain. Patient states she has been experiencing pain to her bilateral feet. Her looked at the bottoms of her feet today and notes "pits" patient is concerned of infection. (Jammie Smith) 54-year-old female presenting with chief complaint of "my sugar is high and my feet hurt". History of diabetes, states at home her sugar was 160 which is "high for her". He was also having pain to the bilateral feet. She saw some "holes" on the bottom of her feet and was concerned for infection given her hist ory of diabetes. No fever. No redness or swelling. No discharge or bleeding. No injury or trauma. (Rosalio Ochoa) - Related Data Home Medications Medication Instructions Recorded Confirmed Albuterol Inhaler [Ventolin Hfa 2 puff INHALATION RT-Q4H PRN 06/25/21 04/02/24 Inhaler] Triamterene/Hydrochlorothiazid 1 tab PO DAILY 06/25/21 04/02/24 [Triamterene-Hctz 37.5-25 mg Tb] Omeprazole 20 mg PO AC-BRKFST 11/02/21 04/02/24 metFORMIN HCL [Glucophage] 500 mg PO BID-W/MEALS 11/02/21 04/02/24 Atorvastatin [Lipitor] 20 mg PO DAILY 02/16/22 04/02/24 ALPRAZolam [Xanax] 0.25 mg PO BID PRN 04/02/24 04/02/24 Amitriptyline HCl [Elavil] 75 mg PO HS 04/02/24 04/02/24 Black Seed Oil 1 cap PO DAILY 04/02/24 04/02/24 Elderberry Fruit and Flower [Black 1 cap PO DAILY 04/02/24 04/02/24 Elderberry 575 mg Cap] Semaglutide [Ozempic] 1 mg SQ TU 04/02/24 04/02/24 carisoprodoL [Soma] 350 mg PO QID PRN 04/02/24 04/02/24 Previous Rx's Medication Instructions Recorded Acetaminophen Tab [Tylenol] 650 mg PO Q6HR PRN #0 tab 04/04/24 HYDROcodone/APAP 7.5-325MG [[place] 1 tab PO Q6HR PRN 7 Days #28 tab 04/04/24 7.5-325] Lidocaine 4% Patch 1 patch TOPICAL Q24H PRN #10 patch 11/18/24 Allergies Allergy/AdvReac Type Severity Reaction Status Date / Time aspirin Allergy Severe Swelling Verified 12/04/24 19:59 throat codeine Allergy Severe Swelling Verified 12/04/24 19:59 throat Penicillins Allergy Severe Swelling Verified 12/04/24 19:59 throat Review of Systems ROS Other: All systems not noted in ROS Statement are negative. <Jammie Smith - Last Filed: 12/04/24 20:21> ROS Other: All systems not noted in ROS Statement are negative. <Rosalio Ochoa - Last Filed: 12/04/24 23:29> ROS Statement: Those systems with pertinent positive or pertinent negative responses have been documented in the HPI. Past Medical History Past Medical History: Asthma, COPD, Diabetes Mellitus, Hypertension, Thyroid Disorder Additional Past Medical History / Comment(s): Migraines, lymphodema History of Any Multi-Drug Resistant Organisms: None Reported Past Surgical History: Bariatric Surgery, Uterine Ablation Additional Past Surgical History / Comment(s): gastric sleeve Past Anesthesia/Blood Transfusion Reactions: No Reported Reaction Past Psychological History: No Psychological Hx Reported Smoking Status: Never smoker Past Alcohol Use History: Rare Past Drug Use History: None Reported - Past Family History Mother Family Medical History: Chest Pain / Angina, Congestive Heart Failure (CHF), COPD, Diabetes Mellitus, Hypertension Father Family Medical History: Congestive Heart Failure (CHF), COPD, Coronary Artery Disease (CAD), Diabetes Mellitus, Hypertension, Renal Disease Sister(s) Family Medical History: No Reported History Brother(s) Family Medical History: No Reported History Son(s) Family Medical History: No Reported History <Jammie Smith - Last Filed: 12/04/24 20:21> General Exam Limitations: no limitations <Jammie Smith - Last Filed: 12/04/24 20:21> Limitations: no limitations General appearance: alert, in no apparent distress Head exam: Present: atraumatic, normocephalic, normal inspection Eye exam: Present: normal appearance, EOMI Neck exam: Present: normal inspection. Absent: meningismus Respiratory exam: Absent: respiratory distress Cardiovascular Exam: Present: regular rate Left Foot/Toe exam: Present: normal inspection Right Foot/Toe exam: Present: normal inspection Neurological exam: Present: alert, oriented X3 Psychiatric exam: Present: normal affect, normal mood Skin exam: Present: warm, dry, intact, normal color <Rosalio Ochoa - Last Filed: 12/04/24 23:29> - General Exam Comments Initial Comments: Visual Physical Exam Vital signs reviewed General: Well-appearing, nontoxic, no acute distress. Head: Normocephalic, atraumatic Eyes: PERRLA, EOMI ENT: Airway patent Chest: Nonlabored breathing Skin: No visual rash, normal skin tone Neuro: Alert and oriented 3 Musculoskeletal: No gross abnormalities (Jammie Smith) Course Vital Signs 12/04/24 19:57 Temperature 98.2 F Pulse Rate 67 Respiratory 18 Rate Blood Pressure 153/83 O2 Sat by Pulse 97 Oximetry Medical Decision Making <Jammie Smith - Last Filed: 12/04/24 20:21> - Lab Data Result diagrams: 12/04/24 20:22 12/04/24 20:22 <Rosalio Ochoa - Last Filed: 12/04/24 23:29> - Medical Decision Making I performed the quick note portion of this chart. Electronically signed by Jammie Smith PA-C (Jammie Smith) Was pt. sent in by a medical professional or institution (DIOR Xiong, POT OPERATOR, urgent care, hospital, or [facility]...) When possible be specific @ -No Did you speak to anyone other than the patient for history (EMS, parent, family, police, friend...)? What history was obtained from this source @ -No Did you review nursing and triage notes (agree or disagree)? Why? @ -I reviewed and agree with nursing and triage notes Were old charts reviewed (outside hosp., previous admission, EMS record, old EKG, old radiological studies, urgent care reports/EKG's, [facility] records)? Report findings @ -No old charts were reviewed Differential Diagnosis (chest pain, altered mental status, abdominal pain women, abdominal pain men, vaginal bleeding, weakness, fever, dyspnea, syncope, headache, dizziness, GI bleed, back pain, seizure, CVA, palpatations, mental health, musculoskeletal)? @ -Differential includes diabetic hyperglycemia, DKA, diabetic foot infection, not noninclusive list EKG interpreted by me (3pts min.). @ -As above X-rays interpreted by me (1pt min.). @ -None done CT interpreted by me (1pt min.). @ -None done U/S interpreted by me (1pt. min.). @ -None done What testing was considered but not performed or refused? (CT, X-rays, U/S, labs)? Why? @ -None What meds were considered but not given or refused? Why? @ -None Did you discuss the management of the patient with other professionals (professionals i.e. , PA, POT OPERATOR, lab, RT, psych nurse, psychologist social, private security guard, teacher, procurement officer, adult protective caseworker)? Give summary @ -No Was smoking cessation discussed for >3mins.? @ -No Was critical care preformed (if so, how long)? @ -No Were there social determinants of health that impacted care today? How? ([place] elessness, low income, unemployed, alcoholism, drug addiction, transportation, low edu. Level, literacy, decrease access to med. care, group home, rehab)? @ -No Was there de-escalation of care discussed even if they declined (Discuss DNR or withdrawal of care, Hospice)? DNR status @ -No What co-morbidities impacted this encounter? (DM, HTN, Smoking, COPD, CAD, Cancer, CVA, ARF, Chemo, Hep., AIDS, mental health diagnosis, sleep apnea, morbid obesity)? @ -None Was patient admitted / discharged? Hospital course, mention meds given and route, prescriptions, significant lab abnormalities, going to OR and other pertinent info. @ -54-year-old female presented chief complaint of elevated blood sugar and bilateral foot pain. No injury or trauma. Sugar is 110. Anion gap and CO2 are normal. Feet are normal on inspection with no evidence of infection or trauma. She is educated on today's findings. She will follow-up with her PCP Dr. Amador. Follow-up with PCP. Report back to ER with any new or worsening symptoms. Discussed return parameters and answered all questions. Patient conveyed verbal understanding and agreed to the plan. I discussed this case in detail with my attending Dr. Solomon Undiagnosed new problem with uncertain prognosis? @ -No Drug Therapy requiring intensive monitoring for toxicity (Heparin, Nitro, Insulin, Cardizem)? @ -No Were any procedures done? @ -No Diagnosis/symptom? @ -Hyperglycemia Acute, or Chronic, or Acute on Chronic? @ -Acute Uncomplicated (without systemic symptoms) or Complicated (systemic symptoms)? @ -Uncomplicated Side effects of treatment? @ -No Exacerbation, Progression, or Severe Exacerbation? @ -No Poses a threat to life or bodily function? How? (Chest pain, [place], [place], pneumonia, PE, COPD, DKA, ARF, appy, cholecystitis, CVA, Diverticulitis, Homicidal, Suicidal, threat to staff... and all critical care pts) @ -Unlikely (Rosalio Ochoa) - Lab Data Lab Results 12/04/24 12/04/24 Range/Units 20:22 20:22 WBC 7.74 (4.50-10.00) 10*3/uL RBC 4.91 (4.10-5.20) 10*6/uL Hgb 14.7 (12.0-15.0) g/dL Hct 42.5 (37.2-46.3) % MCV 86.6 (80.0-97.0) fL MCH 29.9 (27.0-32.0) pg MCHC 34.6 (32.0-37.0) g/dL Plt Count 217 (140-440) 10*3/uL MPV 10.5 (9.5-12.2) fL Immature Gran % (Auto) 0.3 % Neutrophils % 55.8 % Lymphocytes % 34.2 % Monocytes % 8.5 % Eosinophils % 0.8 % Basophils % 0.4 % Immature Gran # 0.02 (0.00-0.04) 10*3/uL Neutrophils # 4.32 (1.80-7.70) 10*3/uL Lymphocytes # 2.65 (0.90-5.00) 10*3/uL Monocytes # 0.66 (0.20-1.00) 10*3/uL Eosinophils # 0.06 (0.04-0.35) 10*3/uL Basophils # 0.03 (0.00-0.10) 10*3/uL Sodium 139 (137-145) mmol/L Potassium 4.7 (3.5-5.1) mmol/L Chloride 101 (98-107) mmol/L Carbon Dioxide 29 (22-30) mmol/L Anion Gap 9 mmol/L BUN 23 H (7-17) mg/dL Creatinine 0.74 (0.52-1.04) mg/dL Est GFR (CKD-EPI)AfAm >90 (>60 ml/min/1.73 sqM) Est GFR (CKD-EPI)NonAf >90 (>60 ml/min/1.73 sqM) Glucose 110 H (74-99) mg/dL Calcium 9.6 (8.4-10.2) mg/dL Total Bilirubin 0.4 (0.2-1.3) mg/dL AST 27 (14-36) U/L ALT 26 (4-34) U/L Alkaline Phosphatase 85 (38-126) U/L Total Protein 7.2 (6.3-8.2) g/dL Albumin 4.7 (3.5-5.0) g/dL Disposition <Jammie Smith - Last Filed: 12/04/24 20:21> Is patient prescribed a controlled substance at d/c from ED?: No Time of Disposition: 23:16 <Rosalio Ochoa - Last Filed: 12/04/24 23:29> Clinical Impression: Hyperglycemia Disposition: HOME SELF-CARE Condition: Good Instructions (If sedation given, give patient instructions): Diabetic Hyperglycemia (ED) Additional Instructions: Follow-up with PCP. Report back to ER with any new or worsening symptoms. Referrals: Chino Amador MD [Primary Care Provider] - 1-2 days
[2024-12-04 22:07] LABS: ALT 26 U/L (4-34); AST 27 U/L (14-36); African American GFR (CKD) >90 (>60 ml/min/1.73 sqM); Albumin 4.7 g/dL (3.5-5.0); Alkaline Phosphatase 85 U/L (38-126); Anion Gap 9 mmol/L; Blood Urea Nitrogen 23 mg/dL (7-17); Calcium 9.6 mg/dL (8.4-10.2); Carbon Dioxide 29 mmol/L (22-30); Chloride 101 mmol/L (98-107); Glucose 110 mg/dL (74-99); Non-African American GFR(CKD) >90 (>60 ml/min/1.73 sqM); Potassium 4.7 mmol/L (3.5-5.1); Sodium 139 mmol/L (137-145); Total Protein 7.2 g/dL (6.3-8.2)
[2024-12-04 22:19] LABS: Basophils # (A) 0.03 10*3/uL (0.00-0.10); Basophils % (A) 0.4 %; Eosinophils # (A) 0.06 10*3/uL (0.04-0.35); Eosinophils % (A) 0.8 %; HCT 42.5 % (37.2-46.3); HGB 14.7 g/dL (12.0-15.0); Lymphocytes # (A) 2.65 10*3/uL (0.90-5.00); Lymphocytes % (A) 34.2 %; MCH 29.9 pg (27.0-32.0); MCHC 34.6 g/dL (32.0-37.0); MCV 86.6 fL (80.0-97.0); Monocytes # (A) 0.66 10*3/uL (0.20-1.00); Monocytes % (A) 8.5 %; Neutrophils # (A) 4.32 10*3/uL (1.80-7.70); Neutrophils % (A) 55.8 %; Platelet Count 217 10*3/uL (140-440); RBC 4.91 10*6/uL (4.10-5.20); RDW 12.5 % (11.5-14.5); WBC 7.74 10*3/uL (4.50-10.00)
[2024-12-04 23:58] VITALS: BP 123/84; PULSE 69
== END 2024-12-04 23:58 | disposition home or self-care (01) ==
LOC: EC 19:40
DX: E11.65 Type 2 diabetes mellitus with hyperglycemia (principal); Z88.0 Allergy status to penicillin; Z82.5 Family history of asthma and other chronic lower respiratory diseases; Z88.6 Allergy status to analgesic agent
CPT/HCPCS: 36415; 80053; 85025; 99284